=== PATIENT | female | born 1960 | race Caucasian/White ===

== ENCOUNTER 2022-08-16 12:58 | Outpatient (CLI) | payer BC, SELFPAY ==
[2022-08-16 17:07] LABS: Chloride* 96 mmol/L (96-114); Potassium* 4.6 mmol/L (3.6-5.1); Sodium* 130 mmol/L (135-149)
[2022-08-16 17:10] LABS: Blood Urea Nitrogen* 22 mg/dL (7-30); Carbon Dioxide* 22 mmol/L (20-32); Creatinine* 1.2 mg/dL (0.5-1.5); Estimated Glomerular Filt Rate 51 ml/min
[2022-08-16 17:11] LABS: Calcium* 10.2 mg/dL (8.4-10.6); Glucose* 123 mg/dL (60-115)
== END 2022-08-16 12:59 | disposition home or self-care (01) ==
PROVIDERS: PCP Family Medicine; Visit Provider Family Medicine
DX: I10 Essential (primary) hypertension (principal)
CPT/HCPCS: 80048

== ENCOUNTER 2023-02-14 08:46 | Outpatient (CLI) | payer BC, SELFPAY | END 2023-02-14 08:47 | disposition home or self-care (01) | LOC: NFLDREF 08:49 | PROVIDERS: PCP Family Medicine; Visit Provider Family Medicine | DX: E11.9 Type 2 diabetes mellitus without complications (principal); R68.89 Other general symptoms and signs; I10 Essential (primary) hypertension | CPT/HCPCS: 80061; 84443 ==

== ENCOUNTER 2023-04-21 10:43 | Outpatient (CLI) | payer MEDICARE, SELFPAY | END 2023-04-21 10:44 | disposition home or self-care (01) | LOC: NFLDREF 04-22 18:20 | PROVIDERS: PCP Family Medicine; Referring Provider Family Medicine; Visit Provider Family Medicine | DX: R31.9 Hematuria, unspecified (principal) | CPT/HCPCS: 81015 ==

== ENCOUNTER 2023-04-29 08:48 | Outpatient (CLI) | payer MEDICARE, SELFPAY ==
--- NOTE | 2023-04-29 09:00 | CRLHL7_ITS ---
For Patients: As a result of the Cures Act, medical imaging exams and procedure reports are released immediately into your electronic medical record. You may view this report before your referring provider. If you have questions, please contact your health care provider. Indication: RECURRENT UTIS Technique: Noncontrast CT abdomen and pelvis Please note that all CT scans at this facility use dose modulation, iterative reconstruction, and/or weight-based dosing when appropriate to reduce radiation dose to as low as reasonably achievable. Comparison: 04/03/2010 Findings: Scarring is present in both lung bases. No pleural effusion. Incidental calcification associated with the dome of the liver is unchanged. The gallbladder is absent. No biliary obstruction. Normal pancreas. The spleen is normal. The adrenal glands are unremarkable. No renal or ureteral stone. No hydronephrosis or hydroureter. No perinephric or periureteral stranding. The bladder is normal without stone or wall thickening. Normal uterus and ovaries. Sigmoid diverticulosis. No diverticulitis. No air within the bladder. Appendix appears normal. No adenopathy in the abdomen or pelvis. Atherosclerotic disease. No fracture. Postop changes of lumbar fusion L4-5. Severe degenerative disc disease L3-4. Impression: No renal, ureteral or bladder stone. No inflammatory changes. No urinary tract obstruction. Sigmoid diverticulosis. No diverticulitis. Please note that all CT scans at this facility use dose modulation, iterative reconstruction, and/or weight-based dosing when appropriate to reduce radiation dose to as low as reasonably achievable. Dictated by Rip Hunter MD @ 04/29/2023 12:36:32 PM (Electronically Signed)
== END 2023-04-29 08:49 | disposition home or self-care (01) ==
LOC: CT 08:49
PROVIDERS: PCP Family Medicine; Visit Provider Family Medicine
DX: N39.0 Urinary tract infection, site not specified (principal); K57.30 Diverticulosis of large intestine without perforation or abscess without bleeding
CPT/HCPCS: 74176

== ENCOUNTER 2023-05-10 02:01 | Emergency (ER) | payer MEDICARE, SELFPAY ==
[2023-05-10 02:06] VITALS: BP 171/84; PULSE 98; RESP 16; TEMP 36.1; O2SAT 98
[2023-05-10 02:16] LABS: Appearance Urine Clear (Clear); Bilirubin Urine Negative (Negative); Blood Urine Negative (Negative); Color Urine Yellow (Yellow); Glucose Urine Negative (Negative); Ketones Urine Negative (Negative); Leukocyte Esterase Urine Negative (Negative); Nitrite Urine Negative (Negative); Protein Urine Negative (Negative); Specific Gravity Urine <= 1.005 (1.000-1.030); Urobilinogen Urine 0.2 (0.2-1.0); pH Urine 5.5 (5.0-8.5)
--- NOTE | 2023-05-10 02:28 | ED.FEMALEGU ---
HPI - Female Genitourinary General Chief complaint: Urogenital Problems, Female Stated complaint: UTI Time Seen by Provider: 05/10/23 02:15 History of Present Illness HPI Narrative: Patient is a 63-year-old woman comes in stating that her chronic dysuria is worse. Patient has chronic UTIs and takes a version of Bactrim Double Strength that she got in [place]. Patient is lower abdominal cramping urinary frequency and dysuria. She states she has felt febrile at home but does not have a fever here. She has had mild nausea with no vomiting. She has had no vaginal discharge. She has not had a recent UA but states that her symptoms change this evening. No other significant symptoms noted. Related Data Home Medications Medication Instructions Recorded Confirmed albuterol sulfate 0.63 mg/3 mL 0.63 mg inhalation Q4-6H PRN 05/27/22 04/21/23 solution for nebulization aspirin 81 mg chewable tablet 81 mg PO QDAY 05/27/22 04/21/23 (Aspirin Childrens) blood sugar diagnostic (Blood 05/27/22 04/21/23 Glucose Test strips) cyanocobalamin (vitamin B-12) 1,000 mcg PO QDAY 05/27/22 04/21/23 1,000 mcg tablet epinephrine 0.3 mg/0.3 mL 0.3 mg IM ONCE 05/27/22 04/21/23 injection, auto-injector metronidazole 0.75 % topical cream 1 applic topical BID PRN 08/16/22 04/21/23 rosuvastatin 10 mg tablet 10 mg PO QDAY 03/07/23 04/21/23 sulfamethoxazole 800 1 tab PO BID 03/17/23 04/21/23 mg-trimethoprim 160 mg tablet Previous Rx's Medication Instructions Recorded albuterol sulfate 90 mcg/actuation 2 puff inhalation Q4-6H PRN 02/14/23 aerosol inhaler shortness of breath or wheezing #8.5 grams beclomethasone dipropionate 80 1 inh inhalation BID #31.8 grams 02/14/23 mcg/actuation HFA breath activated aerosol (Qvar RediHaler) carvedilol 25 mg tablet 25 mg PO BID #180 tabs 02/14/23 hydrochlorothiazide 25 mg tablet 25 mg PO QDAY #90 tabs 02/14/23 lisinopril 20 mg tablet 20 mg PO QDAY #90 tabs 02/14/23 metformin 500 mg tablet,extended 500 mg PO BID #180 tabs 02/14/23 release 24 hr semaglutide 1 mg/dose (4 mg/3 mL) 1 mg (0.75 mL) subcut QWEEK #3 mL 02/14/23 subcutaneous pen injector magnesium oxide 400 mg (241.3 mg 400 mg PO QDAY #90 tabs 03/07/23 magnesium) tablet sulfamethoxazole 800 1 tab PO BID #20 tabs 04/14/23 mg-trimethoprim 160 mg tablet (Bactrim DS) fluconazole 150 mg tablet 150 mg PO Q3D 2 doses #2 tabs 04/22/23 (Diflucan) ondansetron 8 mg disintegrating 8 mg PO Q12H PRN nausea and 04/22/23 tablet vomiting #20 tabs Allergies Allergy/AdvReac Type Severity Reaction Status Date / Time ciprofloxacin Allergy Severe Anaphylaxis Verified 04/21/23 10:41 latex Allergy Severe Difficulty Verified 04/21/23 10:41 Breathing penicillin V Allergy Severe Shortness Verified 04/21/23 10:41 of Breath adhesive Allergy Intermediate Rash Verified 04/21/23 10:41 cefaclor Allergy Intermediate Swelling Verified 04/21/23 10:41 of Lip/Tongue/Throat neomycin Allergy Intermediate rash Verified 04/21/23 10:41 polymyxin B Allergy Intermediate Rash Verified 04/21/23 10:41 zinc oxide Allergy Intermediate Hives Verified 04/21/23 10:41 Aminoglycosides Allergy Mild Verified 04/21/23 10:41 amlodipine Allergy Mild Gastrointestinal Verified 04/21/23 10:41 Upset bacitracin Allergy Mild Unknown Verified 04/21/23 10:41 shellfish derived AdvReac Intermediate Throat Verified 04/21/23 10:41 Itches triamcinolone AdvReac Intermediate Muscle Pain Verified 04/21/23 10:41 budesonide AdvReac Mild Dizziness Verified 04/21/23 10:41 formoterol AdvReac Mild Dizziness Verified 04/21/23 10:41 nitrofurantoin AdvReac Mild sore throat Verified 04/21/23 10:41 Review of Systems Status of ROS: Reports: 10 or more systems reviewed and unremarkable except as noted in History and below [facility] Medical History Hypomagnesemia ?E83.42 - Hypomagnesemia (ICD-10) Gastroesophageal reflux disease ?K21.9 - Gastro-esophageal reflux disease without esophagitis (ICD-10) Left-sided tinnitus ?H93.12 - Tinnitus, left ear (ICD-10) Mild persistent asthma ?J45.30 - Mild persistent asthma, uncomplicated (ICD-10) Retinal hemorrhage ?H35.60 - Retinal hemorrhage, unspecified eye (ICD-10) Spinal stenosis of lumbar region (09/04/10) ?M48.061 - Spinal stenosis, lumbar region without neurogenic claudication (ICD-10) Hypertension ?I10 - Essential (primary) hypertension (ICD-10) Type 2 diabetes mellitus ?E11.9 - Type 2 diabetes mellitus without complications (ICD-10) Surgical History History of section ?Z98.891 - History of uterine scar from previous surgery (ICD-10) History of cholecystectomy ?Z90.49 - Acquired absence of other specified parts of digestive tract (ICD-10) History of dilation and curettage (2011) ?Z98.890 - Other specified postprocedural states (ICD-10) History of laminectomy (2014) ?Z98.890 - Other specified postprocedural states (ICD-10) History of tonsillectomy ?Z90.89 - Acquired absence of other organs (ICD-10) Family History Paternal Grandmother Breast cancer Family/Other Depression Father Diabetes Stroke Sister Coronary artery disease Mother Lung cancer Social History (Updated 08/14/22 @ 13:32 by Marichuy Glover) Narrative: exercises regularly, , 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 EYES: No scleral icterus. LYMPH: No supraclavicular or cervical lymphadenopathy. SKIN: Visible skin seen during exam normal or with benign process only. EXT: No dependent lower extremity pedal edema. HEART: Regular rate and rhythm with no murmurs, rubs, or gallops. LUNGS: Clear to auscultation bilaterally with no crackles or wheezes. ABD: Soft, non tender, non distended. PSYCH: Good eye contact, speech is not pressured. Const: Vital Signs, click to edit/add: Vital Signs - 24 hr 05/10/23 02:06 Temperature 97.0 F L Pulse Rate [Left P ulse Oximeter] 98 Respiratory Rate 16 Blood Pressure [Ri ght Upper Arm] 171/84 H Pulse Oximetry 98 Oxygen Delivery Me thod Room Air Course Course Hospital Course: Patient seen and examined. Normal saline given basic metabolic panel CBC UA pending. Vital Signs Vital signs: Initial Vital Signs Temperature 97.0 F L 05/10/23 02:06 Temperature Source Temporal Artery Scan 05/10/23 02:06 Pulse Rate 98 05/10/23 02:06 Pulse Rhythm Regular 05/10/23 02:06 Respiratory Rate 16 05/10/23 02:06 Blood Pressure 171/84 H 05/10/23 02:06 Blood Pressure Mean 113 H 05/10/23 02:06 Blood Pressure Position Semi-Fowlers 05/10/23 02:06 Pulse Oximetry 98 05/10/23 02:06 Oxygen Delivery Method Room Air 05/10/23 02:06 Vital Signs Temperature 97.0 F L 05/10/23 02:06 Pulse Rate 98 05/10/23 02:06 Respiratory Rate 16 05/10/23 02:06 Blood Pressure 171/84 H 05/10/23 02:06 Pulse Oximetry 98 05/10/23 02:06 Oxygen Delivery Method Room Air 05/10/23 02:06 Temperature 97.0 F L 05/10/23 02:06 Pulse Rate 98 05/10/23 02:06 Respiratory Rate 16 05/10/23 02:06 Blood Pressure 171/84 H 05/10/23 02:06 Pulse Oximetry 98 05/10/23 02:06 Oxygen Delivery Method Room Air 05/10/23 02:06 MDM - Female Genitourinary MDM Narrative Medical decision making narrative: Patient is a 63-year-old woman who has chronic urinary tract infections and is on chronic Bactrim daily. She comes in tonight with dysuria. Her workup is unremarkable with normal white blood cell count and a normal UA. She does have chronic hyponatremia which is similar to previous values. I did give her a L of normal saline with improvement of her symptoms. Her abdominal exam is very soft and I do not believe she requires a CT scan. She had similar symptoms approximately [address] of the abdomen pelvis was done at that time which was reviewed tonight. No acute abnormalities were noted. Patient feels comfortable with discharge will follow-up with her primary physician next week and follow-up with the emergency room if symptoms recur. Differential Diagnosis Differential diagnosis: Likely urinary tract infection, cervicitis, ovarian cyst, ruptured ovarian cyst and cystitis Lab Data Labs: Lab Results 05/10/23 05/10/23 Range/Units 02:05 02:30 WBC 9.62 (4.50-11.00) K/uL RBC 3.14 L (4.00-5.20) m/uL Hgb 10.6 L (12.0-16.0) gm/dL Hct 30.0 L (33.0-51.0) % MCV 96 (80-100) fL MCH 34 (26-34) pg MCHC 35 (32-36) gm/dL RDW Coeff of Celine 11.5 (11.5-15.5) % Plt Count 210 (140-440) K/uL Neut % (Auto) 79.0 H (42.0-72.0) % Lymph % (Auto) 8.9 L (20-44) % [place] % (Auto) 11.3 H (0.0-11.0) % Eos % (Auto) 0.5 (0.0-7.0) % Baso % (Auto) 0.1 (0.0-3.0) % Neut # (Auto) 7.60 H (1.7-7.0) K/uL Lymph # (Auto) 0.90 (0.90-2.90) K/uL [place] # (Auto) 1.10 H (0.00-0.90) K/UL Eos # (Auto) 0.05 (0.00-0.50) K/uL Baso # (Auto) 0.01 (0.00-0.30) K/uL Abs Immat Gran (auto) 0.02 (0.00-0.30) K/uL Imm/Tot Granulo (auto) 0.2 % Sodium 130 L (135-149) mmol/L Potassium 4.2 (3.6-5.1) mmol/L Chloride 100 (96-114) mmol/L Carbon Dioxide 22 (20-32) mmol/L BUN 20 (7-30) mg/dL Creatinine 1.1 (0.5-1.5) mg/dL Estimated GFR 56 ml/min Glucose 164 H (60-115) mg/dL Calcium 9.4 (8.4-10.6) mg/dL Urine Color Yellow (Yellow) Urine Appearance Clear (Clear) Urine pH 5.5 (5.0-8.5) Ur Specific [place] <= 1.005 (1.000-1.030) Urine Protein Negative (Negative) Urine Glucose (UA) Negative (Negative) Urine Ketones Negative (Negative) Urine Blood Negative (Negative) Urine Nitrite Negative (Negative) Urine Bilirubin Negative (Negative) Urine Urobilinogen 0.2 (0.2-1.0) Ur Leukocyte Esterase Negative (Negative) Urine RBC 0-2 (0-2) Urine WBC 0-2 (0-5) Ur Squamous Epith Cells None (None-Few) Urine Bacteria None (None) Discharge Plan Discharge Clinical Impression: Dysuria Patient Disposition: Home, Self-Care Condition: Stable Instructions: Dysuria (ED) Additional Instructions: Continue current medications Follow-up with your doctor this coming week. Plenty of rest Activity Level: No Restrictions Discharge Diet: Regular Prescriptions: No Action metformin 500 mg tablet extended release 24 hr 500 mg PO BID Qty: 180 3RF lisinopril 20 mg tablet 20 mg PO QDAY Qty: 90 1RF hydrochlorothiazide 25 mg tablet 25 mg PO QDAY Qty: 90 1RF carvedilol 25 mg tablet 25 mg PO BID Qty: 180 1RF Rx Instructions: must administer with a meal/food Qvar RediHaler 80 mcg/actuation HFA aerosol breath activated 1 inh inhalation BID Qty: 31.8 3RF albuterol sulfate 90 mcg/actuation HFA aerosol inhaler 2 puff inhalation Q4-6H PRN (Reason: shortness of breath or wheezing) Qty: 8.5 5RF rosuvastatin 10 mg tablet 10 mg PO QDAY magnesium oxide 400 mg (241.3 mg magnesium) tablet 400 mg PO QDAY Qty: 90 3RF sulfamethoxazole-trimethoprim 800-160 mg tablet 1 tab PO BID sulfamethoxazole-trimethoprim [Bactrim DS] 800-160 mg tablet 1 tab PO BID Qty: 20 0RF (DME) Blood Glucose Test Strip See Rx Instructions .Route Rx Instructions: use to check blood glucose 3 times daily albuterol sulfate 0.63 mg/3 mL solution for nebulization 0.63 mg inhalation Q4-6H PRN epinephrine 0.3 mg/0.3 mL auto-injector 0.3 mg IM ONCE Rx Instructions: as a single dose; may repeat once cyanocobalamin (vitamin B-12) 1,000 mcg tablet 1,000 mcg PO QDAY aspirin [Aspirin Childrens] 81 mg tablet,chewable 81 mg PO QDAY metronidazole 0.75 % cream 1 applic topical BID PRN Ozempic 1 mg/dose (4 mg/3 mL) pen injector 1 mg subcut QWEEK Qty: 3 1RF Rx Instructions: for 4 doses fluconazole [Diflucan] 150 mg tablet 150 mg PO Q3D Qty: 2 0RF ondansetron 8 mg tablet,disintegrating 8 mg PO Q12H PRN (Reason: nausea and vomiting) Qty: 20 2RF Follow Up/Referrals: Rip Reynaga MD [Primary Care Provider] - Stand Alone Forms: [employer] Info Instructions
[2023-05-10 02:34] LABS: RBC Urine 0-2 (0-2); WBC Urine 0-2 (0-5)
[2023-05-10] MEDS: 0.9 % SODIUM CHLORIDE 1000 ml 1,000 ML IV (02:46)
[2023-05-10 03:13] LABS: Basophils Absolute Auto 0.01 K/uL (0.00-0.30); Basophils Percent Auto 0.1 % (0.0-3.0); Eosinophils Absolute Auto 0.05 K/uL (0.00-0.50); Eosinophils Percent Auto 0.5 % (0.0-7.0); Hemoglobin* 10.6 gm/dL (12.0-16.0); Immature Granulocytes Abs Auto 0.02 K/uL (0.00-0.30); Immature Granulocytes Pct Auto 0.2 %; Lymphocytes Percent Auto 8.9 % (20-44); Mean Corpuscular HGB Conc 35 gm/dL (32-36); Mean Corpuscular Hemoglobin 34 pg (26-34); Mean Corpuscular Volume 96 fL (80-100); Monocytes Percent Auto 11.3 % (0.0-11.0); Platelet Count* 210 K/uL (140-440); RDW Coefficient of Variation % 11.5 % (11.5-15.5); Red Blood Count 3.14 m/uL (4.00-5.20); White Blood Count* 9.62 K/uL (4.50-11.00)
[2023-05-10 03:15] LABS: Slide Review Reflex No
[2023-05-10 03:23] LABS: Chloride* 100 mmol/L (96-114)
[2023-05-10 03:24] LABS: Potassium* 4.2 mmol/L (3.6-5.1); Sodium* 130 mmol/L (135-149)
[2023-05-10 03:26] LABS: Carbon Dioxide* 22 mmol/L (20-32); Creatinine* 1.1 mg/dL (0.5-1.5); Estimated Glomerular Filt Rate 56 ml/min
[2023-05-10 03:27] LABS: Blood Urea Nitrogen* 20 mg/dL (7-30); Calcium* 9.4 mg/dL (8.4-10.6); Glucose* 164 mg/dL (60-115)
[2023-05-10 03:50] VITALS: BP 156/82; PULSE 88; RESP 18; O2SAT 98
== END 2023-05-10 03:51 | disposition home or self-care (01) ==
PROVIDERS: Emergency Provider Internal Medicine; PCP Family Medicine
DX: R30.0 Dysuria (principal)
CPT/HCPCS: 36415; 80048; 81001; 85025; 87040; 99283; J7030

== ENCOUNTER 2023-08-05 10:44 | Outpatient (CLI) | payer MEDICARE, SELFPAY ==
--- OUTSIDE RECORDS SUMMARY | 2023-08-05 11:36 | XMS_ITS | Continuity of Care Document ---
Author Name Unknown Organization [facility] Address [address] [place] [address] Phone Care Team Providers Care In Store Demonstrator Name Role Phone Fiordaliza Ayala Unavailable Unavailable Allergies, Adverse Reactions, Alerts Substance Reaction Status Criticality nickel Hives Active No Information ZINC Hives Active No Information Penicillins Active No Information latex Active No Information ciprofloxacin Active No Information Medications Medication Instructions Dosage Effective Dates (start - stop) Status Comments LISINOPRIL (unknown strength) Not Available - Active GLIPIZIDE (unknown strength) Not Available - Active RIOMET (unknown strength) Not Available - Active HYDROCHLOROTHIAZIDE (unknown strength) Not Available - Active CLARITIN (unknown strength) Not Available - Active Procedures Procedure Date Office/Outpatient Visit,Est, Mod 2016 X-Ray Exam Lower Spine 2-3 Views 2016 Office/Outpatient Visit,Est, Mod 2015 X-Ray Exam Lower Spine 2-3 Views 2015 Office/Outpatient Visit,Est, Mod 2015 X-Ray Exam Lower Spine 2-3 Views 2015 Office/Outpatient Visit,Est, Mod 2015 X-Ray Exam Lower Spine 2-3 Views 2015 Postop Followup Visit Lumbar Spine Fusion, Posterolateral Bilateral Low Back Disk Surgery/Decompre ss Insert Spine Fixation, Posterior 2014 Bilateral Added Spine Disk Surgery/Decom press Autograft, Spine Surgery, Local 015 Pa Assist Lumbar Spine Fusion, Posterola teral Bilateral Pa Added Spine Disk Surgery/De compress Bilateral Pa Low Back Disk Surgery/Decom press Pa Assist Insert Spine Fixation, Posteri or Office/Outpatient Visit,Est, Mod 2014 Office/Outpatient Visit,New, High X-Ray Exam Lwr Spine, Min 4 Views Office consultation, low [place] Directives Directive Yes / No Effective Date File Name No Information Encounters Encounter Description Practice Location Reason(s) For Visit Diagnoses Date Provider Providers Copied on Encounter Office/Outpa tient Visit,Est, Mod [facility], [address] [facility], [place], [place], [id number], [place] tel:[phone] [facility] Spondylolisth esis, lumbar region 1-201 7 Pelkola Fiordaliza. [facility], [address] [place] [address], [id number] , [place]. tel:[phone] Referring Provider: Galdino Gloria, [facility] [address] [place], [address]. tel:[phone] Office/Outpa tient Visit,Est, Mod [facility], [address] [place] [address], [id number], [place] tel:[phone] [facility] Spondylolisth esis, lumbar regionSpinal stenosis, lumbar region 9-201 6 Pelkola Fiordaliza. [facility], [address] [place] [address] [address], [place], [place], [id number] , [place]. tel:[phone] Referring Provider: Galdino Gloria, [facility] [address] [place], [address]. tel:[phone] Office/Outpa tient Visit,Est, Mod [facility], [address] [place] [address], [id number], [place] tel:[phone] [facility] Arthrodesis statusSpinal stenosis, lumbar regionSpondyl olisthesis, lumbar region Aug-0 4-201 6 Perra Miguel Angel. [facility], [address] [place] [address], [address], [place], [place], [id number] , [place]. tel:[phone] Referring Provider: Galdino Gloria, [facility] [address] [place], [address]. tel:[phone] Office/Outpa tient Visit,Est, Mod [facility], [address], [place], [place], [id number], [place] tel:[phone] [facility] OverweightEss ential (primary) hypertensionS shahzad stenosis, lumbar regionSpondyl olisthesis, lumbar regionArthrod esis status 6 Tiff Michelle. [facility], [address] [place] [address], [address], [place], [place], [id number] , [place]. tel:[phone] Referring Provider: Galdino Gloria, [facility] [address] [place], [address]. tel:[phone] [facility], [address] [place] [address], [id number], [place] tel:[phone] [facility] Spondylolisth esis, lumbar regionSpinal stenosis, lumbar region Oct- 5 Pelkola Fiordaliza. [facility], [address] [place] [address] [address], [place], [place], [id number] , [place]. tel:[phone] Referring Provider: Galdino Gloria, [facility] [address] [place], [address]. tel:[phone] [facility], [address], [place], [place], [id number], [place] tel:[phone] [facility] OverweightSpo ndylolisthesi s, lumbar regionSpondyl olisthesis, lumbar region Sep- 5 Tiff Michelle. [facility], [address] [place] [address], [address], [place], [place], [id number] , [place]. tel:[phone] [facility], [address] [place] [address], [id number], [place] tel:[phone] [facility] No Information 3201 5 Tiff Michelle. [facility], [address], [address], [place], [place], [id number] , [place]. tel:[phone] Referring Provider: Galdino Gloria, [facility] [address] [place], [address]. tel:[phone] Office/Outpa tient Visit,Est, Mod [facility], [address], [place], [place], [id number], [place] tel:[phone] [facility] OverweightEss ential (primary) hypertensionS shahzad stenosis, lumbar regionSpondyl olisthesis, lumbar regionRadicul opathy, lumbar region Nov-0 2-201 5 Tiff Michelle. [facility], [address] [place] [address], [address], [place], [place], [id number] , [place]. tel:[phone] Referring Provider: Galdino Gloria, [facility] [address] [place], [address]. tel:[phone] Office/Outpa tient Visit,New, High [facility], [address], [place], [place], [id number], [place] tel:[phone] [facility] Thoracic spondylosis with myelopathySpi nal stenosis of lumbar region with neurogenic claudicationA cquired spondylolisth esis Sep-2 3-201 5 Pelkola Fiordaliza. [facility], [address] [place] [address] [address], [place], [place], [id number] , [place]. tel:[phone] Referring Provider: Galdino Gloria, [facility] [address] [place], [address]. tel:[phone] Office consultation , low Z [facility], [address] [facility], [place], [address], [place] tel:[phone] [facility] No Information 6 Tiff Michelle. [facility], [address] [place] [address], [address], [place], [place], [id number] , . tel:[phone] Referring Provider: Davin Obando, [facility] [address] [place], [address]. tel:[phone] Family History Family Member Type Diagnosis Age At Onset No Information Payers Payer name Insurance type Covered alliance party [place]yn[place] [id number] [facility] [id number] Social History Type Description Quantity Date Captured Comments Alcohol Use Details Unknown Caffeine Use Details Unknown Tobacco Use Status Smoking Status No Information Sex Female Vital Signs Date / Time: Height Weight BMI Pulse Rate Blood Pressure Temperature Respiratory Rate Body Surface Area Head Circumference Head Circ. Percentile Wt./Josse. Percentile BMI percentile Pulse Ox Inhaled Ox 1:45 PM 65.25 in 93.440 kg (206.00 lbs) 34.0 2 kg/m eter (2) 92 /min 137/77 mm[Hg] Chief Complaint And Reason For Visit No Information Reason For Referral Reason For Referral No Information Plan Of Treatment Date Type Action Status Future Order: Radiology Order AP Lateral Lumbar (APLatLumb), Ordered on: Ordered Future Order: Radiology Order AP /Lat/Flex/Ext Lumb (APLatFlExL), Ordered on: Ordered History Of Present Illness Encounter Date Complaint History Of Prese nt Illness No Information Functional Status Date Functional Assessmen t No Information Instructions Date Instruction Additional Infor mation Weight Management Education Rela jannette to Overweight Weight management: I nstructed to return to General Practitioner timeframe: 1 Month. Related to Overweight Weight Management Education Rela jannette to Overweight Weight management: I nstructed to return to General Practitioner timeframe: 1 Month. Related to Overweight Blood Pressure Management Relate d to Unspecified Essential Hypertension Instructed to return to General Practitioner timeframe: 1 Month. Related to Unspecified Essential Hypertension Weight Management Related to Ove rweight Weight management: R efer to Referral to General Practitioner timeframe: 1 Month. Related to Overweight Exercise education Related to Un specified Essential Hypertension Refer to Referral to General Practitioner timeframe: 1 Month. Related to Unspecified Essential Hypertension Assessments Type Assessment Date assessment Spondylolisthesis, lumbar region Patient Care Teams Name Effective Dates (start - stop) Status Members No Information
== END 2023-08-05 10:45 | disposition home or self-care (01) ==
LOC: FBOREF 11:34
PROVIDERS: PCP Family Medicine; Visit Provider Family Medicine
DX: I10 Essential (primary) hypertension (principal); N39.0 Urinary tract infection, site not specified; E11.9 Type 2 diabetes mellitus without complications
CPT/HCPCS: 80048; 85025

== ENCOUNTER 2023-08-21 15:14 | Outpatient (CLI) | payer MEDICARE, SELFPAY ==
--- OUTSIDE RECORDS SUMMARY | 2023-08-21 15:16 | XMS_ITS | Continuity of Care Document ---
Author Name Unknown Organization [facility] Address [address] [place] [address] Phone Care Team Providers Care Leading Firefighter Name Role Phone Norberto Ayalaca Unavailable Unavailable Allergies, Adverse Reactions, Alerts Substance [...] Office/Outpa tient Visit,Est, Mod [facility], [address] [facility], [place], [place], [id number], [place] tel:[phone] [facility] Spondylolisth esis, lumbar region 1-201 7 Pelkola Fiordaliza. [facility] [place], [address] [place] [address], [id number] , [place]. tel:[phone] Referring Provider: Galdino Gloria, [facility] [address] [place], [address]. tel:[phone] Office/Outpa tient Visit,Est, Mod [facility], [address] [place] [address], [id number], [place] tel:[phone] [facility] Spondylolisth esis, lumbar regionSpinal stenosis, lumbar region 9-201 6 Pelkola Fiordaliza. [facility] [place], [address] [place] [address] [address], [place], [place], [id number] , [place]. tel:[phone] Referring Provider: Galdino Gloria, [facility] [address] [place], [address]. tel:[phone] Office/Outpa tient Visit,Est, Mod [facility], [address] [place] [address], [id number], [place] tel:[phone] [facility] Arthrodesis statusSpinal stenosis, lumbar regionSpondyl olisthesis, lumbar region Aug-0 4-201 6 Perra Miguel Angel. [facility], [address] [place] [address], [address], [place], [place], [id number] , [place]. tel:[phone] Referring Provider: Galdino Gloria, [facility] [address] [place], [address]. tel:[phone] Office/Outpa tient Visit,Est, Mod [facility], [address], [place], [place], [id number], [place] tel:[phone] [facility] OverweightEss ential (primary) hypertensionS shahzad stenosis, lumbar regionSpondyl olisthesis, lumbar regionArthrod esis status 6 Tiff Michelle. [facility] [place], [address] [place] [address], [address], [place], [place], [id number] , [place]. tel:[phone] Referring Provider: Galdino Gloria, [facility] [address] [place], [address]. tel:[phone] [facility], [address] [place] [address], [id number], [place] tel:[phone] [facility] Spondylolisth esis, lumbar regionSpinal stenosis, lumbar region Oct- 5 Pelkola Fiordaliza. [facility] [place], [address] [place] [address] [address], [place], [place], [id number] , [place]. tel:[phone] Referring Provider: Galdino Gloria, [facility] [address] [place], [address]. tel:[phone] [facility], [address], [place], [place], [id number], [place] tel:[phone] [facility] OverweightSpo ndylolisthesi s, lumbar regionSpondyl olisthesis, lumbar region Sep- 5 Tiff Michelle. [facility] [place], [address] [place] [address], [address], [place], [place], [id number] , [place]. tel:[phone] [facility], [address] [place] [address], [id number], [place] tel:[phone] [facility] No Information 3201 5 Tiff Michelle. [facility], [address], [address], [place], [place], [id number] , [place]. tel:[phone] Referring Provider: Galdino Gloria, [facility] [address] [place], [address]. tel:[phone] Office/Outpa tient Visit,Est, Mod [facility], [address], [place], [place], [id number], [place] tel:[phone] [facility] OverweightEss ential (primary) hypertensionS shahzad stenosis, lumbar regionSpondyl olisthesis, lumbar regionRadicul opathy, lumbar region Nov-0 2-201 5 Tiff Michelle. [facility] [place], [address] [place] [address], [address], [place], [place], [id number] , [place]. tel:[phone] Referring Provider: Galdino Gloria, [facility] [address] [place], [address]. tel:[phone] Office/Outpa tient Visit,New, High [facility], [address], [place], [place], [id number], [place] tel:[phone] [facility] Thoracic spondylosis with myelopathySpi nal stenosis of lumbar region with neurogenic claudicationA cquired spondylolisth esis Sep-2 3-201 5 Pelkola Fiordaliza. [facility] [place], [address] [place] [address] [address], [place], [place], [id number] , [place]. tel:[phone] Referring Provider: Galdino Gloria, [facility] [address] [place], [address]. tel:[phone] Office consultation , low Z [facility] [place], [address] [facility], [place], [address], [place] tel:[phone] [facility] No Information 6 Tiff Michelle. [facility] [place], [address] [place] [address], [address], [place], [place], [id number] , . tel:[phone] Referring Provider: Davin Obando, [facility] [address] [place], [address]. tel:[phone] Family History Family Member Type Diagnosis Age At Onset No Information Payers Payer name Insurance type Covered green party ID [place]yn[place] [id number] [facility] [id number] Social History Type Description Quantity Date Captured [...]
--- NOTE | 2023-08-21 15:40 | CRLHL7_ITS ---
For Patients: As a result of the Century Cures Act, medical imaging exams and procedure reports are released immediately into your electronic medical record. You may view this report before your referring provider. If you have questions, please contact your health care provider. BILATERAL SCREENING MAMMOGRAM WITH COMPUTER-AIDED DETECTION AND TOMOSYNTHESIS TECHNIQUE: CC and MLO views were obtained. These mammographic images have been obtained using full-field digital technique. These mammographic images were interpreted with the benefit of computer-aided detection. Breast tomosynthesis was used in this interpretation. COMPARISON FILM: 09/04/21, 06/12/20, 03/19/19. FINDINGS: The breasts are heterogeneously dense, which may obscure small masses. IMPRESSION: There is no radiographic evidence for malignancy. ASSESSMENT: BI-RADS Category 1: Negative RECOMMENDATION: Routine screening mammogram in 1 year. A lay language report of this examination will be provided to the patient. IVONNE COSTA M.D. Diagnostic/Nuclear Medicine Radiologist [email or web address] Transcribed: 1:[address]/Dictated by: Ivonne Costa MD @ 08/22/2023 10:02:00 AM (Electronically Signed)
== END 2023-08-21 15:15 | disposition home or self-care (01) ==
LOC: MAMMO 15:14
PROVIDERS: PCP Family Medicine; Visit Provider Family Medicine
DX: Z12.31 Encounter for screening mammogram for malignant neoplasm of breast (principal); R92.2 Inconclusive mammogram
CPT/HCPCS: 77063; 77067

== ENCOUNTER 2024-02-27 09:57 | Outpatient (CLI) | payer MEDICARE, SELFPAY | END 2024-02-27 09:58 | disposition home or self-care (01) | PROVIDERS: PCP Family Medicine; Visit Provider Family Medicine | DX: E11.9 Type 2 diabetes mellitus without complications (principal); I10 Essential (primary) hypertension; Z79.84 Long term (current) use of oral hypoglycemic drugs | CPT/HCPCS: 80048; 80061; 84460; 87086 ==

== ENCOUNTER 2024-06-09 10:58 | Outpatient (CLI) | payer MEDICARE, SELFPAY ==
--- OUTSIDE RECORDS SUMMARY | 2024-06-09 11:03 | XMS_ITS | Referral Summary ---
Author Organization [facility] Address [address] [place] [address] Care Team Providers Care Cell Attendant Name Role Phone Elsewhere, Pcp Primary Care Provider Unavailabl e Source Comments Patient records contain information from all sites at [facility]. For routine questions regarding patient records, call [phone] during business hours, M-F 8:00 AM - 5:00 PM Central Time. Record requests for emergency care only can be directed to [phone] at any time.[facility] Allergies Active Allergy Reactions Criticality Noted Date Comments Adhesive Rash Medium 09/04/2015 Aminoglycosides Other (see comments),Rash High 03/23/2018 Unknown, mild reaction Amlodipine Anaphylaxis High 01/14/2013 Anesthetics - Amide Type - Select Amino Amides Rash,Other (see comments) High 09/04/2015 Skin redness, topical Anesthetics - Blanca Type- Parabens Rash Medium 09/04/2015 Skin redness Bacitracin Other (see comments) Low 08/16/2022 Bacitracin-Polymyxin B Rash Medium 09/04/2015 Skin redness Banana Rash Medium 02/23/2023 Oral skin sheds/rash Budesonide Other (see comments) Low 09/04/2015 Painful skin Cefaclor Other (see comments) High 08/16/2022 Other reaction(s): Swelling of Lip/Tongue/Throat Ciprofloxacin Anaphylaxis,Hives (Reselect Reaction) High 09/04/2015 Throat swelling Formoterol Other (see comments) Low 09/04/2015 Painful skin Kiwi Rash Medium 02/23/2023 Oral skin sheds/rash Latex Shortness of breath (Reselect Reaction),Rash High 01/14/2013 Neomycin Rash Medium 09/04/2015 Skin redness Nitrofurantoin Other (see comments) Low 08/16/2022 Mild sore throat Penicillin V Other (see comments),Shortness of breath (Reselect Reaction) High 08/16/2022 Penicillins Shortness of breath (Reselect Reaction) High 01/14/2013 Polymyxin B Rash High 02/14/2023 Shellfish Containing Products Anaphylaxis High 09/04/2015 Throat itches Shellfish Derived Anaphylaxis High 08/16/2022 Triamcinolone Rash,Myalgia High 09/04/2015 Skin redness Zinc Oxide Hives (Reselect Reaction) High 03/23/2018 Medications Medication Sig Dispensed Refills Start Date End Date Status albuterol (ACCUNEB) 2.5 mg /3 mL nebulizer solution 3 mL every 4 (four) hours as needed for wheezing or shortness of breath. 1 12/19/2017 Active lisinopril (PRINIVIL,ZESTRIL) 20 mg tablet Take 20 mg by mouth at bedtime. 1 12/25/2017 Active beclomethasone (QVAR) 80 mcg/actuation inhaler Inhale 1 puff 2 (two) times a day. 1 puff twice a day 01/14/2013 Active famotidine (PEPCID) 10 mg tablet Take 10 mg by mouth at bedtime. 01/14/2013 Active Contour Next Test Strips strips USE 1 STRIP TO CHECK GLUCOSE THREE TIMES DAILY 06/14/2021 Active carvediloL (COREG) 25 mg tablet Take 25 mg by mouth 2 (two) times a day. 06/12/20[address] Active [address] tablet Take 81 mg by mouth daily. Active metFORMIN XR (GLUCOPHAGE-XR) 500 mg 24 hr tablet Take 1 tablet (500 mg total) by mouth 2 (two) times a day. Resume Metformin on the evening of 02/26/23 02/24/2023 Active magnesium oxide (MAG-OX) 400 mg (241.3 mg magnesium) tablet Take 400 mg by mouth daily. 03/10/2023 Active albuterol 90 mcg/actuation inhaler Inhale 2 puffs every 4 (four) hours as needed for shortness of breath or wheezing. 02/14/2023 Active semaglutide (OZEMPIC) 1 mg/dose (4 mg/3 mL) injection Inject 1 mg under the skin once a week. 02/14/2023 Active fluticasone propionate (FLONASE) 50 mcg/actuation nasal spray Administer 1 spray into each nostril daily. Active nystatin (MYCOSTATIN) 100,000 unit/gram cream Apply to rash involving abdominal fold twice daily as needed 30 g 2 03/24/2023 Active ondansetron ODT (ZOFRAN-ODT) 4 mg disintegrating tablet Dissolve 1 tablet (4 mg total) in the mouth every 12 (twelve) hours. 10 tablet 03/24/2023 Active rosuvastatin (CRESTOR) 10 mg tablet Take 1 tablet (10 mg total) by mouth at bedtime. 90 tablet 3 03/24/2023 Active sulfamethoxazole-trim ethoprim (BACTRIM DS) 800-160 mg per tablet 04/14/2023 Act jeremy fluconazole (DIFLUCAN) 150 mg tablet as needed. 04/22/2023 Active Active Problems Problem Noted Date Diagnosed Date Dehydration 03/23/2023 Hyperkalemia 03/23/2023 Hyponatremia 03/23/2023 Fatigue 03/22/2023 Failure Renal Acute (Acute Kidney Injury) 2022 Asthma Mild Persistent 02/23/2023 3 Hemorrhage Retinal 02/23/2023 02/23/2023 Tinnitus Left 02/23/2023 02/23/2023 Non-ST Elevation Myocardial Infarction 3 Supraventricular Tachycardia, Unspecified 2022 Pain Chest 02/23/2023 Asthma Moderate Persistent 06/15/201302/23 Diabetes Mellitus Type 2 06/15/2013 023 Gastroesophageal Reflux Disease 06/15/2013 02/23/2023 Hypertension Essential Primary 06/15/2013 0 02/23/2023 Stenosis Spinal 09/04/2010 02/23/2023 Overview (02/23/2023): L4-L5 L3-5 decompression 09/05/2015 Immunizations Name Administration Dates Next Due H1N1 Inj 09/26/2009 HepB Adult 01/04/2002,11/10/2000,08/13/2000 Influenza TIV (IM) 07/22/2013 Influenza Whole 08/17/2009 Influenza, Injectable, Quadrivalent 04/2022,08/22/2021,07/11/2020,2015,08/02/2016,07/22/2013,07/18/2012,1 ,07/20/2009 Influenza, Seasonal, Injectable 07/22/2013,07/18,07/20/2009 PPSV23 08/18/2006 RZV (SHINGRIX) 04/28/2019,02/18/2019 Rabies (Rabavert) 06/13/2010,06/06/2010 Rabies, intramuscular, historical 06/13/2010,02/2010 Td (Adult), adsorbed 04/14/2020 Tdap 09/28/2008 influenza vaccine QV(FLUBLOK ) (18 years or older) (PF) 08/08/2022,08/22/2021,07/11/2020 influenza vaccine quad (FLUZONE/FLUARIX) (6 months and older)(PF) 08/05/2019,07/31/2018,07/31/2017,2014,09/26/2009 Social History Tobacco Use Types Packs/Day Years Used Date Smoking Tobacco: Former Cigarettes 2.5 11.4 0 11/03/1972 - 03/23/1984 Smokeless Tobacco: Never Tobacco Cessation:Counseling Given: Not Answered Alcohol Use Standard Drinks/Week Comments Yes 2 (1 standard drink = 0.6 oz pure alcohol) maybe once a week maybe every other Humiliation, Afraid, Rape, and Kick questionnair e Answer Date Recorded Within the last year, have y ou been afraid of your partner or ex-partner? No 04/22/2023 Within the last year, have y ou been humiliated or emotionally abused in other ways by your partner or ex-partner? No Within the last year, have y ou been kicked, hit, slapped, or otherwise physically hurt by your partner or ex-partner? No 04/22/2023 Within the last year, have y ou been raped or forced to have any kind of sexual activity by your partner or ex-partner? No 04/22/2023 Overall Financial Resource Strain (CARDIA) Answe r Date Recorded How hard is it for you to pa y for the very basics like food, housing, medical care, and heating? Not hard at all 04/22/2023 Exercise Vital Sign Answer Date Recorde d On average, how many days pe r week do you engage in moderate to strenuous exercise (like a brisk walk)? 5 days 04/22/2023 On average, how many minutes do you engage in exercise at this level? 30 min 04/22/2023 Hunger Vital Sign Answer Date Recorded Within the past 12 months, y ou worried that your food would run out before you got the money to buy more. Never true 04/22/20 Within the past 12 months, t he food you bought just didn't last and you didn't have money to get more. Never true 04/22/2023 PRAPARE - Transportation Answer Date Re corded In the past 12 months, has l ack of transportation kept you from medical appointments or from getting medications? No 04/04 In the past 12 months, has l ack of transportation kept you from meetings, work, or from getting things needed for daily living? No 04/22/2023 Nutrition Answer Date Recorded Nutrition: EVOO Fat Source Unknown 04/22 On average, how many serving s of fruits and vegetables do you eat per day (serving size is equal to 1 cup or approximately the size of a tennis ball)? 5 or more 04/22/2023 Dental Answer Date Recorded Dental: Regular Dentist Yes 04/22/20 Employment Answer Date Recorded Employment status Retired 04/22/2023 Housing Stability Answer Date Recorded What is your living situation today? I have a [facility] to live 04/22/2023 Sex and Gender Information Value Date Recorded Sex Assigned at Female 04/22/2023 2:51 PM CDT Gender Identity Female 04/22/2023 2:51 PM CDT Sexual Orientation Straight 04/22/2023 2: 51 PM CDT Last Filed Vital Signs Vital Sign Reading Time Taken Comments Blood Pressure 129/67 04/23/2023 8:22 AM CDT Pulse 66 04/23/2023 8:22 AM CDT Temperature 35.9 ??C (96.6 ??F) 03/24/2023 10:32 AM C DT Respiratory Rate 14 03/24/2023 10:32 AM CDT Oxygen Saturation 100% 03/24/2023 10:32 AM CDT Inhaled Oxygen Concentration - - Weight 75.4 kg (166 lb 3.6 oz) 04/23/2023 8:22 A M CDT Height 167 cm (5' 5.75) 03/22/2023 10:08 PM CDT Body Mass Index 27.03 03/22/2023 10:08 PM CDT Plan of Treatment Upcoming Encounters Date Type Department Care Team (Late st Contact Info) Description 06/22/2024 2:00 PM CDT Office Visit Department of Dermatology in [address] [phone] Mikhail Delgado M.D. [address] [place] [address] Discharge Disposition: Home or Self Care Medical Devices Implanted Type Area [employer] Device Identifier Shelf Expiration Date Model / Serial / Lot Spine Implant Spine Implant Spine Lumbar Procedures Procedure Name Priority Date/Time Associated Diagnosis Comments LIPID PANEL, S Routine 04/23/2023 9:24 AM CDT Non-ST Elevation Myocardial Infarction (HCC) Tachycardia Supraventricular (HCC) Diabetes Mellitus Type 2 (HCC) Hypertension Essential Primary BASIC METABOLIC PANEL, S/P Routine 03/24/2023 6:49 AM CDT HEMOGLOBIN A1C, B Routine 02/24/2023 3:4 0 AM CDT from Last 3 Months or Most Recently Relevant to Health Maintenance Results * (ABNORMAL) Lipid Panel (04/23/2023 9:24 AM CDT) Triglycerides 203(H) mg/dL 04/23/2023 9:46 AM CDT CNCT Comment: ----REFERENCE VALUE---- Normal: <150 mg/dL Borderline High: 150-199 mg/dL High: 200-499 mg/dL Very High: > or =500 mg/dL Cholesterol, Total 154 mg/dL 2022 9:46 AM CDT CNCT Comment: ----REFERENCE VALUE---- Desirable: < 200 mg/dL Borderline High: 200 - 239 mg/dL High: > or = 240 mg/dL Cholesterol, LDL, Calculated 80 mg/dL 04/23/2023 9:46 AM CDT CNFL Comment: ----REFERENCE VALUE---- Desirable: <100 mg/dL Above Desirable: 100-129 mg/dL Borderline High: 130-159 mg/dL High: 160-189 mg/dL Very High: >=190 mg/dL ----ADDITIONAL INFORMATION---- LDL cholesterol calculated using the Roman/NIH equation. Cholesterol, HDL 40(L) >=50 mg/dL 04/23/20 9:46 AM CDT CNFL Cholesterol, Non-HDL, Calculated 114 mg/dL 04/23/2023 9:46 AM CDT CNFL Comment: ----REFERENCE VALUE---- Desirable: <130 mg/dL Above Desirable: 130-159 mg/dL Borderline High: 160-189 mg/dL High: 190-219 mg/dL Very High: > or =220 mg/dL Fasting (8 HR or more) Yes 04/23/2023 9:27 AM CDT CNFL Blood (Blood, Venous) 04/23/2023 9:24 AM CDT 04/23/2023 9:27 AM CDT Bob Alvarado M.D. LAB BLOOD ADD-ON Performing Organization Address [facility]/State/[facility] Co de Phone Number [facility] [address] [place] [address], [facility] [[email or web address]] CNFL [facility] [place] [address] * (ABNORMAL) Basic Metabolic Panel (03/24/2023 6:49 AM CDT) Potassium, P 5.2 3.6 - 5.2 mmol/L 03/24/2023 7:17 AM CDT CNFL Sodium, P 132(L) 135 - 145 mmol/L 03/24/2023 7:17 AM CDT CNFL Chloride, P 105 98 - 107 mmol/L 03/24/2023 7:17 AM CDT CNFL Bicarbonate, P 19(L) 22 - 29 mmol/L 03/24/2023 7:17 AM CDT CNFL Anion Gap, P 8 7 - 15 03/24/2023 7:17 AM CDT CNFL BUN (Blood Urea Nitrogen), P 17 6 - 21 mg/dL 03/24/2023 7:17 AM CDT CNFL Creatinine 1.49(H) 0.59 - 1.04 mg/dL 03/24/2023 7:17 AM CDT CNFL Estimated GFR (eGFR) 39(L) >=60 mL/min/BSA 03/24/2023 7:17 AM CDT CNFL Comment: Estimated GFR calculated using the 2020 CKD_EPI creatinine equation. Calcium, Total, P 9.1 8.8 - 10.2 mg/dL 03/24/2023 7:17 AM CDT CNFL Glucose, P 131 70 - 140 mg/dL 03/24/2023 7:17 AM CDT CNFL Blood (Blood, Venous) 03/24/2023 6:49 AM CDT 03/24/2023 6:55 AM CDT Chanel Kinsey M.D. LAB BLOOD ADD-ON [facility] [address] [place] [address], [facility] [[email or web address]] CNFL [facility] [place] [address] * (ABNORMAL) Hemoglobin A1c (02/24/2023 3:40 AM CDT) Hemoglobin A1c, B 5.9(H) 4.0 - 5.6 % 02/24/2023 4:27 AM CDT DTL Comment: Hemoglobin A1c values of 5.7-6.4 percent indicate an increased risk for developing diabetes mellitus. In diabetic patients, HbA1c goals should be discussed with healthcare provider. Blood (Blood, Venous) 02/24/2023 3:40 AM CDT 02/24/2023 3:58 AM CDT Lori Anderson APRN, C.N.P. LAB BLOOD ADD-ON ED [facility] [address] [place] [address], [place] DTL [facility] [facility] [employer] [facility] [address] [place] [address] from Last 3 Months or Most Recently Relevant to Health Maintenance Advance Directives For more information, please contact: [phone] * Full Code (Latest Code Status on File) Date Activated Date Inactivated Comments 03/22/2023 10:39 PM 03/24/2023 1:12 PM Question Answer Comments Full Code: Not Discussed Due to: Patient not available * Full Code Date Activated Date Inactivated Comments 02/23/2023 8:26 PM 02/24/2023 8:04 PM Question Answer Comments Full Code: Discussed Care Teams Cell Attendant Relationship Specialty Start Date End Date Elsewhere, Pcp PCP - General Internal Medicine 02/23/23
--- OUTSIDE RECORDS SUMMARY | 2024-06-09 11:03 | XMS_ITS | Data Portability ---
Author Organization [facility], [facility] Address [address] [place] [address] Care Team Providers Care Steel Chipper Name Role Phone BERTHA THOMPSON Referring Provider Assessment No assessment recorded. Plan of Treatment Reminders Order Date Submit Date Provider Last Modified By Organization Details Last Modified Time Details Appointments ESTABLISH ED 20 2023 09:20A M BHANU Enriquez Not available Not available Not available Lab urinalysi s, dipstick 2022 023 [facility], [address], [address], [address], 06/18/2023 09:24:09 urinalysi s, microscop ic 2022 023 [facility], [address], [address], [place], [address], 08/20/2023 13:00:25 urinalysi s, dipstick 2022 023 [facility], [address], [address], [place], [address], 08/20/2023 13:00:23 culture, urine 2022 023 [facility], [address], [address], [place], [address], 08/22/2023 09:11:01 Referral None recorded. Procedures None recorded. Surgeries None recorded. Imaging None recorded. Medication Orders Estrace 0.01% (0.1 mg/gram) vaginal cream 2022 023 [id number] [facility], [address] [place], [address], 02/26/2024 10:35:28 Bactrim 400 mg-80 mg tablet 2023 024 [email or web address] [facility], [address] [place], [address], 03/01/2024 10:46:17 Patient TargetsNo targets recorded. Patient Instructions Encounter Date Encounter Id Patient Instructions Last Modified By Organization Details Last Modified Time 06/18/2023 [id number] Recurrent urinar y tract infections (UTIs): -Discussed causes and risk factors for recurrent UTIs and gave handout. -Discussed prophylactic antibiotics to break cycle of infection. She is on a dialy low dose bactrim dose, since May. discussed discontinuing this in follow up. -Discussed use of vaginal estrogen cream (estradiol) in prevention of UTIs. Discussed risks vs. benefits. Apply fingerful amount (0.5 g) vaginally every night x 1 week, then 2-3 x per week thereafter. -Recommend conservative management including timed voiding every 3 hours, adequate hydration with 48-64 ounces of water daily, avoidance of constipation, cranberry tablets, and probiotics. Consider D-Mannose. -Consider anatomic evaluation and cystoscopy if recurrent UTIs remain an issue with conservative management. -CT done in March 2023 which was unremarkable for stone or obstructions. -Follow-up in 3 months, sooner if issues arise. [email or web address] Not available 06/18/2023 10:00:33 08/20/2023 [id number] Recurrent urinar y tract infections (UTIs): -She is symptomatic today for infection. She is okay awaiting urine culture results prior to initiating appropriate antibiotic treatment. Counseled to go to the ED if she develops fever, chills, nausea, vomiting, or other concerning symptoms. -Test and treat as symptomatic for infection, based off urine culture. -Continue use of vaginal estrogen cream (estradiol) in prevention of UTIs. Discussed risks vs. benefits. Apply fingerful amount (0.5 g) vaginally every night x 1 week, then 2-3 x per week thereafter. -Recommend conservative management including timed voiding every 3 hours, adequate hydration with 48-64 ounces of water daily, avoidance of constipation, cranberry tablets, and probiotics. Consider D-Mannose. -Consider anatomic evaluation and cystoscopy if recurrent UTIs remain an issue with conservative management. -CT done in March 2023 which was unremarkable for stone or obstructions. -Follow-up in 6-9 months when back in the spring, sooner if needed. [email or web address] Not available 08/20/2023 13:17:59 03/01/2024 [id number] Recurrent urinar y tract infections (UTIs): -UC results negative from 02/26 with [place]. -Test and treat as symptomatic for infection, based off urine culture. -Discussed low dose prophylaxis to break cycle of infection. Start low dose bactrim x 3 months, then discontinue. -Continue use of vaginal estrogen cream (estradiol) in prevention of UTIs. 2-3 x per week. -Recommend conservative management including timed voiding every 3 hours, adequate hydration with 48-64 ounces of water daily, avoidance of constipation, cranberry tablets, and probiotics. -Consider anatomic evaluation and cystoscopy if recurrent UTIs remain an issue with conservative management. -CT in March 2023 which was unremarkable for stone or obstructions. -Follow-up in 6 months, sooner if symptomatic. [email or web address] Not available 03/01/2024 10:47:10 Reason for Referral None Reported. Results Created Date Observation Date Name Description Value Unit Range Abnormal Flag LastModifiedBy Organization Detail LastModifiedTime 06/18/2006/18/2023 UA WITHO UT MICRO - CS URISC AN blood - uriscan NEGATI VE negati ve Not Available [facility] [address] [facility] [address], [place], [address], 06/18/2023 09:24:09 06/18/2006/18/2023 UA WITHO UT MICRO - CS URISC AN bilirubin - uriscan NEGATI VE mg/dL negati ve Not Available [facility] [address] [facility] [address], [place], [address], 06/18/2023 09:24:09 06/18/20 23 06/18/2023 UA WITHO UT MICRO - CS URISC AN urobilinogen - uriscan NORMAL mg/dL normal Not Available [facility] [address] [facility] [address], [place], [address], 06/18/2023 09:24:09 06/18/20 23 06/18/2023 UA WITHO UT MICRO - CS URISC AN ketones - uriscan NEGATI VE mg/dL negati ve Not Available [facility] [address] [facility] [address], [place], [address], 06/18/2023 09:24:09 06/18/20 23 06/18/2023 UA WITHO UT MICRO - CS URISC AN protein - uriscan NEGATI VE mg/dL negati ve Not Available [facility] [address] [facility] [address], [place], [address], 06/18/2023 09:24:09 06/18/20 23 06/18/2023 UA WITHO UT MICRO - CS URISC AN nitrites - uriscan NEGATI VE negati ve Not Available [facility] [address] [facility] [address], [place], [address], 06/18/2023 09:24:09 06/18/20 23 06/18/2023 UA WITHO UT MICRO - CS URISC AN glucose - uriscan NEGATI VE mg/dL negati ve Not Available [facility] [address] [facility] [address], [place], [address], 06/18/2023 09:24:09 06/18/20 23 06/18/2023 UA WITHO UT MICRO - CS URISC AN pH - uriscan 6.50 5.00-9 .00 Not Available [facility] [address] [facility] [address], [place], [address], 06/18/2023 09:24:09 06/18/20 23 06/18/2023 UA WITHO UT MICRO - CS URISC AN sp. gravity - uriscan 1.02 1.01-1 .03 Not Available [facility] [address] [facility] [address], [place], [address], 06/18/2023 09:24:09 06/18/20 23 06/18/2023 UA WITHO UT MICRO - CS URISC AN leukocytes - uriscan NEGATI VE negati ve Not Available [facility] [address] [place] [address] [address], [place], [address], 06/18/2023 09:24:09 06/18/2006/18/2023 UA WITHO UT MICRO - CS URISC AN color - uriscan YELLOW lt. yellow ;yello w Not Available [facility] [address] [place] [address] [address], [place], [address], 06/18/2023 09:24:09 06/18/20 23 06/18/2023 UA WITHO UT MICRO - CS URISC AN clarity - uriscan CLEAR clear Not Available [facility] [address] [place] [address] [address], [place], [address], 06/18/2023 09:24:09 06/18/20 23 06/18/2023 UA WITHO UT MICRO - CS URISC AN total urine volume (mL) 40 /mL Not Available [facility] [address] [place] [address] [address], [place], [address], 06/18/2023 09:24:09 08/20/20 23 08/20/2023 UA WITHO UT MICRO - CS URISC AN blood - uriscan LARGE negati ve abnormal Not Available [facility] [address] [place] [address] [address], [place], [address], 08/20/2023 13:00:23 08/20/20 23 08/20/2023 UA WITHO UT MICRO - CS URISC AN bilirubin - uriscan NEGATI VE mg/dL negati ve Not Available [facility] [address] [facility] [address], [place], [address], 08/20/2023 13:00:23 08/20/2008/20/2023 UA WITHO UT MICRO - CS URISC AN urobilinogen - uriscan NORMAL mg/dL normal Not Available [facility] [address] [facility] [address], [place], [address], 08/20/2023 13:00:23 08/20/20 23 08/20/2023 UA WITHO UT MICRO - CS URISC AN ketones - uriscan NEGATI VE mg/dL negati ve Not Available [facility] [address] [facility] [address], [place], [address], 08/20/2023 13:00:23 08/20/20 23 08/20/2023 UA WITHO UT MICRO - CS URISC AN protein - uriscan NEGATI VE mg/dL negati ve Not Available [facility] [address] [facility] [address], [place], [address], 08/20/2023 13:00:23 08/20/20 23 08/20/2023 UA WITHO UT MICRO - CS URISC AN nitrites - uriscan NEGATI VE negati ve Not Available [facility] [address] [place] [address] [address], [place], [address], 08/20/2023 13:00:23 08/20/20 23 08/20/2023 UA WITHO UT MICRO - CS URISC AN glucose - uriscan NEGATI VE mg/dL negati ve Not Available [facility] [address] [facility] [address], [place], [address], 08/20/2023 13:00:23 08/20/20 23 08/20/2023 UA WITHO UT MICRO - CS URISC AN pH - uriscan 5.50 5.00-9 .00 Not Available [facility] [address] [facility] [address], [place], [address], 08/20/2023 13:00:23 08/20/20 23 08/20/2023 UA WITHO UT MICRO - CS URISC AN sp. gravity - uriscan <=1.01 1.01-1 .03 Not Available [facility] [address] [place] [address] [address], [place], [address], 08/20/2023 13:00:23 08/20/2008/20/2023 UA WITHO UT MICRO - CS URISC AN leukocytes - uriscan SMALL negati ve abnormal Not Available [facility] [address] [place] [address] [address], [place], [address], 08/20/2023 13:00:23 08/20/2008/20/2023 UA WITHO UT MICRO - CS URISC AN color - uriscan YELLOW lt. yellow ;yello w Not Available [facility] [address] [place] [address] [address], [place], [address], 08/20/2023 13:00:23 08/20/20 23 08/20/2023 UA WITHO UT MICRO - CS URISC AN clarity - uriscan CLEAR clear Not Available [facility] [address] [place] [address] [address], [place], [address], 08/20/2023 13:00:23 08/20/20 23 08/20/2023 UA WITHO UT MICRO - CS URISC AN total urine volume (mL) 40 /mL Not Available [facility] [address] [place] [address] [address], [place], [address], 08/20/2023 13:00:23 08/20/2008/20/2023 UA MICRO SCOPI C U-WBC 2 - 5 [hpf] 0 - 2 abnormal Not Available [facility] [address] [place] [address] [address], [place], [address], 08/20/2023 13:00:25 08/20/20 23 08/20/2023 UA MICRO SCOPI C U-RBC 0 - 2 [hpf] 0 - 2 Not Available [facility] [address] [facility] [address], [place], [address], 08/20/2023 13:00:25 08/20/20 23 08/20/2023 UA MICRO SCOPI C bacteria SMALL [hpf] negati ve abnormal Not Available [facility] [address] [facility] [address], [place], [address], 08/20/2023 13:00:25 08/20/20 23 08/20/2023 UA MICRO SCOPI C squamous epi SMALL /lpf negati ve,sma ll Not Available [facility] [address] [facility] [address], [place], [address], 08/20/2023 13:00:25 08/20/20 23 08/20/2023 URINE CULTU RE final report MICROB IOLOGY RESULT S abnormal Not Available [facility] [address] [facility] [address], [place], [address], 08/22/2023 09:11:01 Result Notes None recorded. Problems Name Status Onset Date Resolution Date Notes Provider Name and Address Organization Details Recorded Time Diabetes mellitus Active 023 Jaleesa garza [facility] 08/20/2023 12:29:05 Gastroesophageal reflux disease Active 023 Jaleesa garza [facility] 08/20/2023 12:29:22 Hypertensive disorder Active 023 Jaleesa garza [facility] 08/20/2023 12:29:39 Aspirin therapy Active 024 Jaleesa garza [facility] 03/01/2024 10:12:44 History of statin therapy Active 024 Jaleesa garza [facility] 03/01/2024 10:13:02 Problem Notes None recorded. Procedures Surgical History Date Name Laterality Status Provider Name and Address Organization Details Recorded Time 03/01/20 24 Past Data Reviewed completed BHANU Enriquez [address] [facility], [place], [address], [employer] 03/01/2024 10:34:17 08/20/20 23 Past Data Reviewed completed BHANU Enriquez [address] [facility],[address], [place], [address], [facility] 08/19/2023 16:47:20 06/18/20 23 Past Data Reviewed completed BHANU Enriquez [address] [facility],[address], [place], [address], [facility] 06/18/2023 09:03:07 06/18/20 23 In and Out Catheterization- female completed BHANU Enriquez [address] [facility],[address], [place], [address], [facility] 06/18/2023 09:18:56 05/03/[address] colonography screening completed Not Available Health Note 06/16/2023 21:13:10 03/03/20 18 Diagnostic colonoscopy completed Not Available Health Note 06/16/2023 21:13:09 delivery completed Not Available Health Note 06/16/2023 21:13:09 Laparoscopic cholecystectomy completed Not Available Health Note 06/16/2023 21:13:10 Imaging Results None recorded. Procedure Notes None recorded. Medical Equipment None Reported. Allergies Allergen ID Allergen Name Allergen Category Reaction Reaction Severity Criticality Documentation Date Start Date Code Code System Note Provider Name and Address Organization Details Recorded Time 974750 latex environme nt,medica tion cough wheezing Not available Not available Not available 06/16/2023 31368 91 RxNorm Not Available Health Note 3 21:13:09 514973 shellfish derived food,medi cation cough wheezing Not available Not available Not available 06/16/2023 Not Available Health Note 3 21:13:09 368634 Ceclor medicatio n cough wheezing Not available Not available Not available 06/16/202387042 5 RxNorm Not Available Health Note 21:13:09 085743 penicilli n G Not available cough nausea wheezing Not available Not available Not available Not available 06/16/2023 7980 RxNorm Not Available Health Note 21:13:09 701810 Cipro medicatio n anaphylax is severe Not available 06/17/202374936 3 RxNorm Ashley Keven, PA [address] [facility],[address], [place], [address], [place] [facility] 3 13:29:10 368612 nitrofura ntoin medicatio n Not available Not available Not available 06/18/2023 7454 RxNorm BHANU Enriquez [address] [facility],[address], [place], [address], [place] [facility] 3 09:21:59 214818 adhesive environme nt,medica tion Not available Not available Not available 06/18/2023 Jaleesa agrza [facility] 3 09:33:34 773157 Medicinal product containin g aminoglyc oside and acting as antibacte rial agent (product) medicatio n Not available Not available Not available 06/18/2023 06922 7008 [facility] 09:36:06 069386 amlodipin e medicatio n Not available Not available Not available 06/18/2023 02405 [facility] 09:36:21 902634 bacitraci n medicatio n Not available Not available Not available 06/18/2023 1291 RxNorm Jaleesa garza [facility] 3 09:36:38 712522 budesonid e medicatio n Not available Not available Not available 06/18/2023 90564 RxNorm Jaleesa garza [facility] 3 09:36:49 642502 cefaclor medicatio n Not available Not available Not available 06/18/2023 2176 RxNorm Jaleesa garza [facility] 3 09:37:07 352768 ciproflox acin medicatio n Not available Not available Not available 06/18/2023 2551 RxNorm BHANU Enriquez [address] [facility],[address], [place], [address], [facility] 4 10:34:33 720327 formotero l Not available Not available Not available Not available 06/18/2023 71323 [facility] 09:37:47 995509 polymyxin B medicatio n Not available Not available Not available 06/18/2023 8536 [facility] 09:39:05 037361 triamcino lone medicatio n Not available Not available Not available 06/18/2023 88240 [facility] 09:39:25 603390 zinc oxide medicatio n Not available Not available Not available 06/18/2023 55041 RxNorm Jaleesa garza, [facility] 3 09:39:39 Medications Name Sig Start Date Stop Date Status Note LastModified by Organization Details LastModified Time carvedilo l 25 mg tablet TAKE 1 TABLET BY MOUTH TWICE DAILY. ADMINIST ER WITH A MEAL/MARIANA D active Not Available Not Available No t Available fluconazo le 150 mg tablet TAKE ONE TABLET BY MOUTH EVERY 3 DAYS FOR 2 DOSES 06/18 completed Not Available Not Available Not Available sulfameth oxazole 400 mg-trimet hoprim 80 mg tablet TAKE 1 TABLET BY MOUTH ONCE DAILY FOR 90 DAYS active Not Available Not Available No t Available lisinopri l 20 mg tablet TAKE 1 TABLET BY MOUTH ONCE DAILY active Not Available Not Available No t Available sulfameth oxazole 800 mg-trimet hoprim 160 mg tablet TAKE 1 TABLET BY MOUTH TWICE DAILY 03/01 completed Not Available Not Available Not Available ondansetr on 8 mg disintegr ating tablet DISSOLVE 1 TABLET IN MOUTH EVERY 12 HOURS NEEDED FOR NAUSEA AND VOMITING active Not Available Not Available No t Available famotidin e 20 mg tablet 20mg 1/day 03/01 completed HN: Patient reports no longer taking Not Available Not Available Not Available magnesium oxide 400 mg (241.3 mg magnesium ) tablet 400mg 1/day active Not Available Not Available No t Available doxycycli ne monohydra te 100 mg capsule 06/18 completed Not Available Not Available Not Available hydrochlo rothiazid e 25 mg tablet TAKE 1 TABLET BY MOUTH ONCE DAILY 08/20 completed HN: Patient reports no longer taking Not Available Not Available Not Available estradiol 0.01% (0.1 mg/gram) vaginal cream APPLY FINGERFU L AMOUNT (0.5 GRAMS) VAGINALL Y EVERY NIGHT FOR 7 DAYS, THEN 2-3 NIGHTS PER WEEK active Not Available Not Available No t Available ondansetr on 4 mg disintegr ating tablet 03/01 completed Not Available Not Available Not Available cefdinir 300 mg capsule TAKE 1 CAPSULE BY MOUTH TWICE DAILY BEFORE BREAKFAS T AND BEFORE SUPPER FOR 5 DAYS 06/18 completed Not Available Not Available Not Available metformin ER 500 mg tablet,ex tended release 24 hr TAKE 1 TABLET BY MOUTH TWICE DAILY active Not Available Not Available No t Available rosuvasta tin 10 mg tablet TAKE 1 TABLET BY MOUTH AT BEDTIME active Not Available Not Available No t Available aspirin 81mg 1/day active Not Available Not Available No t Available Trulicity 0.75 mg/0.5 mL subcutane ous pen injector INJECT 0.75MG (0.5ML) SUBCUTAN EOUSLY ONCE A WEEK 08/20 completed HN: Patient reports no longer taking Not Available Not Available Not Available Ozempic 1mg 1per week 03/01 completed HN: Patient reports no longer taking Not Available Not Available Not Available rosuvasta tin 10 mg sprinkle capsule 10mg 1/day 08/20 completed HN: Patient reports no longer taking Not Available Not Available Not Available aclidiniu m 400 mcg-formo terol 12 mcg/actua tion breath activatd inhaler B 12 1/day active Not Available Not Available No t Available Ozempic 1 mg/dose (4 mg/3 mL) subcutane ous pen injector INJECT 1 MG SUBCUTAN EOUSLY ONCE A WEEK active Not Available Not Available No t Available insulin glargine- yfgn (U-100) 100 unit/mL (3 mL) subcutane ous pen INJECT 30 UNITS SUBCUTAN EOUSLY AT BEDTIME DROP INSULIN BACK BY 5 UNITS EVERY 2 WEEKS LONG SUGARS REMAINED NORMAL 08/20 completed HN: Patient reports no longer taking Not Available Not Available Not Available Vitals Date Recorded Body height Body mass index (BMI) Body weight Provider Name and Address Organization Details Last Updated DateTime 06/18/2023 167.64 cm 26.6 kg/m2 77846.8300 291474 g Not Available Health Note 06/18/2023 08:56:39 Date Recorded Body height Body mass index (BMI) Body weight Provider Name and Address Organization Details Last Updated DateTime 08/20/2023 167.64 cm 26.6 kg/m2 11632.74 g Jaleesa Sun [facility] 08/20/2023 12:25:48 Date Recorded Body height Body mass index (BMI) Body weight Provider Name and Address Organization Details Last Updated DateTime 03/01/2024 167.64 cm 26.6 kg/m2 07458.74 g Jaleesa Sun [facility] 03/01/2024 10:11:33 Social History Question Answer Notes LastModified by Organizat ion Details LastModified Time Tobacco Smoking Status Former Smoker Not Available Health Note 02/26/2024 10:35:26 What Is Your Level Of Alcohol Consumption? Occasional [email or web address] Information not available 02/26/2024 What Is Your Level Of Caffeine Consumption? Moderate [email or web address] Information not available 02/26/2024 How Much Tobacco Do You Chew? None [email or web address] Information not available 02/26/2024 Are You Currently Employed? No [email or web address] Information not available 03/01/2024 Do You Or Have You Ever Used E-cigarettes Or Vape? Never Used Electronic Cigarettes [email or web address] Information not available 02/26/2024 When Did You Quit Smoking? 16+yearssinkasey hagen [email or web address] Information not available 03/01/2024 Number Of Pregnancies 2 [email or web address] Information not available 06/16/2023 Number Of Vaginal Deliveries 0 [email or web address] Information not available 06/16/2023 Number Of Caesarean Sections 2 [email or web address] Information not available 06/16/2023 Could You Be ? No [email or web address] Information not available 06/16/2023 What Was The Date Of Your Most Recent Tobacco Screening? 03/01/2024 [email or web address] Information not available 02/26/2024 Have You Ever Been Counseled For Unhealthy Alcohol Use? No Information not available 03/01/2024 What Is Your Relationship Status? [email or web address] Information not available 06/16/2023 Are You Sexually Active? Yes [email or web address] Information not available 02/26/2024 Do You Or Have You Ever Used Smokeless Tobacco? Never Used Smokeless Tobacco [email or web address] Information not available 02/26/2024 Do You Use Any Illicit Or Recreational Drugs? No [email or web address] Information not available 02/26/2024 How Many Years Have You Smoked Tobacco? 10 [email or web address] Information not available 02/26/2024 Do You Or Have You Ever Used Any Other Forms Of Tobacco Or Nicotine? No [email or web address] Information not available 03/01/2024 How Many Days In The Past Year Have You Consumed 4 Or More Drinks? 0 [email or web address] Information no t available 02/26/2024 Sex: Unknown Functional Status None recorded. Mental Status None recorded. Family History Relationship Description Onset Age of this Age Resolved Age Notes Paternal Grandmother Family history of breast cancer Paternal Grandmother Family history of malignant neoplasm Father Family history of diabetes mellitus Paternal Grandfather Family history of diabetes mellitus Maternal Grandfather Family history of cardiac disorder Mother Family history of malignant neoplasm Medical History Condition Response High Blood Pressure Y Kidney Stones N Depression N Lung Disease N GERD/Acid Reflux Y Sexually Transmitted Infection N Cancer N High Cholesterol N Diabetes Y Bleeding Disorder N Heart Disease N Gynecological History Statement/Question Response If Post Menopausal, Age at Menopause 58 Hormone Therapy N Sexually Active? N Obstetrics History GPAL:G 0 P 0 0 0 0 Immunizations Vaccine Type Date Status Provider Name and Address Organization Details Recorded Time SARS-COV-2 (COVID-19) vaccine, UNSPECIFIED 04/03/2020 completed Not Available Health Note 02/26/2024 10:35:28 zoster live 11/03/2021 completed Not Available Health Note 0 02/26/2024 10:35:28 pneumococcal, unspecified formulation 09/03/2023 completed Not Available Health Note 02/26/2024 10:35:28 influenza, unspecified formulation 08/03/[address] [facility] 03/01/2024 10:11:41 SARS-COV-2 (COVID-19) vaccine, UNSPECIFIED 05/03/2020 completed HAM [facility] 08/20/2023 12:25:53 pneumococcal, unspecified formulation 11/03/2021 completed Jaleesa Dino garza [facility] 08/20/2023 12:25:53 influenza, unspecified formulation 08/03/2022 completed Jaleesa Dino kalya [facility] 03/01/2024 10:11:41 Past Encounters Encounter ID Performer Location Encounter Start Date Encounter Closed Date Diagnosis/Indication Diagnosis SNOMED-CT Code [id number] BHANU Enriquez [address] [address] 06/18/2023 08:53:24 06/18/2023 11:09:09 Recurrent urinary tract infection [id number] Atrophic vaginitis 70125 000 Urinary tr act infectious disease [id number] BHANU Enriquez [address] [address] 08/20/2023 12:20:44 08/20/2023 13:31:35 Recurrent urinary tract infection [id number] Atrophic vaginitis 53140 000 Urinary tr act infectious disease [id number] BHANU Enriquez [address] [address] 03/01/2024 10:09:01 03/01/2024 10:48:18 Recurrent urinary tract infection [id number] Atrophic vaginitis 25461 000 Urinary tr act infectious disease [id number] Health Concerns Section Related Observation LastModified by Organization Detai ls LastModified Time None Recorded Concern Status LastModified by Organization Details LastModified Time None Recorded Advance Directives Directive None Recorded Payers Encounter Date Sequence Insurance Name Policy Number Policy Knott Covered Member ID Knott Member ID Guarantor Name 06/18/2023 1 [place] [id number] Ly Boucher [id number] Ly Boucher 08/20/2023 1 [place] [id number] Ly Boucher [id number] Ly Boucher 03/01/2024 1 [place] [id number] Ly Boucher [id number] Ly Boucher Notes Date Note Type Note Provider Name and Address Organization Details Recorded Time 06/18/2023 text/html HPI Notes: : Patient referred for evaluation of recurrent urinary tract infections (rUTIs). PMH: HTN, type2 DM (controlled) Patient had bacteremia and UTI, discharged on 03/24/23 with bactrim. Denies symptoms of an infection today, she is on bactrim - 1 tablet once daily (400mg-80mg) - since May. Reports 6 UTIs in the past few months. 1 culture proven UTIs in the past year, E.coli. Improves with antibiotics. Typical symptoms with UTI: Fever, shakes, Vomiting. No urinary symptoms. Denies history of sepsis pyelonephritis in April. Denies history of kidney stones, or gross hematuria. Patient is not sexually active. 2 children, deliveries. Denies symptomatic prolapse. Previous abdominal surgeries include: cholecystectomy, x2, ablation/D&C. Recent imaging of the urinary system: CT in April which she reports was unremarkable. Denies bowel issues (FI, IBD, IBS, etc.), regular BMs. Former smoker. Patient has tried: yogurt. fluid intake: coffee in the morning, sugar free powerade, plain water about 20 oz all through the day. She wakes up 2-3 times a night. She voids 8 times a day. She uses 0 pads per day. snowbirds to [place], she leaves sep 03 through February 2024 (DA-6):6, (IIQ-7):0 BHANU Enriquez [address] [place] [address],[address], [place], [address], [facility] 06/18/2023 10:00:38 08/20/2023 text/html HPI Notes: 08/20: Patient presents to follow up for urinary tract infections (UTIs). Reports that dues to her traveling recently, she has been taking a daily abx everyday until July Has been off of them for 3-4 weeks. Reports she will get them from [place]. Using vaginal estrogen cream, every night right now. No pain with intercourse. Taking cranberry tablets and probiotics. Reports UTI symptoms today. Symptoms of dysuria. Symptoms started today. Constipation daily, increased fiber and prunes daily. She wakes up 2 times a night. She voids 7 times a day. She uses 0 pads per day. (DA-6):2,(IIQ-7):0 06/18/23: Patient referred for evaluation of recurrent urinary tract infections (rUTIs). PMH: HTN, type2 DM (controlled) Patient had bacteremia and UTI, discharged on 03/24/23 with bactrim. Denies symptoms of an infection today, she is on bactrim - 1 tablet once daily (400mg-80mg) - since May. Reports 6 UTIs in the past few months. 1 culture proven UTIs in the past year, E.coli. Improves with antibiotics. Typical symptoms with UTI: Fever, shakes, Vomiting. No urinary symptoms. Denies history of sepsis pyelonephritis in April. Denies history of kidney stones, or gross hematuria. Patient is not sexually active. 2 children, deliveries. Denies symptomatic prolapse. Previous abdominal surgeries include: cholecystectomy, x2, ablation/D&C. Recent imaging of the urinary system: CT in April which she reports was unremarkable. Denies bowel issues (FI, IBD, IBS, etc.), regular BMs. Former smoker. Patient has tried: yogurt. fluid intake: coffee in the morning, sugar free powerade, plain water about 20 oz all through the day. She wakes up 2-3 times a night. She voids 8 times a day. She uses 0 pads per day. snowbirds to [place], she leaves sep 03 through February 2024 (DA-6):6, (IIQ-7):0 BHANU Enriquez [address] [place] [address],[address], [address], [facility] 08/20/2023 13:22:58 03/01/2024 text/html HPI Notes: : Patient presents to follow up for urinary tract infections (UTIs) Snowbirds to [place] (leaves in Sep) in the winter and primary care with [facility]. UA done friday. Her UC was negative - had mixed growth. Reports [place] Reports all were E. coli, sensitive to Bactrim. She is using vaginal estrogen cream. Cranberry tablets and drinking Cranberry juice taking probiotics. She wakes up 3 times a night. She voids 10 times a day. She uses 0 pads per day. (DA-6):5, (IIQ-7):1 08/20/23: Patient presents to follow up for urinary tract infections (UTIs). Reports that dues to her traveling recently, she has been taking a daily abx everyday until July Has been off of them for 3-4 weeks. Reports she will get them from [place]. Using vaginal estrogen cream, every night right now. No pain with intercourse. Taking cranberry tablets and probiotics. Reports UTI symptoms today. Symptoms of dysuria. Symptoms started today. Constipation daily, increased fiber and prunes daily. She wakes up 2 times a night. She voids 7 times a day. She uses 0 pads per day. (DA-6):2,(IIQ-7):0 06/18/23: Patient referred for evaluation of recurrent urinary tract infections (rUTIs). PMH: HTN, type2 DM (controlled) Patient had bacteremia and UTI, discharged on 03/24/23 with bactrim. Denies symptoms of an infection today, she is on bactrim - 1 tablet once daily (400mg-80mg) - since May. Reports 6 UTIs in the past few months. 1 culture proven UTIs in the past year, E.coli. Improves with antibiotics. Typical symptoms with UTI: Fever, shakes, Vomiting. No urinary symptoms. Denies history of sepsis pyelonephritis in April. Denies history of kidney stones, or gross hematuria. Patient is not sexually active. 2 children, deliveries. Denies symptomatic prolapse. Previous abdominal surgeries include: cholecystectomy, x2, ablation/D&C. Recent imaging of the urinary system: CT in April which she reports was unremarkable. Denies bowel issues (FI, IBD, IBS, etc.), regular BMs. Former smoker. Patient has tried: yogurt. fluid intake: coffee in the morning, sugar free powerade, plain water about 20 oz all through the day. She wakes up 2-3 times a night. She voids 8 times a day. She uses 0 pads per day. snowbirds to [place], she leaves sep 03 through February 2024 (DA-6):6, (IIQ-7):0 BHANU Enriquez [address] [place] [address],[place] [address], [place], [address], [facility] 03/01/2024 10:47:16 OBGyn Episode No OBEpisode recorded.
--- OUTSIDE RECORDS SUMMARY | 2024-06-09 11:03 | XMS_ITS | Continuity of Care Document ---
Author Organization [facility] Address [address] [place] [address] Phone Care Team Providers Care Steak Tenderizer Machine Name Role Phone Norberto Ayalaca Unavailable Unavailable [...] Office/Outpa tient Visit,Est, Mod [facility], [address], [place], [place], [id number], [place] tel:[phone] [facility] [place] Spondylolisth esis, lumbar region 7 Pelkola Fiordaliza. [facility], [address] [place] [address], [id number] , [place]. tel:[phone] Referring Provider: Galdino Gloria, [facility] [address] [place], [address]. tel:[phone] Office/Outpa tient Visit,Est, Mod [facility], [address] [place] [address], [id number], [place] tel:[phone] [facility] [place] Spondylolisth esis, lumbar regionSpinal stenosis, lumbar region 6 Pelkola Fiordaliza. [facility], [address] [place] [address] [address], [place], [place], [id number] , [place]. tel:[phone] Referring Provider: Galdino Gloria, [facility] [address] [place], [address]. tel:[phone] Office/Outpa tient Visit,Est, Mod [facility], [address] [place] [address], [id number], [place] tel:[phone] [facility] [place] Arthrodesis statusSpinal stenosis, lumbar regionSpondyl olisthesis, lumbar region 6 Tiff Michelle. [facility], [address] [place] [address], [address], [place], [place], [id number] , [place]. tel:[phone] Referring Provider: Galdino Gloria, [facility] [address] [place], [address]. tel:[phone] Office/Outpa tient Visit,Est, Mod [facility], [address], [place], [place], [id number], [place] tel:[phone] [facility] [place] OverweightEss ential (primary) hypertensionS shahzad stenosis, lumbar regionSpondyl olisthesis, lumbar regionArthrod esis status Tiff Michelle. [facility], [address] [place] [address], [address], [place], [place], [id number] , [place]. tel:[phone] Referring Provider: Galdino Gloria, [facility] [address] [place], [address]. tel:[phone] [facility], [address], [place], [id number], [place] tel:[phone] [facility] [place] Spondylolisth esis, lumbar regionSpinal stenosis, lumbar region Pelkola Fiordaliza. [facility], [address] [place] [address] [address], [place], [place], [id number] , [place]. tel:[phone] Referring Provider: Galdino Gloria, [facility] [address] [place], [address]. tel:[phone] [facility], [address], [place], [place], [id number], [place] tel:[phone] [facility] [place] OverweightSpo ndylolisthesi s, lumbar regionSpondyl olisthesis, lumbar region Tiff Michelle. [facility], [address] [place] [address], [address], [place], [place], [id number] , [place]. tel:[phone] [facility], [address] [place] [address], [id number], [place] tel:[phone] [facility] No Information 3201 5 Tiff Michelle. [facility], [address], [address], [place], [place], [id number] , [place]. tel:[phone] Referring Provider: Galdino Gloria, [facility] [address] [place], [address]. tel:[phone] Office/Outpa tient Visit,Est, Mod [facility], [address], [place], [place], [id number], [place] tel:[phone] [facility] [place] OverweightEss ential (primary) hypertensionS shahzad stenosis, lumbar regionSpondyl olisthesis, lumbar regionRadicul opathy, lumbar region Nov-0 2-201 5 Tiff Michelle. [facility], [address] [place] [address], [address], [place], [place], [id number] , [place]. tel:[phone] Referring Provider: Galdino Gloria, [facility] [address] [place], [address]. tel:[phone] Office/Outpa tient Visit,New, High [facility], [address], [place], [place], [id number], [place] tel:[phone] [facility] [place] Thoracic spondylosis with myelopathySpi nal stenosis of lumbar region with neurogenic claudicationA cquired spondylolisth esis Sep-2 3-201 5 Pelkola Fiordaliza. [facility], [address] [place] [address] [address], [place], [place], [id number] , [place]. tel:[phone] Referring Provider: Galdino Gloria, [facility] [address] [place], [address]. tel:[phone] Office consultation , low Z [facility], [address], [place], [address], [place] tel:[phone] [facility] [place] No Information 6 Tiff Michelle. [facility], [address] [place] [address], [address], [place], [place], [id number] , . tel:[phone] Referring Provider: Davin Obando, [facility] [address] [place], [address]. tel:[phone] Family History Family Member Type Diagnosis Age At Onset No Information Payers Payer name Insurance type Covered democrat ID Donnie reynaga(s) BCBS [id number] [facility] [id number] Social History Type Description Quantity Date Captured [...] No Information Instructions Date Instruction Additional Infor vanessaion Weight Management Education Rela jannette to Overweight [...]
--- OUTSIDE RECORDS SUMMARY | 2024-06-09 11:03 | XMS_ITS | Clinical Summary ---
Author Organization [employer] [facility] Address [place], [place] [address] Care Team Providers Care Lead Generator Name Role Phone Rip Reynaga MD Primary Care Provider + Allergies Active Allergy Reactions Criticality Noted Date Comments Adhesive Rash Medium 09/04/2015 Aminoglycosides Other - Describe In Comment Field 03/23/2018 Unknown, mild reaction Anesthetics - Amide Type - Select Amino Amides Rash 09/04/2015 Skin redness, topical Skin redness, topical Anesthetics - Blanca Type- Parabens Rash 09/04/2015 Skin redness Budesonide Dizziness 09/04/2015 Other reaction(s): Other (see comments) Painful skin Ciprofloxacin Hives,Edema,Anaphyla xis High 09/04/2015 Throat swelling Throat swelling Formoterol Dizziness 09/04/2015 Other reaction(s): Other (see comments) Painful skin Latex Shortness Of Breath,Rash,Dyspnea High 01/14/2013 Lidocaine Rash 09/04/2015 Skin redness Neomycin Rash 09/04/2015 Skin redness Skin redness Amlodipine Anaphylaxis High 01/14/2013 Penicillins Shortness Of Breath,Dyspnea High 01/14/2013 Bacitracin-Polymyxin B Rash 09/04/2015 Skin redness Skin redness Shellfish Containing Products Other - Describe In Comment Field,Anaphylaxis High 09/04/2015 Throat itches Throat itches Triamcinolone Rash 09/04/2015 Skin redness Zinc Oxide Hives 03/23/2018 Medications Medication Sig Dispensed Refills Start Date End Date Status glipiZIDE (GLUCOTROL) 5 mg tablet Take 1 tablet by mouth once daily before a meal. 0 01/14/2013 Active lisinopril (PRINIVIL; ZESTRIL) 40 mg tablet Take 1 tablet by mouth once daily. 0 01/14/2013 Active aspirin 81 mg tablet Take 1 tablet by mouth once daily with a meal. 0 01/14/2013 Active loratadine-pseudoep hedrine, 10-240 mg, 24 hr (CLARITIN-D 24 HOUR) 10-240 mg per tablet Take 1 tablet by mouth once daily. 0 01/14/2013 Active beclomethasone, 80 mcg each actuation, (QVAR) 80 mcg/actuation inhaler Inhale 1 Puff by mouth 2 times daily. 0 01/14/2013 Active famotidine (PEPCID) 40 mg tablet Take 1 tablet by mouth at bedtime. 0 01/14/2013 Active medication order composer Calcium and vit D3 gummie 1 daily 0 01/14/2013 Active medication order composer Glucosamine Chondroitin 1 daily 0 01/14/2013 Active INHALANT IMMUNOTHERAPYIndica tions:Allergic rhinitis, unspecified allergic rhinitis type Allergy shots for mite,mold,cat,dog, pollens-T, EISCATIEDT ALLERGY & ASTHMA 0 02/24/2015 Active metFORMIN (GLUCOPHAGE) 1,000 mg tabletIndications:T ype 2 diabetes mellitus without complication (HC) Take 1 tablet by mouth 2 times daily with meals. 09/08/2015 Hold for now until seen by primary care doctor in 1 week 0 09/08/2015 Active hydrochlorothiazide 12.5 mg capsuleIndications: Hypertension Take 1 capsule by mouth once daily. 09/08/2015 hold until seen by primary care doctor in 1 week 1 09/08/2015 Active oxyCODONE (ROXICODONE) 5 mg immediate release tabletIndications:S shahzad stenosis of lumbar region Take 1-2 tablets by mouth every 4 hours if needed for Pain (For moderate pain). 120 tablet 09/08/2015 Active diazepam (VALIUM) 2 mg tabletIndications:S shahzad stenosis of lumbar region Take 1 tablet by mouth every 4 hours if needed for muscle spasm. 40 tablet 09/08/2015 Active sennosides-docusate , 8.6-50 mg, (SENOKOT S) 8.6-50 mg tabletIndications:S shahzad stenosis of lumbar region,Constipation due to pain medication Take 1-4 tablets by mouth 2 times daily. 100 tablet 09/08/2015 Active WalkerIndications:S shahzad stenosis of lumbar region 2 Wheeled Walker for home use. 1 Device 0 09/08/2015 Active gabapentin (NEURONTIN) 100 mg capsuleIndications: Spinal stenosis of lumbar region Take 1 capsule by mouth 2 times daily. 60 capsule 1 09/08/2015 Active albuterol (PROVENTIL) 0.083 % neb solution 12/19/2017 Active aspirin-calcium carbonate 81 mg-300 mg calcium(777 mg) tab Take 81 mg by mouth. 01/14/2013 Active insulin glargine (LANTUS SOLOSTAR U-100 INSULIN) 100 unit/mL (3 mL) pen Inject 15 Units subcutaneous. 01/29/2018 Active beclomethasone, 80 mcg each actuation, (QVAR) 80 mcg/actuation inhaler Inhale 1 Puff by mouth. 01/14/2013 Active famotidine (PEPCID) 40 mg tablet Take 40 mg by mouth. 01/14/2013 Active glipiZIDE extended-release (GLUCOTROL XL) 5 mg Extended-Release tablet 03/02/2018 Active hydroCHLOROthiazide (HCTZ) 25 mg tablet 01/16/2018 Activ e lisinopril (PRINIVIL; ZESTRIL) 20 mg tablet 12/25/2017 Active loratadine-pseudoep hedrine, 10-240 mg, 24 hr (CLARITIN-D 24 HOUR) 10-240 mg per tablet Take 1 tablet by mouth. 01/14/2013 Active metFORMIN (GLUCOPHAGE) 1,000 mg tablet 2 (two) times a day with meals. 03/02/2018 Active nitrofurantoin macrocrystals/monoh ydrate (MACROBID) 100 mg capsule Take 100 mg by mouth 2 times daily. 0 06/17/2018 Active Active Problems Problem Noted Date Diagnosed Date Environmental allergies 06/15/2013 Overview: Latex, animals, plants Hypertension 06/15/2013 Type 2 diabetes mellitus 06/15/2013 Asthma, moderate persistent 06/15/2013 Gastric reflux 06/15/2013 Spinal stenosis 06/15/2013 Overview: L4-L5 L3-5 decompression 09/05/2015 Immunizations Name Administration Dates Next Due Influenza, IIV3 (Age >=3 years) 07/22/2013 Influenza, IIV4 07/19/2015 Family History Medical History Relation Name Comments Diabetes Father Stroke Father Heart Disease Maternal Grandmother Cancer Mother lung- age 33, s moker Diabetes Paternal Aunt Diabetes Paternal Grandfather Cancer-breast Paternal Grandmother Diabetes Paternal Uncle Relation Name Status Comments Father Maternal Grandmother Mother Paternal Aunt Paternal Grandfather Paternal Grandmother Paternal Uncle Social History Tobacco Use Types Packs/Day Years Used Date Smoking Tobacco: Never Smokeless Tobacco: Never Alcohol Use Standard Drinks/Week Comments No 0 (1 standard drink = 0.6 oz pur e alcohol) occ. Sex and Gender Information Value Date Recorded Sex Assigned at Not on file Gender Identity Not on file Sexual Orientation Not on file Obstetrics History Last Filed Vital Signs Vital Sign Reading Time Taken Comments Blood Pressure 195/97 05/18/2020 2:41 PM CDT Pulse 96 05/18/2020 2:41 PM CDT Temperature 37.2 ??C (98.9 ??F) 06/21/2018 8:07 PM CD T Respiratory Rate 16 05/18/2020 2:41 PM CDT Oxygen Saturation 98% 05/18/2020 2:41 PM CDT Inhaled Oxygen Concentration - - Weight 90.7 kg (200 lb) 05/18/2020 2:41 PM CDT Height 167.6 cm (5' 6) 05/18/2020 2:41 PM CDT Body Mass Index 32.28 05/18/2020 2:41 PM CDT Plan of Treatment Health Maintenance Due Date Last Done Comments Tdap 1969 Depression screening for age 12+ 1970 BMI (ht and wt on same day) for age 18+ 1976 Hepatitis C screening for age 18-79 1976 Lipids for age 45-75 2003 Zoster (shingles) series for age 50+ (1 of 2) 2008 Mammogram for age 45-75 07/04/2013 07/04/20 12 (Completed outside of [facility]) Colonoscopy through age 75 07/04/201807/04 (Completed outside of [facility]) Tetanus booster 09/28/2018 09/28/2008 (Comp leted outside of [facility]) DEXA/DXA scan for age 65+ 2023 Pneumococcal series for age 65+ (1 of 1 - PCV) 2023 COVID-19 vaccine series ( season) 2023 Influenza for age 65+ 07/04/2024 07/19/2015, 013 Medical Devices Implanted Type Area Photoresist Printer Device Identifier Shelf Expiration Date Model / Serial / Lot Dura 1x1in Duragen Plus Non-[place]cl[place]on - [id number] Implanted:Qty: 1 on 09/05/2015 by Miguel Angel Matthew MD at [facility] N/A: Spine Integra [employer] Nathaniel [id number] / / [id number] Screw Lmbr Post 6.5x45mm Tsrh 3dx Og Thin Va - [id number] Implanted:Qty: 4 on 09/05/2015 by Miguel Angel Matthew MD at [facility] N/A: Spine Medtronic Spine/Ortho [id number] / / Herman Lmbr 35x5.5mm Tsrh 3d Cvd Titnm - [id number] Implanted:Qty: 2 on 09/05/2015 by Miguel Angel Matthew MD at [facility] N/A: Spine [employer]onic Spine/Ortho [id number] / / Cnnctr Lmbr Sm 5.5mm Tsrh 3dx Titnm - [id number] Implanted:Qty: 4 on 09/05/2015 by Miguel Angel Matthew MD at [facility] N/A: Spine [employer] Spine/Ortho [id number] / / Advance Directives * Full Code (Latest Code Status on File) Date Activated Date Inactivated Comments 09/05/2015 7:27 PM 09/08/2015 3:20 PM * Full Code Date Activated Date Inactivated Comments 09/05/2015 10:40 AM 09/05/2015 7:27 PM Question Answer Comments Code Status Discussion: Discussed Care Teams Lead Generator Relationship Specialty Start Date End Date Rip Reynaga MD [address] [place] [address] PCP - General Family Practice 05/18/20
--- OUTSIDE RECORDS SUMMARY | 2024-06-09 11:03 | XMS_ITS | Clinical Summary ---
Author Organization [facility] Address [address] [place] [address] Care Team Providers Care Experience Designer Name Role Phone Elsewhere, Pcp Primary Care Provider Unavailabl e Source Comments Patient records contain information from all sites at [facility]. For routine questions regarding patient records, call [phone] during business hours, M-F 8:00 AM - 5:00 PM Central Time. Record requests for emergency care only can be directed to [phone] at any time.[facility] Allergies Active Allergy Reactions Criticality Noted Date [...] 07/22/2013 Influenza Whole 08/17/2009 Influenza, Injectable, Quadrivalent 10/04/2022,08/22/2021,07/11/2020,2015,08/02/2016,07/22/2013,07/18/2012,1 ,07/20/2009 Influenza, Seasonal, Injectable 07/22/2013,07/18,07/20/2009 PPSV23 08/18/2006 RZV (SHINGRIX) 04/28/2019,02/18/2019 Rabies (Rabavert) 06/13/2010,06/06/2010 Rabies, intramuscular, historical 06/13/2010,02/2010 Td (Adult), adsorbed 04/14/2020 Tdap 09/28/2008 influenza vaccine QV(FLUBLOK ) (18 years or older) (PF) 08/08/2022,08/22/2021,07/11/2020 influenza vaccine quad (FLUZONE/FLUARIX) (6 months and older)(PF) 08/05/2019,07/31/2018,07/31/2017,2014,09/26/2009 Family History Medical History Relation Name Comments Basal cell carcinoma Brother Coronary artery disease Father Randall ADD Mother Angela Lung cancer Mother Angela Obesity Mother Angela Breast cancer Paternal Grandmother Marychuy Coronary artery disease Sister May ADD Son Santo Relation Name Status Comments Brother Father Randall Mother Angela Paternal Grandmother Marychuy Sister May Son Santo Social History Tobacco Use Types Packs/Day Years [...] your living situation today? [facility] a [facility] place to live 04/22/2023 Sex and Gender [...] CDT Office Visit Department of Dermatology in [address] [id number] Mikhail Delgado M.D. [address] [place] [phone] Discharge Disposition: Home or Self Care Health Maintenance Due Date Last Done Comments Bone Density Scan (Osteoporo sis Screen) 1958 CT Colonography 1958 Cologuard 1958 Diabetic Office Visit with F oot Exam 1958 Dilated Eye Exam 1958 FIT 1958 Hepatitis C Screening 1960 Mammogram 1958 Urine Albumin 1958 Colonoscopy 09/14/2018 09/14/2008 Colorectal Cancer Screening 09/14/2018 COVID-19 Vaccine (2022- 4 season) 2023 02/16/2021, 01/19/2021 Hemoglobin A1C 08/26/2023 02/24/2023 Depression Screening (Annual PHQ-2) 11/03/2023 Fall Risk Screen (Annual) 11/03/2023 Creatinine Level (Kidney Fun ction Test) 03/24/2024 03/24/2023, 03/23/2023, 03/22/2023, Additional history exists Potassium Level 03/24/2024 03/24/2023, 03/04, 03/22/2023, Additional history exists Sodium Level 03/24/2024 03/24/2023, 03/04, 03/22/2023, Additional history exists Office Visit for Blood Press ure Check / Re-check 04/23/2024 04/23/2023 Influenza Vaccine (#1) 2024 , 08/08/2022, 08/08/2022, Additional history exists Pneumococcal vaccine (65+ ye ars) (3 of 3 - PPSV23 or PCV20) 08/05/2024 08/05/2023, 08/18/2006 Lipid (Cholesterol) Screening 04/23/2028 04/23/2023, 02/24/2023 DTaP,Tdap,and Td Vaccines (3 - Td or Tdap) 04/14/2030 04/14/2020, 09/28/2008 Hepatitis B Vaccines Completed 01/04/2002, 11/10/2000, 08/13/2000 Zoster Vaccines Completed 04/28/2019, 02/18/2019 Medical Devices Implanted Type Area Offset Machine Operator Device Identifier Shelf Expiration Date Model / [...] Triglycerides 203(H) mg/dL 04/23/2023 9:46 AM CDT CN[facility] Comment: ----REFERENCE VALUE---- Normal: <150 mg/dL Borderline High: 150-199 mg/dL High: 200-499 mg/dL Very High: > or =500 mg/dL Cholesterol, Total 154 mg/dL 2022 9:46 AM CDT CNFL Comment: ----REFERENCE VALUE---- Desirable: < 200 mg/dL [...] M.D. LAB BLOOD ADD-ON Performing Organization Address City/State/[facility] Co de Phone Number [facility] [address] [place] [address], [facility] in [address] [address] * (ABNORMAL) Basic Metabolic Panel (03/24/2023 6:49 [...] CDT Chanel Kinsey M.D. LAB BLOOD ADD-ON [facility] [address] [place] [address], [facility] CNFL [facility] in [address] [address] * (ABNORMAL) Hemoglobin A1c (02/24/2023 3:40 AM CDT) Hemoglobin A1c, B 5.9(H) 4.0 - 5.6 % 02/24/2023 4:27 AM CDT DTL Comment: Hemoglobin A1c values of 5.7-6.4 percent indicate an increased risk for developing diabetes mellitus. In diabetic patients, HbA1c goals should be discussed with healthcare provider. Blood (Blood, Venous) 02/24/2023 3:40 AM CDT 02/24/2023 3:58 AM CDT Lori Anderson APRN CSuellenNSuellenPSuellen LAB BLOOD ADD-ON [facility] [address] [place] [address], [place] DTL [facility] [address] [place] [address] from Last 3 Months or Most Recently Relevant to Health Maintenance Advance Directives For more information, please contact: [phone] * Full Code (Latest Code Status on File) Date Activated Date Inactivated Comments 03/22/2023 10:39 PM 03/24/2023 1:12 PM Question Answer Comments Full Code: Not Discussed Due to: Patient not available * Full Code Date Activated Date Inactivated Comments 02/23/2023 8:26 PM 02/24/2023 8:04 PM Question Answer Comments Full Code: Discussed Care Teams Experience Designer Relationship Specialty Start Date End Date Elsewhere, Pcp PCP - General Internal Medicine 02/23/23
--- OUTSIDE RECORDS SUMMARY | 2024-06-09 11:03 | XMS_ITS ---
Author Organization [facility] Address [address] [place] [address] Care Team Providers Care Commodities Broker Name Role Phone Unavailable Unavailable Unavailable Surgery Details Not on file Complications Check Surgery Details section. Procedure Estimated Blood Loss Check Surgery Details section. Procedure Findings Check Surgery Details section. Procedure Specimens Taken Check Surgery Details section.
== END 2024-06-09 10:59 | disposition home or self-care (01) ==
PROVIDERS: PCP Family Medicine; Visit Provider Family Medicine
DX: E11.9 Type 2 diabetes mellitus without complications (principal); I10 Essential (primary) hypertension; N39.0 Urinary tract infection, site not specified
CPT/HCPCS: 80048; 82043; 82570; 87086; 87186

== ENCOUNTER 2024-06-22 17:26 | Outpatient (CLI) | payer MEDICARE, SELFPAY ==
--- OUTSIDE RECORDS SUMMARY | 2024-06-22 17:31 | XMS_ITS | Clinical Summary ---
Author Organization [facility] Address [address] [place] [address] Care Team Providers Care Payroll Auditor Name Role Phone Elsewhere, Pcp Primary Care Provider Unavailabl e Source Comments Patient records contain information from all sites at [facility]. For routine questions regarding patient records, call [phone] during business hours, M-F 8:00 AM - 5:00 PM Central Time. Record requests for emergency care only can be directed to [phone] at any time.[facility] Allergies Active Allergy Reactions Criticality Noted Date [...] 02/23/2023 Overview (02/23/2023): L4-L5 L3-5 decompression 09/05/2015 Encounters Date Type Department Care Team Description 06/22/2024 2:35 PM CDT Ancillary Procedure Department of Dermatology Arrived 06/22/2024 2:00 PM CDT Office Visit Department of Dermatology in [address] [phone] Mikhail Delgado M.D. Keratosis Actinic (Primary Dx); Nevi Multiple; Keratosis Seborrheic Discharge Disposition: Home or Self Care from Last 3 Months Immunizations Name Administration Dates Next Due H1N1 [...] Obesity Mother Angela Breast cancer Paternal Grandmother Perrin Coronary artery disease Sister May ADD Son Santo Relation Name Status Comments Brother Father Randall Mother Angela Paternal Grandmother Perrin Sister May Son Santo Social History Tobacco [...] your living situation today? I have a [facility] place to live 04/22/2023 Sex and [...] 03/22/2023 10:08 PM CDT Plan of Treatment Health Maintenance [...] 04/23/2024 04/23/2023 Influenza Vaccine (#1) 2024 , 08/03/2023, 08/08/2022, Additional history exists Pneumococcal vaccine (65+ ye ars) (3 of 3 - PPSV23 or PCV20) 09/03/2024 09/03/2023, 08/05/2023, 11/03/2021, Additional history exists Lipid (Cholesterol) Screening 04/23/2028 04/23/2023, 02/24/2023 DTaP,Tdap,and Td Vaccines (3 - Td or Tdap) 04/14/2030 04/14/2020, 09/28/2008 Hepatitis B Vaccines Completed 01/04/2002, 11/10/2000, 08/13/2000 Zoster Vaccines Completed 11/03/2021, 04/04, 02/18/2019 Medical Devices Implanted Type Area Quarter Inspector Device Identifier Shelf Expiration Date Model / Serial / Lot Spine Implant Spine Implant Spine Lumbar Procedures Procedure Name Priority Date/Time Associated Diagnosis Comments DERMATOLOGY IMAGE EXAM Routine 06/22/2024 2:34 PM CDT LIPID PANEL, S Routine 04/23/2023 9:24 AM CDT Non-ST Elevation Myocardial Infarction (HCC) Tachycardia Supraventricular (HCC) Diabetes Mellitus Type 2 (HCC) Hypertension Essential Primary BASIC METABOLIC PANEL, S/P Routine 03/24/2023 6:49 AM CDT HEMOGLOBIN A1C, B Routine 02/24/2023 3:4 0 AM CDT from Last 3 Months or Most Recently Relevant to Health Maintenance Results * Breast, right 208 210 204 206 214 212-Dermatology Image Exam (06/22/2024 2:34 PM CDT) 06/22/2024 2:32 PM CDT Narrative IIMS - 06/22/2024 2:34 PM CDT This order has been created and auto-finalized to support the import of images acquired without order. The clinical documentation to support these images can be found on the encounter that produced images. Provider Not In System IMG NON RAD IMAGI NG PROCEDURES [facility] NA * (ABNORMAL) Lipid Panel (04/23/2023 9:24 AM [...] CDT Bob Alvarado M.D. LAB BLOOD ADD-ON [facility] [address] [place] [address], [facility] CNFL [facility] in [address] [address] * (ABNORMAL) Basic Metabolic Panel (03/24/2023 6:49 [...] AM CDT 03/24/2023 6:55 AM CDT Chanel Kinesy M.D. LAB BLOOD ADD-ON [facility] [address] [place] [address], [place] CNFL [facility] in [address] [address] * (ABNORMAL) Hemoglobin A1c (02/24/2023 3:40 AM CDT) Hemoglobin A1c, B 5.9(H) 4.0 - 5.6 % 02/24/2023 4:27 AM CDT DTL Comment: Hemoglobin A1c values of 5.7-6.4 percent indicate an increased risk for developing diabetes mellitus. In diabetic patients, HbA1c goals should be discussed with healthcare provider. Blood (Blood, Venous) 02/24/2023 3:40 AM CDT 02/24/2023 3:58 AM CDT Rodrigo Recinos APRNNSamir. LAB BLOOD ADD-ON [facility] [address] [place] [address], [place] DTL [facility] [address] [place] [address] from Last 3 Months or Most Recently Relevant to Health Maintenance Advance Directives For more information, please contact: [phone] * Full Code (Latest Code Status on File) Date Activated Date Inactivated Comments 03/22/2023 10:39 PM 03/24/2023 1:12 PM Question Answer Comments Full Code: Not Discussed Due to: Patient not available * Full Code Date Activated Date Inactivated Comments 02/23/2023 8:26 PM 02/24/2023 8:04 PM Question Answer Comments Full Code: Discussed Care Teams Payroll Auditor Relationship Specialty Start Date End Date Elsewhere, Pcp PCP - General Internal Medicine 02/23/23
--- OUTSIDE RECORDS SUMMARY | 2024-06-22 17:31 | XMS_ITS | Continuity of Care Document ---
Author Organization [facility] Address [address] [place] [address] Phone Care Team Providers Care Cattle Examiner Name Role Phone Norberto Ayalaca Unavailable Unavailable [...] tient Visit,Est, Mod [facility], [address], [place], [place], [id number], [place] tel:[phone] [facility] [place] Spondylolisth esis, lumbar region 7 Pelkola Fiordaliza. [facility] [place], [address] [place] [address], [id number] , [place]. tel:[phone] Referring Provider: Galdino Gloria, [facility] [address] [place], [address]. tel:[phone] Office/Outpa tient Visit,Est, Mod [facility], [address] [place] [address], [id number], [place] tel:[phone] [facility] [place] Spondylolisth esis, lumbar regionSpinal stenosis, lumbar region 6 Pelkola Fiordaliza. [facility], [address] [place] [address], [place], [place], [id number] , [place]. tel:[phone] Referring Provider: Galdino Gloria, [facility] [address] [place], [address]. tel:[phone] Office/Outpa tient Visit,Est, Mod [facility], [address] [place] [address], [id number], [place] tel:[phone] [facility] [place] Arthrodesis statusSpinal stenosis, lumbar regionSpondyl olisthesis, lumbar region 6 Tiff Michelle. [facility], [address] [place] [address], [address], [place], [place], [id number] , [place]. tel:[phone] Referring Provider: Galdino Gloria, [facility] [address] [place], [address]. tel:[phone] Office/Outpa tient Visit,Est, Mod [facility], [address], [place], [place], [id number], [place] tel:[phone] [facility] [place] OverweightEss ential (primary) hypertensionS shahzad stenosis, lumbar regionSpondyl olisthesis, lumbar regionArthrod esis status Tiff Michelle. [facility], [address] [place] [address], [address], [place], [place], [id number] , [place]. tel:[phone] Referring Provider: Galdino Gloria, [facility] [address] [place], [address]. tel:[phone] [facility], [address], [place], [id number], [place] tel:[phone] [facility] [place] Spondylolisth esis, lumbar regionSpinal stenosis, lumbar region Pelkola Fiordaliza. [facility], [address] [place] [address] [address], [place], [place], [id number] , [place]. tel:[phone] Referring Provider: Galdino Gloria, [facility] [address] [place], [address]. tel:[phone] [facility], [address], [place], [place], [id number], [place] tel:[phone] [facility] [place] OverweightSpo ndylolisthesi s, lumbar regionSpondyl olisthesis, lumbar region Tiff Michelle. [facility], [address] [place] [address], [address], [place], [place], [id number] , [place]. tel:[phone] [facility], [address] [place] [address], [id number], [place] tel:[phone] [facility] No Information 3[address] Tiff Michelle. [facility], [address], [address], [place], [place], [id number] , [place]. tel:[phone] Referring Provider: Galdino Gloria, [facility] [address] [place], [address]. tel:[phone] Office/Outpa tient Visit,Est, Mod [facility], [address], [place], [place], [id number], [place] tel:[phone] [facility] [place] OverweightEss ential (primary) hypertensionS shahzad stenosis, lumbar regionSpondyl olisthesis, lumbar regionRadicul opathy, lumbar region Nov-0 2-201 5 Tiff Michelle. [facility], [address] [place] [address], [address], [place], [place], [id number] , [place]. tel:[phone] Referring Provider: Galdino Gloria, [facility] [address] [place], [address]. tel:[phone] Office/Outpa tient Visit,New, High [facility], [address], [place], [place], [id number], [place] tel:[phone] [facility] Thoracic spondylosis with myelopathySpi nal stenosis of lumbar region with neurogenic claudicationA cquired spondylolisth esis Sep-2 3-201 5 Pelkola Fiordaliza. [facility], [address] [place] [address] [address], [place], [place], [id number] , [place]. tel:[phone] Referring Provider: Galdino Gloria, [facility] [address] [place], [address]. tel:[phone] Office consultation , low Z [facility], [address], [place], [address], [place] tel:[phone] [facility] No Information 6 Tiff Michelle. [facility], [address] [place] [address], [address], [place], [place], [id number] , . tel:[phone] Referring Provider: Davin Obando, [facility] [address] [place], [address]. tel:[phone] Family History Family Member Type Diagnosis Age At Onset No Information Payers Payer name Insurance type Covered alliance party ID Donnie reynaga(s) BCBS [id number] [facility] [id number] Social History Type Description Quantity Date Captured [...]
--- OUTSIDE RECORDS SUMMARY | 2024-06-22 17:32 | XMS_ITS | Referral Summary ---
Author Organization [facility] Address [address] [place] [address] Care Team Providers Care Relief Salesperson Name Role Phone Elsewhere, Pcp Primary Care Provider Unavailabl e Source Comments Patient records contain information from all sites at [facility]. For routine questions regarding patient records, call [phone] during business hours, M-F 8:00 AM - 5:00 PM Central Time. Record requests for emergency care only can be directed to [phone] at any time.[facility] Encounters Date Type Department Care Team Description 06/22/2024 2:35 PM CDT Ancillary Procedure Department of Dermatology Arrived 06/22/2024 2:00 PM CDT Office Visit Department of Dermatology in [address] [phone] Mikhail Delgado M.D. Keratosis Actinic (Primary Dx); Nevi Multiple; Keratosis Seborrheic Discharge Disposition: Home or Self Care from Last 3 Months Allergies Active Allergy Reactions Criticality Noted Date [...] your living situation today? I have a [facility] place to live 04/22/2023 Sex and [...] 03/22/2023 10:08 PM CDT Plan of Treatment Not on file Medical Devices Implanted Type Area Bookstore Manager Device Identifier Shelf Expiration Date Model [...] System IMG NON RAD IMAGI NG PROCEDURES [facility] NA * (ABNORMAL) Lipid Panel (04/23/2023 9:24 [...] CDT Bob Alvarado M.D. LAB BLOOD ADD-ON [facility] [address] [place] [address], [facility] CNFL [facility] in [address] [address] * (ABNORMAL) Basic Metabolic Panel (03/24/2023 6:49 [...] CDT Chanel Kinsey M.D. LAB BLOOD ADD-ON [facility] [address] [place] [address], [facility] CNFL [facility] in [address] [address] * (ABNORMAL) Hemoglobin A1c (02/24/2023 3:40 AM [...] Lori Anderson APRN, C.N.P. LAB BLOOD ADD-ON [facility] [address] [place] [address], [place] [facility] [address] [place] [address] from Last 3 Months or Most Recently Relevant to Health Maintenance Advance Directives For more information, please contact: [phone] * Full Code (Latest Code Status on File) Date Activated Date Inactivated Comments 03/22/2023 10:39 PM 03/24/2023 1:12 PM Question Answer Comments Full Code: Not Discussed Due to: Patient not available * Full Code Date Activated Date Inactivated Comments 02/23/2023 8:26 PM 02/24/2023 8:04 PM Question Answer Comments Full Code: Discussed Care Teams Relief Salesperson Relationship Specialty Start Date End Date Elsewhere, Pcp PCP - General Internal Medicine 02/23/23
--- OUTSIDE RECORDS SUMMARY | 2024-06-22 17:32 | XMS_ITS | Clinical Summary ---
Author Organization [facility] Address [place], [place] [address] Care Team Providers Care Fruit And Vegetable Factory Worker Name Role Phone Rip Reynaga MD Primary [...] 45-75 07/04/2013 07/04/20 12 (Completed outside of [facility]) Colonoscopy through age 75 07/04/201807/04 (Completed outside of [facility]) Tetanus booster 09/28/2018 09/28/2008 (Comp leted outside of [facility]) DEXA/DXA scan for age 65+ 2023 Pneumococcal series for age 65+ (1 of 1 - PCV) 2023 COVID-19 vaccine series ( season) 2023 Influenza for age 65+ 07/04/2024 07/19/2015, 013 Medical Devices Implanted Type Area Integrity Assessor Device Identifier Shelf Expiration Date Model / Serial / Lot Dura 1x1in Duragen Plus Non-Mcclendon - [id number] Implanted:Qty: 1 on 09/05/2015 by Miguel Angel Matthew MD at [facility] N/A: Spine Integra [employer]rin[employer] Nathaniel [id number]# / / [id number] Screw Lmbr Post 6.5x45mm Tsrh 3dx Og Thin Va - [id number] Implanted:Qty: 4 on 09/05/2015 by Miguel Angel Matthew MD at [facility] N/A: Spine Medtronic Spine/Ortho [id number] / / Herman Lmbr 35x5.5mm Tsrh 3d Cvd Titnm - [id number] Implanted:Qty: 2 on 09/05/2015 by Miguel Angel Matthew MD at [facility] N/A: Spine Medtronic Spine/Ortho [id number] / / Cnnctr Lmbr Sm 5.5mm Tsrh 3dx Titnm - [id number] Implanted:Qty: 4 on 09/05/2015 by Miguel Angel Matthew MD at [facility] N/A: Spine Medtronic Spine/Ortho [id number] / / Advance Directives * Full Code (Latest Code Status on File) Date Activated Date Inactivated Comments 09/05/2015 7:27 PM 09/08/2015 3:20 PM * Full Code Date Activated Date Inactivated Comments 09/05/2015 10:40 AM 09/05/2015 7:27 PM Question Answer Comments Code Status Discussion: Discussed Care Teams Fruit And Vegetable Factory Worker Relationship Specialty Start Date End Date Rip Reynaga MD [address] [facility] [place] [address] PCP - General Family Practice 05/18/20
--- OUTSIDE RECORDS SUMMARY | 2024-06-22 17:32 | XMS_ITS ---
Author Organization [facility] Address [address] [place] [address] Care Team Providers Care Spaghetti Press Helper Name Role Phone Unavailable Unavailable Unavailable Surgery Details Not on file Complications Check Surgery Details section. Procedure Estimated Blood Loss Check Surgery Details section. Procedure Findings Check Surgery Details section. Procedure Specimens Taken Check Surgery Details section.
--- OUTSIDE RECORDS SUMMARY | 2024-06-22 17:32 | XMS_ITS | Encounter Summary ---
Author Organization [facility] Address [address] [place] [id number] Care Team Providers Care Autobody Technician Name Role Phone Elsewhere, Pcp Primary Care Provider Unavailabl e Reason for Visit * Reason Comments Skin Check * Appointment Request (Routine) - Closed Specialty Diagnoses / Procedures Referred By Cindy t Referred To Contact Dermatology Referral ID Status Reason Start Date Expiration Date Visits Re quested Visits Authorized [id number] Closed 01/02/2024 01/01/2025 1 1 Encounter Details Date Type Department Care Team (Late st Contact Info) Description 06/22/2024 2:00 PM CDT Office Visit Department of Dermatology in [address] [phone] Mikhail Delgado M.D. [address] [place] [id number] Keratosis Actinic (Primary Dx); Nevi Multiple; Keratosis Seborrheic Discharge Disposition: Home or Self Care Social History Tobacco Use Types Packs/Day Years Used Date Smoking Tobacco: Former Cigarettes 2.5 11.4 0 11/03/1972 - 03/23/1984 Smokeless Tobacco: Never Alcohol Use Standard Drinks/Week Comments Yes 2 [...] your living situation today? I have a [facility] place to live 04/22/2023 Sex and Gender Information Value Date Recorded Sex Assigned at Female 04/22/2023 2:51 PM CDT Gender Identity Female 04/22/2023 2:51 PM CDT Sexual Orientation Straight 04/22/2023 2: 51 PM CDT documented as of this encounter Progress Notes * Mikhail Delgado M.D. - 06/22/2024 2:00 PM CDT SUBJECTIVE CHIEF COMPLAINT / REASON FOR VISIT Full skin cancer screening HISTORY OF PRESENT ILLNESS Ly Boucher is a pleasant 64 y.o. female who presents for a full skin cancer screening. The patient was last seen by me in Dermatology clinic on 05/27/24. She denies a personal history of skin cancer or family history for melanoma. She has had nevi removed in the past which reportedly came back as moderately atypical. She uses sunscreen. She would particularly like us to evaluate a lesion invol ving the left proctor as well as a lesion involving the nose today. She states the lesion involving the nose has been rough and used to cover it with make-up but feels she can not cover it as well now. MEDICAL HISTORY Negative for skin cancer Diabetes mellitus, does not require insulin FAMILY HISTORY Negative for melanoma OBJECTIVE PHYSICAL EXAMINATION General: Awake, alert, in no acute distress, and with appropriate affect. Eyes: No scleral injection or icterus. No eyelid abnormalities. Lymph: No lower extremity edema. Skin: I have examined the scalp, face, neck, chest, abdomen, back, bilateral upper extremities, andbilateral lower extremities. My scribe (Dejah) served as a contract administration coordinator for the entirety of the exam. Examination of the face, trunk and extremities reveals multiple benign-appearing nevi, lentigines and seborrheic keratoses. Examination of the nose reveals actinic keratosis x 4. Examination of the left mid proctor reveals a light-brown slightly scaly macule compatible with a seborrheic keratosis. Examination of the right upper breast reveals a 2.5 x 2.5 mm brown nevus with minimal asymmetry. ASSESSMENT / PLAN #1 Nose: Actinic keratosis x 4 Given the precancerous nature of this lesion(s), treatment is medically indicated. After discussionof the risks, benefits and alternatives to treatment with cryotherapy, informed consent was obtained. We treated a total of four lesion(s) with two 5-10-second freeze-thaw cycles of liquid nitrogen cr yotherapy. The patient tolerated the procedure well. Aftercare instructions were provided in written and verbal form to the patient. Should any of these lesions recur, the patient should return for biopsy or further evaluation. Follow up in 1-2 months for recheck if these areas do not complete resolve. #2 Face, trunk and extremities: Multiple nevi and lentigines The ABCDE criteria for melanoma was reviewed with the patient. None of the patient's nevi reach theclinical threshold for biopsy. I recommend continued sun protection, self-skin examinations, and observation. Should any of the patient's nevi change in size, color, texture, or shape or develop symptoms such as itching or bleeding, I recommend an immediate return visit for reassessment. Particularly, we will continue to clinically monitor the lesion(s) involving the right upper breast. Photographs taken today by Dayana MOSER with verbal patient consent. Follow up in 6 months for a recheck of the stated lesion(s). #3 Face, trunk and extremities: Seborrheic keratosis The benign nature of the skin lesion(s) was discussed with the patient. No treatment is required. Irecommend continued observation. Should this lesion change in size, color, texture, or shape or develop symptoms such as itching or bleeding, I recommend an immediate return visit for reassessment. PATIENT EDUCATION: Ready to learn. No apparent learning barriers were identified. Learning preferences include listening. Explained diagnosis and treatment plan; patient/guardian of patient expressed understanding of the content. By signing my name below, IDejah, attest that this documentation has been prepared underthe direction and in the presence of Mikhail Delgado M.D. Electronically Signed: branden White. 06/22/2024. 2:20 PM CDT. Mikhail Son M.D., personally performed the services described in this documentation. All medical record entries made by the scribe were at my direction and in my presence. I have reviewed the chart and discharge instructions (if applicable) and agree that the record reflects my personal performance and is accurate and complete. Mikhail Delgado M.D. Scribed for Mikhail Delgado M.D. by Dejah Pearce, on 06/22/2024, 2:30 PM CDT. documented in this encounter Plan of Treatment Not on file documented as of this encounter Visit Diagnoses Diagnosis Keratosis Actinic- Primary Nevi Multiple Keratosis Seborrheic documented in this encounter Care Teams Autobody Technician Relationship Specialty Start Date End Date Elsewhere, Pcp PCP - General Internal Medicine 02/23/23 documented as of this encounter
--- OUTSIDE RECORDS SUMMARY | 2024-06-22 17:32 | XMS_ITS | Encounter Summary ---
Author Organization [facility] Address [address] [place] [address] Care Team Providers Care Printed Circuit Board Assembler Name Role Phone Elsewhere, Pcp Primary Care Provider Unavailabl e Encounter Details Date Type Department Care Team (Late st Contact Info) Description 06/22/2024 2:35 PM CDT Ancillary Procedure Department of Dermatology Arrived Social History Tobacco Use Types Packs/Day Years [...] your living situation today? I have a [facility] place to live 04/22/2023 Sex and Gender Information Value Date Recorded Sex Assigned at Female 04/22/2023 2:51 PM CDT Gender Identity Female 04/22/2023 2:51 PM CDT Sexual Orientation Straight 04/22/2023 2: 51 PM CDT documented as of this encounter Plan of Treatment Not on file documented as of this encounter Procedures Procedure Name Priority Date/Time Associated Diagnosis Comments DERMATOLOGY IMAGE EXAM Routine 06/22/2024 2:34 PM CDT documented in this encounter Results * Breast, right 208 210 204 [...] NON RAD IMAGI NG PROCEDURES IIMS NA documented in this encounter Visit Diagnoses Not on filedocumented in this encounter Care Teams Printed Circuit Board Assembler Relationship Specialty Start Date End Date Elsewhere, Pcp PCP - General Internal Medicine 02/23/23 documented as of this encounter
== END 2024-06-22 17:27 | disposition home or self-care (01) ==
LOC: NFLDUCREF 17:29
PROVIDERS: PCP Family Medicine; Visit Provider Nurse Practitioner Family
DX: R82.71 Bacteriuria (principal); R11.2 Nausea with vomiting, unspecified
CPT/HCPCS: 87086; 87186

== ENCOUNTER 2024-06-22 18:20 | Inpatient (IN) | payer MEDICARE, SELFPAY ==
[2024-06-22] VITALS (11 sets, daily range): BP systolic 118–161; BP diastolic 61–93; PULSE 60–101; RESP 16–18; TEMP 36.1–37; O2SAT 96–100; BMI 3813.4; BMI 28.9
[2024-06-22] MEDS: 0.9 % SODIUM CHLORIDE 1000 ml 1,000 ML 125 ML IV (19:00)
--- NOTE | 2024-06-22 19:02 | ED_ITS ---
HPI - General Adult General Date Seen: 06/22/24 Chief complaint: Nausea/Vomiting Stated complaint: Blood panels off, low sodium, poss UTI-ref UC Time Seen by Provider: 06/22/24 18:23 Source: patient Mode of arrival: ambulatory Limitations: no limitations History of Present Illness HPI narrative: Patient is a 64-year-old female presenting to the emergency department after being sent by Urgent Care for hyponatremia and an LEVY. Few days ago she tested positive for a UTI. She is not having symptoms at that time but that is typical for her to not have symptoms initially. This was just a regular checkup. She was started on Bactrim due to her many allergies. She continued to feel worse and they noted that her urine culture was resistant to Bactrim. She has not been started on a new antibiotic yet. She was having worsening nausea and vomiting so she went to the urgent care to be evaluated. At that time they found she had acute kidney injury and hyponatremia. She was then sent to the emergency department. She states to me she is feeling for fatigued and is nauseated. Denies chest pain, shortness of breath, abdominal pain, fevers, chills. She does feel dizzy at this time. Related Data Home Medications ?Medication ?Instructions ?Recorded ?Confirmed albuterol sulfate 0.63 mg/3 mL 0.63 mg inhalation Q4-6H PRN 05/27/22 06/22/24 solution for nebulization aspirin 81 mg chewable tablet 81 mg PO QDAY 05/27/22 06/22/24 (Aspirin Childrens) blood sugar diagnostic (Blood 05/27/22 06/22/24 Glucose Test strips) cyanocobalamin (vitamin B-12) 1,000 mcg PO QDAY 05/27/22 06/22/24 1,000 mcg tablet epinephrine 0.3 mg/0.3 mL 0.3 mg IM ONCE 05/27/22 06/22/24 injection, auto-injector metronidazole 0.75 % topical cream 1 applic topical BID PRN 08/16/22 06/22/24 rosuvastatin 10 mg tablet 10 mg PO QDAY 03/07/23 06/22/24 cranberry PO 08/05/23 06/22/24 estradiol 0.01% (0.1 mg/gram) vaginal .QOD 06/09/24 06/22/24 vaginal cream Previous Rx's ?Medication ?Instructions ?Recorded albuterol sulfate 90 mcg/actuation 2 puff inhalation Q4-6H PRN 02/14/23 aerosol inhaler shortness of breath or wheezing #8.5 grams beclomethasone dipropionate 80 1 inh inhalation BID #31.8 grams 02/14/23 mcg/actuation HFA breath activated aerosol (Qvar RediHaler) magnesium oxide 400 mg (241.3 mg 400 mg PO QDAY #90 tabs 03/07/23 magnesium) tablet ondansetron 8 mg disintegrating 8 mg PO Q12H PRN nausea and 11/28/23 tablet vomiting #30 tabs carvedilol 25 mg tablet 25 mg PO BID #180 tabs 03/22/24 lisinopril 20 1 tab PO QDAY #90 tabs 06/09/24 mg-hydrochlorothiazide 25 mg tablet semaglutide 2 mg/dose (8 mg/3 mL) 2 mg (0.75 mL) subcut QWEEK #3 mL 06/09/24 subcutaneous pen injector metformin 500 mg tablet,extended 500 mg PO BID #180 tabs 06/17/24 release 24 hr ciprofloxacin HCl 500 mg tablet 500 mg PO BID #14 tabs 06/21/24 (Cipro) Allergies Allergy/AdvReac Type Severity Reaction Status Date / Time ciprofloxacin Allergy Severe Anaphylaxis Verified 06/22/24 17:01 latex Allergy Severe Difficulty Verified 06/22/24 17:01 Breathing penicillin V Allergy Severe Shortness Verified 06/22/24 17:01 of Breath adhesive Allergy Intermediate Rash Verified 06/22/24 17:01 cefaclor Allergy Intermediate Swelling Verified 06/22/24 17:01 of Lip/Tongue/Throat neomycin Allergy Intermediate rash Verified 06/22/24 17:01 polymyxin B Allergy Intermediate Rash Verified 06/22/24 17:01 zinc oxide Allergy Intermediate Hives Verified 06/22/24 17:01 Aminoglycosides Allergy Mild Verified 06/22/24 17:01 amlodipine Allergy Mild Gastrointestinal Verified 06/22/24 17:01 Upset bacitracin Allergy Mild Unknown Verified 06/22/24 17:01 shellfish derived AdvReac Intermediate Throat Verified 06/22/24 17:01 Itches triamcinolone AdvReac Intermediate Muscle Pain Verified 06/22/24 17:01 budesonide AdvReac Mild Dizziness Verified 06/22/24 17:01 formoterol AdvReac Mild Dizziness Verified 06/22/24 17:01 nitrofurantoin AdvReac Mild sore throat Verified 06/22/24 17:01 Review of Systems Status of ROS: Reports: 10 or more systems reviewed and unremarkable except as noted in History and below [facility] Medical History Type 2 diabetes mellitus, without long-term current use of insulin ?E11.9 - Type 2 diabetes mellitus without complications (ICD-10) Primary hypertension ?I10 - Essential (primary) hypertension (ICD-10) Hypomagnesemia ?E83.42 - Hypomagnesemia (ICD-10) Gastroesophageal reflux disease ?K21.9 - Gastro-esophageal reflux disease without esophagitis (ICD-10) Left-sided tinnitus ?H93.12 - Tinnitus, left ear (ICD-10) Mild persistent asthma ?J45.30 - Mild persistent asthma, uncomplicated (ICD-10) Retinal hemorrhage ?H35.60 - Retinal hemorrhage, unspecified eye (ICD-10) Spinal stenosis of lumbar region (09/04/10) ?M48.061 - Spinal stenosis, lumbar region without neurogenic claudication (ICD-10) Surgical History History of section ?Z98.891 - History of uterine scar from previous surgery (ICD-10) History of cholecystectomy ?Z90.49 - Acquired absence of other specified parts of digestive tract (ICD- 10) History of dilation and curettage (2011) ?Z98.890 - Other specified postprocedural states (ICD-10) History of laminectomy (2014) ?Z98.890 - Other specified postprocedural states (ICD-10) History of tonsillectomy ?Z90.89 - Acquired absence of other organs (ICD-10) Family History Paternal Grandmother Breast cancer Family/Other Depression Father Diabetes Stroke Sister Coronary artery disease Mother Lung cancer Social History Narrative: exercises regularly, , 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[facility], nonsmoker quit in 's, social drinker 3/week What is your current living situation?: I presently have a place to live Problems where you live: no known problems In the past 12 months, utilities in danger of being shut off: no In past 12 months, lack of transportation kept you from medical appts, meetings, work, or getting things needed for daily living: no In the past 12 mos, have been you worried that your food would run out before you had money to buy more?: never true In the past 12 mos, the food you bought just didn't last and you didn't have money to buy more?: never true Smoking Status: Former smoker Non-prescribed substance use: denies use How often does anyone, including family, friends and others, physically hurt you : never How often does anyone, including family, friends and others, insult or talk down to you: never How often does anyone, including family, friends and others, threaten you with harm: never How often does anyone, including family, friends and others, scream or curse at you: never Little interest or pleasure in doing things: not at all Feeling down, depressed, or hopeless: not at all Exam Narrative: Exam Narrative: Const: Well-nourished, Well-developed, in mild distress Eyes: PERRL, no conjunctival injection, and symmetrical lids HENT: Atraumatic external nose and ears. Moist mucous membranes. Neck: Symmetric, trachea midline, No thyromegaly. CVS: RRR, No murmurs or gallops. Peripheral pulses 2+ and equal in all extremities RESP: Unlabored respiratory effort. Clear to auscultation bilaterally. GI: Nontender/Nondistended, No rebound or guarding. MSK:Extremities w/o deformity, Normal Active ROM Skin: Warm, Dry. No rashes or lesions. Neuro: Normal Muscle tone, No focal neurological deficits. Psych: Awake, Alert, & Oriented x3. Appropriate mood and affect. Const: Vital Signs, click to edit/add: Vital Signs - 24 hr 06/22/24 18:28 06/22/24 19:11 06/22/24 19:15 Temperature 96.9 F L Pulse Rate 61 62 Pulse Rate [Pulse Oximeter] 101 H Respiratory Rate 18 Blood Pressure [Ri ght Upper Arm] 118/73 Pulse Oximetry 98 100 100 Oxygen Delivery Me thod Room Air Course Vital Signs Vital signs: Initial Vital Signs Temperature 96.9 F L 06/22/24 18:28 Temperature Source Temporal Artery Scan 06/22/24 18:28 Pulse Rate 101 H 06/22/24 18:28 Respiratory Rate 18 06/22/24 18:28 Blood Pressure 118/73 06/22/24 18:28 Blood Pressure Mean 88 06/22/24 18:28 Pulse Oximetry 98 06/22/24 18:28 Oxygen Delivery Method Room Air 06/22/24 18:28 Vital Signs Temperature 96.9 F L 06/22/24 18:28 Pulse Rate 101 H 06/22/24 18:28 Respiratory Rate 18 06/22/24 18:28 Blood Pressure 118/73 06/22/24 18:28 Pulse Oximetry 98 06/22/24 18:28 Oxygen Delivery Method Room Air 06/22/24 18:28 Temperature 96.9 F L 06/22/24 18:28 Pulse Rate 62 06/22/24 19:15 Respiratory Rate 18 06/22/24 18:28 Blood Pressure 118/73 06/22/24 18:28 Pulse Oximetry 100 06/22/24 19:15 Oxygen Delivery Method Room Air 06/22/24 18:28 Medications Administered Medications: Discontinued Medications Generic Name Dose Route Start Last Admin Trade Name Freq PRN Reason Stop Dose Admin Ceftriaxone Sodium 1 gm/ 100 mls @ 200 mls/hr 06/22/24 18:55 06/22/24 19:07 Sodium Chloride IVPB 06/22/24 18:56 200 mls/hr ONCE ONE Administration Medical Decision Making [facility] Narrative Medical decision making narrative: Patient is 64-year-old female presenting to the emergency department for abnormal lab values seen in urgent care. She is having some nausea and vomiting but no abdominal pain. Do not believe a CT scan of the abdomen is indicated at this time. She does typically have sodium at about 130. Urinalysis at urgent care show she still has a UTI in she has quite a few allergies. I went through previous chart notes in [facility] and is able to see she was on cefdinir and Rocephin last year so I believe these are safe to give. Rocephin ordered. Will also start her on maintenance fluids to slowly bring her sodium levels up. Reglan given for nausea. CBC, BMP, magnesium, EKG ordered. Repeat sodium was 117 a repeat creatinine is 2.5. Is consistent with her outside labs. CBC shows no concerning findings. Magnesium within normal limits. Will bolus her 1 L of normal saline. Rocephin has been given. She is likely dehydrated as she has been vomiting and has not had much of an appetite. She is agreeable for admission. Lab Data Labs: Lab Results 06/22/24 06/22/24 Range/Units 19:08 19:08 WBC 7.14 (4.50-11.00) K/uL RBC 3.43 L (4.00-5.20) m/uL Hgb 12.1 (12.0-16.0) gm/dL Hct 33.0 (33.0-51.0) % MCV 96 (80-100) fL MCH 35 H (26-34) pg MCHC 37 H (32-36) gm/dL RDW Coeff of Celine 11.3 L (11.5-15.5) % Plt Count 189 (140-440) K/uL Neut % (Auto) 68.2 (42.0-72.0) % Lymph % (Auto) 17.8 L (20-44) % Sunflower % (Auto) 13.0 H (0.0-11.0) % Eos % (Auto) 0.7 (0.0-7.0) % Baso % (Auto) 0.3 (0.0-3.0) % Neut # (Auto) 4.87 (1.7-7.0) K/uL Lymph # (Auto) 1.30 (0.90-2.90) K/uL Sunflower # (Auto) 0.90 (0.00-0.90) K/UL Eos # (Auto) 0.05 (0.00-0.50) K/uL Baso # (Auto) 0.02 (0.00-0.30) K/uL Abs Immat Gran (auto) 0.00 (0.00-0.30) K/uL Imm/Tot Granulo (auto) 0.0 % Sodium 117 L* (135-149) mmol/L Potassium 4.2 (3.6-5.1) mmol/L Chloride 84 L (96-114) mmol/L Carbon Dioxide 21 (20-32) mmol/L Anion Gap 12 (7-15) mEq/L BUN 25 (7-30) mg/dL Creatinine 2.5 H (0.5-1.5) mg/dL Estimated Creat Clear 26.95 Estimated GFR 21 ml/min Glucose 124 H (60-115) mg/dL Calcium 10.2 (8.4-10.6) mg/dL Magnesium 2.2 Cancelled (1.5-2.6) mg/dL ECG Data Attestation: I personally reviewed and interpreted this ECG as follows: Prior ECG tracings: not available for review Interpretation: Normal sinus rhythm with a rate of 60 beats per minute, normal intervals, normal axis, no ST or T-wave abnormalities Discharge Plan Discharge Clinical Impression: Acute hyponatremia, LEVY (acute kidney injury), Acute UTI Patient Disposition: Admitted As Observation Condition: Stable Prescriptions: No Action Qvar RediHaler 80 mcg/actuation HFA aerosol breath activated 1 inh inhalation BID Qty: 31.8 3RF albuterol sulfate 90 mcg/actuation HFA aerosol inhaler 2 puff inhalation Q4-6H PRN (Reason: shortness of breath or wheezing) Qty: 8.5 5RF rosuvastatin 10 mg tablet 10 mg PO QDAY magnesium oxide 400 mg (241.3 mg magnesium) tablet 400 mg PO QDAY Qty: 90 3RF cranberry PO estradiol 0.01 % (0.1 mg/gram) cream vaginal .QOD lisinopril-hydrochlorothiazide 20-25 mg tablet 1 tab PO QDAY Qty: 90 0RF semaglutide 2 mg/dose (8 mg/3 mL) pen injector 2 mg subcut QWEEK Qty: 3 2RF ciprofloxacin HCl [Cipro] 500 mg tablet 500 mg PO BID Qty: 14 0RF (DME) Blood Glucose Test Strip See Rx Instructions .Route Rx Instructions: use to check blood glucose 3 times daily albuterol sulfate 0.63 mg/3 mL solution for nebulization 0.63 mg inhalation Q4-6H PRN epinephrine 0.3 mg/0.3 mL auto-injector 0.3 mg IM ONCE Rx Instructions: as a single dose; may repeat once cyanocobalamin (vitamin B-12) 1,000 mcg tablet 1,000 mcg PO QDAY aspirin [Aspirin Childrens] 81 mg tablet,chewable 81 mg PO QDAY metronidazole 0.75 % cream 1 applic topical BID PRN ondansetron 8 mg tablet,disintegrating 8 mg PO Q12H PRN (Reason: nausea and vomiting) Qty: 30 2RF carvedilol 25 mg tablet 25 mg PO BID Qty: 180 3RF Rx Instructions: must administer with a meal/food metformin 500 mg tablet extended release 24 hr 500 mg PO BID Qty: 180 1RF Follow Up/Referrals: Rip Reynaga MD [Primary Care Provider] -
[2024-06-22] MEDS: cefTRIAXone 1 GM in 0.9 % SODIUM CHLORIDE Mini-bag 100 ML IVPB (19:07)
[2024-06-22 19:13] LABS: Basophils Absolute Auto 0.02 K/uL (0.00-0.30); Basophils Percent Auto 0.3 % (0.0-3.0); Eosinophils Absolute Auto 0.05 K/uL (0.00-0.50); Eosinophils Percent Auto 0.7 % (0.0-7.0); Hemoglobin* 12.1 gm/dL (12.0-16.0); Lymphocytes Percent Auto 17.8 % (20-44); Mean Corpuscular HGB Conc 37 gm/dL (32-36); Mean Corpuscular Hemoglobin 35 pg (26-34); Mean Corpuscular Volume 96 fL (80-100); Neutrophils Absolute Auto 4.87 K/uL (1.7-7.0); Neutrophils Percent Auto 68.2 % (42.0-72.0); Platelet Count* 189 K/uL (140-440); RDW Coefficient of Variation % 11.3 % (11.5-15.5); Red Blood Count 3.43 m/uL (4.00-5.20); White Blood Count* 7.14 K/uL (4.50-11.00)
[2024-06-22 19:26] LABS: Slide Review Reflex No
[2024-06-22 19:34] LABS: Chloride* 84 mmol/L (96-114); Potassium* 4.2 mmol/L (3.6-5.1)
[2024-06-22 19:37] LABS: Anion Gap 12 mEq/L (7-15); Blood Urea Nitrogen* 25 mg/dL (7-30); Carbon Dioxide* 21 mmol/L (20-32); Creatinine* 2.5 mg/dL (0.5-1.5); Est. Creatinine Clearance* 26.95; Estimated Glomerular Filt Rate 21 ml/min; Glucose* 124 mg/dL (60-115)
[2024-06-22 19:38] LABS: Calcium* 10.2 mg/dL (8.4-10.6); Magnesium* 2.2 mg/dL (1.5-2.6)
[2024-06-22 19:40] LABS: Sodium* 117 mmol/L (135-149)
--- OUTSIDE RECORDS SUMMARY | 2024-06-22 19:53 | XMS_ITS | Clinical Summary ---
Author Organization [facility] Address [place], [place] [address] Care Team Providers Care Upset Operator Name Role Phone Rip Reynaga MD Primary [...] [phone] 07/04/2013 07/04/20 12 (Completed outside of [facility]) Colonoscopy through age 75 07/04/201807/04 (Completed outside of [facility]) Tetanus booster 09/28/2018 09/28/2008 (Comp leted outside of [facility]) DEXA/DXA scan for age 65+ 2023 Pneumococcal series for age 65+ (1 of 1 - PCV) 2023 COVID-19 vaccine series ( season) 2023 Influenza for age 65+ 07/04/2024 07/19/2015, 013 Medical Devices Implanted Type Area Stem Maker Device Identifier Shelf Expiration Date Model / Serial / Lot Dura 1x1in Duragen Plus Non-Mcclendon - [id number] Implanted:Qty: 1 on 09/05/2015 by Miguel Angel Matthew MD at [facility] N/A: Spine Integra [employer] Nathaniel [id number] / / [id number] Screw Lmbr Post 6.5x45mm Tsrh 3dx Og Thin Va - [id number] Implanted:Qty: 4 on 09/05/2015 by Miguel Angel Matthew MD at [facility] N/A: Spine Medtronic Spine/Ortho [id number] / / Herman Lmbr 35x5.5mm Tsrh 3d Cvd Titnm - [id number] Implanted:Qty: 2 on 09/05/2015 by Miguel Angel Matthew MD at [facility] N/A: Spine Medtronic Spine/Ortho [id number] / / Cnnctr Lmbr Sm 5.5mm Tsrh 3dx Titnm - [id number] Implanted:Qty: 4 on 09/05/2015 by Miguel Angel Matthew MD at [facility] N/A: Spine Medtronic Spine/Ortho [id number] / / Advance Directives * Full Code (Latest Code Status on File) Date Activated Date Inactivated Comments 09/05/2015 7:27 PM 09/08/2015 3:20 PM * Full Code Date Activated Date Inactivated Comments 09/05/2015 10:40 AM 09/05/2015 7:27 PM Question Answer Comments Code Status Discussion: Discussed Care Teams Upset Operator Relationship Specialty Start Date End Date Rip Reynaga MD [address] [facility] [address] PCP - General Family Practice 05/18/20
--- OUTSIDE RECORDS SUMMARY | 2024-06-22 19:53 | XMS_ITS | Encounter Summary ---
Author Organization [facility] Address [address] [place] [address] Care Team Providers Care Groover And Striper Operator Name Role Phone Elsewhere, Pcp Primary Care Provider Unavailabl e Reason for Visit * Reason Comments Skin Check * Appointment Request (Routine) - Closed Specialty Diagnoses / Procedures Referred By Cindy t Referred To Contact Dermatology Referral ID Status Reason Start Date Expiration Date Visits Re quested Visits Authorized [id number] Closed 01/02/2024 01/01/2025 1 1 Encounter Details Date Type Department Care Team (Late st Contact Info) Description 06/22/2024 2:00 PM CDT Office Visit Department of Dermatology in [address] [phone] Mikhail Delgaod M.D. [address] [place] [id number] Keratosis Actinic (Primary Dx); Nevi Multiple; Keratosis [...] your living situation today? [facility] [employer] [facility] 04/22/2023 Sex and Gender [...] cancer screening HISTORY OF PRESENT ILLNESS Ly Bocuher is a pleasant 64 y.o. female who [...] extremities. My scribe (Dejah) served as a radio division officer for the entirety of the exam. Examination [...] performance and is accurate and complete. Mikhail Delagdo M.D. Scribed for Mihkail Delgado M.D. by Dejah Pearce, on 06/22/2024, 2:30 PM CDT. documented in this encounter Plan of Treatment Not on file documented as of this encounter Visit Diagnoses Diagnosis Keratosis Actinic- Primary Nevi Multiple Keratosis Seborrheic documented in this encounter Care Teams Groover And Striper Operator Relationship Specialty Start Date End Date Elsewhere, Pcp PCP - General Internal Medicine 02/23/23 documented as of this encounter
--- OUTSIDE RECORDS SUMMARY | 2024-06-22 19:53 | XMS_ITS | Encounter Summary ---
Author Organization [facility] Address [address] [place] [address] Care Team Providers Care Automobile Mechanic Helper Name Role Phone Elsewhere, Pcp Primary Care [...] on filedocumented in this encounter Care Teams Automobile Mechanic Helper Relationship Specialty Start Date End Date Elsewhere, Pcp PCP - General Internal Medicine 02/23/23 documented as of this encounter
--- OUTSIDE RECORDS SUMMARY | 2024-06-22 19:53 | XMS_ITS ---
Author Organization [facility] Address [address] [place] [address] Care Team Providers Care House Cleaner Supervisor Name Role Phone Unavailable Unavailable Unavailable Surgery Details Not on file Complications Check Surgery Details section. Procedure Estimated Blood Loss Check Surgery Details section. Procedure Findings Check Surgery Details section. Procedure Specimens Taken Check Surgery Details section.
--- OUTSIDE RECORDS SUMMARY | 2024-06-22 19:53 | XMS_ITS | Continuity of Care Document ---
Author Organization [facility] Address [address] [place] [address] Phone Care Team Providers Care Hearing Screen Coordinator Name Role Phone Norberto Ayalaca Unavailable Unavailable [...] tient Visit,Est, Mod [facility], [address], [place], [place], [id number], [place] tel:[phone] [facility] [place] Spondylolisth esis, lumbar region 7 Pelkola Fiordaliza. [facility], [address] [place] [address], [id number] , [place]. tel:[phone] Referring Provider: Galdino Gloria, [facility] [address] [place], [address]. tel:[phone] Office/Outpa tient Visit,Est, Mod [facility], [address] [place] [address], [id number], [place] tel:[phone] [facility] [place] Spondylolisth esis, lumbar regionSpinal stenosis, lumbar region 6 Pelkola Fiordaliza. [facility], [address] [place] [address] [address], [place], [place], [id number] , [place]. tel:[phone] Referring Provider: Galdino Gloria, [facility] [address] [place], [address]. tel:[phone] Office/Outpa tient Visit,Est, Mod [facility], [address] [place] [address], [id number], [place] tel:[phone] [facility] [place] Arthrodesis statusSpinal stenosis, lumbar regionSpondyl olisthesis, lumbar region 6 Tiff Michelle. [facility], [address] [place] [address], [address], [place], [place], [id number] , [place]. tel:[phone] Referring Provider: Galdino Gloria, [facility] [address] [place], [address]. tel:[phone] Office/Outpa tient Visit,Est, Mod [facility], [address], [place], [place], [id number], [place] tel:[phone] [facility] [place] OverweightEss ential (primary) hypertensionS shahzad stenosis, lumbar regionSpondyl olisthesis, lumbar regionArthrod esis status Tiff Michelle. [facility], [address] [place] [address], [address], [place], [place], [id number] , [place]. tel:[phone] Referring Provider: Galdino Gloria, [facility] [address] [place], [address]. tel:[phone] [facility], [address], [place], [id number], [place] tel:[phone] [facility] [place] Spondylolisth esis, lumbar regionSpinal stenosis, lumbar region Pelkola Fiordaliza. [facility], [address] [place] [address] [address], [place], [place], [id number] , [place]. tel:[phone] Referring Provider: Galdino Gloria, [facility] [address] [place], [address]. tel:[phone] [facility], [address], [place], [place], [id number], [place] tel:[phone] [facility] [place] OverweightSpo ndylolisthesi s, lumbar regionSpondyl olisthesis, lumbar region Tiff Michelle. [facility], [address] [place] [address], [address], [place], [place], [id number] , [place]. tel:[phone] [facility], [address] [place] [address], [id number], [place] tel:[phone] [facility] No Information 3201 5 Tiff Michelle. [facility], [address], [address], [place], [place], [id number] , [place]. tel:[phone] Referring Provider: Galdino Gloria, [facility] [address] [place], [address]. tel:[phone] Office/Outpa tient Visit,Est, Mod [facility], [address], [place], [place], [id number], [place] tel:[phone] [facility] [place] OverweightEss ential (primary) hypertensionS shahzad stenosis, lumbar regionSpondyl olisthesis, lumbar regionRadicul opathy, lumbar region Nov-0 2-201 5 Tiff Michelle. [facility], [address] [place] [address], [address], [place], [place], [id number] , [place]. tel:[phone] Referring Provider: Galdino Gloria, [facility] [address] [place], [address]. tel:[phone] Office/Outpa tient Visit,New, High [facility], [address], [place], [place], [id number], [place] tel:[phone] [facility] [place] Thoracic spondylosis with myelopathySpi nal stenosis of lumbar region with neurogenic claudicationA cquired spondylolisth esis Sep-2 3-201 5 Pelkola Fiordaliza. [facility], [address] [place] [address] [address], [place], [place], [id number] , [place]. tel:[phone] Referring Provider: Galdino Gloria, [facility] [address] [place], [address]. tel:[phone] Office consultation , low Z [facility], [address], [place], [address], [place] tel:[phone] [facility] [place] No Information 6 Tiff Michelle. [facility], [address] [place] [address], [address], [place], [place], [id number] , . tel:[phone] Referring Provider: Davin Obando, [facility] [address] [place], [address]. tel:[phone] Family History Family Member Type Diagnosis Age At Onset No Information Payers Payer name Insurance type Covered green party ID Donnie reynaga(s) [employer] [id number] [facility] [id number] Social History Type Description Quantity Date Captured [...]
--- OUTSIDE RECORDS SUMMARY | 2024-06-22 19:53 | XMS_ITS | Referral Summary ---
Author Organization [facility] Address [address] [place] [address] Care Team Providers Care Advertising Representative Name Role Phone Elsewhere, Pcp Primary Care Provider Unavailabl e Source Comments Patient records contain information from all sites at [facility]. For routine questions regarding patient records, call [phone] during business hours, M-F 8:00 AM - 5:00 PM Central Time. Record requests for emergency care only can be directed to [phone] at any time.[facility] Encounters Date Type Department Care Team Description 06/22/2024 2:35 PM CDT Ancillary Procedure Department of Dermatology Arrived 06/22/2024 2:00 PM CDT Office Visit Department of Dermatology in [address] [address] Mikhail Delgado M.D. Keratosis Actinic (Primary Dx); [...] your living situation today? I have a [facility] place to live 04/22/2023 Sex and [...] on file Medical Devices Implanted Type Area Bathhouse Keeper Device Identifier Shelf Expiration Date Model / [...] CDT Bob Alvarado M.D. LAB BLOOD ADD-ON [facility] [address] [place] [address], [facility] CN[facility] in [address] [address] * (ABNORMAL) Basic Metabolic Panel (03/24/2023 6:49 [...] CDT Chanel Kinsey M.D. LAB BLOOD ADD-ON [facility] [address] [place] [address], [facility] in [address] [address] * (ABNORMAL) Hemoglobin A1c (02/24/2023 3:40 AM [...] Lori Anderson APRN, C.N.P. LAB BLOOD ADD-ON [facility] [address] [place] [address], [place] [facility] [address] [place] [address] from Last 3 Months or Most Recently Relevant to Health Maintenance Advance Directives For more information, please contact: [phone] * Full Code (Latest Code Status on File) Date Activated Date Inactivated Comments 03/22/2023 10:39 PM 03/24/2023 1:12 PM Question Answer Comments Full Code: Not Discussed Due to: Patient not available * Full Code Date Activated Date Inactivated Comments 02/23/2023 8:26 PM 02/24/2023 8:04 PM Question Answer Comments Full Code: Discussed Care Teams Advertising Representative Relationship Specialty Start Date End Date Elsewhere, Pcp PCP - General Internal Medicine 02/23/23
--- OUTSIDE RECORDS SUMMARY | 2024-06-22 19:53 | XMS_ITS | Clinical Summary ---
Author Organization [facility] Address [address] [place] [address] Care Team Providers Care Pick Up Man Name Role Phone Elsewhere, Pcp Primary Care Provider Unavailabl e Source Comments Patient records contain information from all sites at [facility]. For routine questions regarding patient records, call [phone] during business hours, M-F 8:00 AM - 5:00 PM Central Time. Record requests for emergency care only can be directed to [phone] at any time.[facility] Allergies Active Allergy Reactions Criticality Noted [...] CDT Office Visit Department of Dermatology in [address] [phone] Mikhail Delgado M.D. Keratosis Actinic (Primary Dx); [...] your living situation today? I have a [facility] place to live 04/22/2023 Sex and Gender [...] 04/04, 02/18/2019 Medical Devices Implanted Type Area Commutator Assembler Device Identifier Shelf Expiration Date Model / [...] System IMG NON RAD IMAGI NG PROCEDURES [facility] NA * (ABNORMAL) Lipid Panel [...] CDT Bob Alvarado M.D. LAB BLOOD ADD-ON [facility] [address] [place] [address], [facility] CN[facility] in [address] [address] * (ABNORMAL) Basic Metabolic Panel (03/24/2023 6:49 [...] CDT Chanel Kinsey M.D. LAB BLOOD ADD-ON [facility] [address] [place] [address], [place] [facility] in [address] [address] * (ABNORMAL) Hemoglobin A1c (02/24/2023 3:40 AM [...] CDT Rodrigo Recinos APRNNSamir. LAB BLOOD ADD-ON [facility] [address] [place] [address], [place] DTL [facility] [address] [place] [address] from Last 3 Months or Most Recently Relevant to Health Maintenance Advance Directives For more information, please contact: [phone] * Full Code (Latest Code Status on File) Date Activated Date Inactivated Comments 03/22/2023 10:39 PM 03/24/2023 1:12 PM Question Answer Comments Full Code: Not Discussed Due to: Patient not available * Full Code Date Activated Date Inactivated Comments 02/23/2023 8:26 PM 02/24/2023 8:04 PM Question Answer Comments Full Code: Discussed Care Teams Pick Up Man Relationship Specialty Start Date End Date Elsewhere, Pcp PCP - General Internal Medicine 02/23/23
[2024-06-22] MEDS: 0.9 % SODIUM CHLORIDE 1000 ml 1,000 ML IV (20:00)
[2024-06-22] MEDS: METOCLOPRAMIDE HCL 5 MG/ML INJ 10 MG IVP (20:05)
--- NOTE | 2024-06-22 21:36 | PM.IMHP1 ---
Hospitalist- H&P: HPI History of Present Illness Time Seen by Provider: 21:37 Date Seen: 06/22/24 Chief complaint: Blood panels off, low sodium, poss UTI-ref UC Narrative: Ly Boucher is a 64 year old female with a history of type 2 diabetes mellitus, hypertension, asthma, and recurrent UTI who was seen in urgent care today for not feeling well and was found to have a sodium of 117. She was sent to the emergency department. She tells me that she recently saw Dr. Reynaga for a well visit and was feeling okay at the time with no urinary symptoms. She says a urine culture was done because she has a history of recurrent urinary tract infections. She saw Urology last year and had been on Bactrim for 90 days, but continued to get urinary tract infections after that. The urine culture done at her recent well visit was abnormal and she was started on Bactrim. The culture recently came back as E coli that was resistant to Bactrim. She has multiple medication allergies including several different antibiotics. She says the clinic called yesterday and switched her to ciprofloxacin, but she could not take it because she has a history of anaphylaxis with that. Today she felt nauseated and fatigued so she went urgent care. Also of note is that she asks for water several times during my interview saying that she was really thirsty. She continued to ask for water despite me telling her that we need to have her on a fluid restriction for hyponatremia. She has been told me that she normally drinks a lot of water and was drinking even more water recently because of the urinary tract infection. She has a history of hyponatremia that is chronically around 130. She has never been hospitalized for this. She denies confusion although she seemed to have trouble giving history and would often mix things up or answering similar questions differently. Review of Systems Status of ROS: Reports: 10 or more systems reviewed and unremarkable except as noted in History and below Narrative: She reports chronic bilateral lower extremity numbness due to diabetes mellitus type 2. [facility] Medical History (Updated 06/23/24 @ 00:07 by Radha Maravilla MD) Supraventricular tachycardia, unspecified (02/23/23) ?I47.10 - Supraventricular tachycardia, unspecified (ICD-10) Type 2 diabetes mellitus, without long-term current use of insulin ?E11.9 - Type 2 diabetes mellitus without complications (ICD-10) Primary hypertension ?I10 - Essential (primary) hypertension (ICD-10) Hypomagnesemia ?E83.42 - Hypomagnesemia (ICD-10) Gastroesophageal reflux disease ?K21.9 - Gastro-esophageal reflux disease without esophagitis (ICD-10) Left-sided tinnitus ?H93.12 - Tinnitus, left ear (ICD-10) Mild persistent asthma ?J45.30 - Mild persistent asthma, uncomplicated (ICD-10) Retinal hemorrhage ?H35.60 - Retinal hemorrhage, unspecified eye (ICD-10) Spinal stenosis of lumbar region (09/04/10) ?M48.061 - Spinal stenosis, lumbar region without neurogenic claudication (ICD-10) Surgical History (Updated 06/22/24 @ 21:39 by Radha Maravilla MD) History of mandibular surgery ?Z98.890 - Other specified postprocedural states (ICD-10) History of section ?Z98.891 - History of uterine scar from previous surgery (ICD-10) History of cholecystectomy ?Z90.49 - Acquired absence of other specified parts of digestive tract (ICD-10) History of dilation and curettage (2011) ?Z98.890 - Other specified postprocedural states (ICD-10) History of laminectomy (2014) ?Z98.890 - Other specified postprocedural states (ICD-10) History of tonsillectomy ?Z90.89 - Acquired absence of other organs (ICD-10) Family History Paternal Grandmother Breast cancer Family/Other Depression Father Diabetes Stroke Sister Coronary artery disease Mother Lung cancer Social History (Updated 06/22/24 @ 21:40 by Radha Maravilla MD) Narrative: exercises regularly, , 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[facility], nonsmoker quit in 20's, social drinker 1-3/week What is your current living situation?: I presently have a place to live Problems where you live: no known problems Problems where you live details: none In the past 12 months, utilities in danger of being shut off: no In past 12 months, lack of transportation kept you from medical appts, meetings, work, or getting things needed for daily living: no In the past 12 mos, have been you worried that your food would run out before you had money to buy more?: never true In the past 12 mos, the food you bought just didn't last and you didn't have money to buy more?: never true Smoking Status: Former smoker Do you use any of these nicotine containing products: None How often do you have a drink containing alcohol: 2-3 times a week Alcohol type: hard liquor Alcohol type details: vodka How many standard drinks containing alcohol do you have on a typical day: 3 or 4 How often do you have six or more drinks on one occasion: Never AUDIT-C Alcohol total score: 4 Non-prescribed substance use: denies use Caffeine: Yes (tea) How often does anyone, including family, friends and others, physically hurt you: never How often does anyone, including family, friends and others, insult or talk down to you: never How often does anyone, including family, friends and others, threaten you with harm: never How often does anyone, including family, friends and others, scream or curse at you: never Little interest or pleasure in doing things: not at all Feeling down, depressed, or hopeless: not at all service: No Meds Home Medications and Allergies Home Medications ?Medication ?Instructions ?Recorded ?Confirmed ?Type albuterol sulfate 0.63 mg/3 mL 0.63 mg inhalation Q4-6H PRN 05/27/22 06/22/24 History solution for nebulization aspirin 81 mg chewable tablet 81 mg PO QDAY 05/27/22 06/22/24 History (Aspirin Childrens) blood sugar diagnostic (Blood 05/27/22 06/22/24 History Glucose Test strips) cyanocobalamin (vitamin B-12) 1,000 mcg PO QDAY 05/27/22 06/22/24 History 1,000 mcg tablet epinephrine 0.3 mg/0.3 mL 0.3 mg IM ONCE 05/27/22 06/22/24 History injection, auto-injector metronidazole 0.75 % topical cream 1 applic topical BID PRN 08/16/22 06/22/24 History rosuvastatin 10 mg tablet 10 mg PO QDAY 03/07/23 06/22/24 History cranberry PO 08/05/23 06/22/24 History estradiol 0.01% (0.1 mg/gram) 1 appful vaginal .QOD 06/09/24 06/22/24 History vaginal cream semaglutide 2 mg/dose (8 mg/3 mL) 1.5 mg subcut QWEEK 06/22/24 06/22/24 History subcutaneous pen injector Allergies Allergy/AdvReac Type Severity Reaction Status Date / Time banana Allergy Severe Swelling Verified 06/22/24 22:36 of Lip/Tongue/Throat ciprofloxacin Allergy Severe Anaphylaxis Verified 06/22/24 17:01 kiwi Allergy Severe Swelling Verified 06/22/24 22:36 of Lip/Tongue/Throat latex Allergy Severe Difficulty Verified 06/22/24 17:01 Breathing penicillin V Allergy Severe Shortness Verified 06/22/24 17:01 of Breath adhesive Allergy Intermediate Rash Verified 06/22/24 17:01 cefaclor Allergy Intermediate Swelling Verified 06/22/24 17:01 of Lip/Tongue/Throat neomycin Allergy Intermediate rash Verified 06/22/24 17:01 polymyxin B Allergy Intermediate Rash Verified 06/22/24 17:01 zinc oxide Allergy Intermediate Hives Verified 06/22/24 17:01 Aminoglycosides Allergy Mild Verified 06/22/24 17:01 amlodipine Allergy Mild Gastrointestinal Verified 06/22/24 17:01 Upset bacitracin Allergy Mild Unknown Verified 06/22/24 17:01 shellfish derived AdvReac Intermediate Throat Verified 06/22/24 17:01 Itches triamcinolone AdvReac Intermediate Muscle Pain Verified 06/22/24 17:01 budesonide AdvReac Mild Dizziness Verified 06/22/24 17:01 formoterol AdvReac Mild Dizziness Verified 06/22/24 17:01 nitrofurantoin AdvReac Mild sore throat Verified 06/22/24 17:01 Exam Narrative: Exam Narrative: General: No acute distress. Awake alert oriented x3. Obese. Slightly confused while giving history. HEENT: Normocephalic atraumatic, pupils equally round and reactive to light and accommodation. Oropharynx clear. Mucous membranes are dry. No cervical lymphadenopathy, thyromegaly or carotid bruits. No JVD. Cardiovascular: Regular rate and rhythm. No murmurs, gallops, or rubs. Chest: No increased work of breathing. Clear to auscultation bilaterally. No crackles or wheezes. Abdomen: Bowel sounds present. Soft, nondistended, nontender. No hepatosplenomegaly or masses. Extremities: No edema, no cyanosis or clubbing. Skin: No jaundice, no pallor, no rashes. Neuro: Other than chronic bilateral lower extremity numbness, there are no focal deficits. Cranial nerves 2-12 are intact. No facial asymmetry. Tongue is midline. Peripheral vision and vision are grossly intact. Strength is 5/5 in all 4 extremities. DTRs intact and symmetric. Light touch sensation is intact in face body and extremities. Coordination is intact in upper and lower extremities. Const: Vital Signs, click to edit/add: Vital Signs - 24 hr 06/22/24 18:28 06/22/24 19:11 06/22/24 19:15 Temperature 96.9 F L Pulse Rate 61 62 Pulse Rate [Pulse Oximeter] 101 H Respiratory Rate 18 Blood Pressure Blood Pressure [Ri ght Upper Arm] 118/73 Pulse Oximetry 98 100 [facility] 06/22/24 19:30 06/22/24 19:45 06/22/24 19:56 Temperature Pulse Rate 61 61 62 Pulse Rate [Pulse Oximeter] Respiratory Rate Blood Pressure 154/61 H Blood Pressure [Ri ght Upper Arm] Pulse Oximetry 100 100 100 Oxygen Delivery Me thod 06/22/24 20:00 Temperature Pulse Rate 60 Pulse Rate [Pulse Oximeter] Respiratory Rate Blood Pressure Blood Pressure [Ri ght Upper Arm] Pulse Oximetry 96 [facility] - H&P: Result Labs Labs: Short CBC 06/22/24 Range/Units 19:08 WBC 7.14 (4.50-11.00) K/uL Hgb 12.1 (12.0-16.0) gm/dL Hct 33.0 (33.0-51.0) % Plt Count 189 (140-440) K/uL BMP 06/22/24 19:08 Sodium 117 L* Potassium 4.2 Chloride 84 L Carbon Dioxide 21 BUN 25 Creatinine 2.5 H Glucose 124 H Calcium 10.2 06/22/2024 EKG: Normal sinus rhythm, 60 beats per minute, low voltage QRS. Assessment and Plan Assessment and plan (1) LEVY (acute kidney injury): Problem comment: - BUN is not markedly elevated, but she does appear hypovolemic on clinical exam. Will start with hydration, she got a L of normal saline in the emergency department and I will continue normal saline overnight for maintenance fluids. Due to hyponatremia she will be on a free water restriction. Will recheck renal function in the morning. If it is not improving, consider renal ultrasound Status: Acute (2) Acute hyponatremia: Problem comment: - sodium was 117 in urgent care and ER today. Sodium is now 118 after normal saline. Goal is a total increase of sodium of 4-6 millimoles per L over 24 hours. This being the case, it will likely take at least 3 days to get her back to a sodium near baseline. Since she is already increasing with hydration, I will add a fluid restriction, which I think will bring her sodium up quite a bit since she usually drinks a lot of free water. Recheck sodium in the morning. Status: Acute (3) Bacteriuria: Problem comment: - unclear if this is urinary tract infection. I think she is symptomatic from hyponatremia rather than a UTI, but her urinalysis is quite abnormal and she does have a recent history of Bactrim resistant E coli on urine culture and recurrent urinary tract infection. For the time being I will continue with ceftriaxone that was started in the emergency department. I think she would benefit from returning to see a urologist to make recommendations about whether not she should have urinalysis and urine culture when she is asymptomatic as an outpatient. Status: Acute (4) Recurrent UTI: Status: Chronic (5) Type 2 diabetes mellitus, without long-term current use of insulin: Problem comment: Due to LEVY I will hold metformin. Will use an insulin sliding scale in the meantime. Status: Chronic (6) Primary hypertension: Problem comment: Due to LEVY I am holding lisinopril and hydrochlorothiazide. Status: Chronic (7) Mild persistent asthma: Problem comment: Not symptomatic, continue QVAR and use albuterol as needed Status: Chronic Plan Patient has a recent history of retinal hemorrhage so I will not give any pharmacologic prophylaxis for VTE. Will start SCDs and Jude's hose.
[2024-06-22 22:07] LABS: Sodium* 118 mmol/L (135-149)
[2024-06-23] VITALS (7 sets, daily range): BP systolic 100–149; BP diastolic 64–78; PULSE 64–74; RESP 16–18; TEMP 36.3–36.9; O2SAT 98–100; BMI 27.4
--- NOTE | 2024-06-23 04:27 | PC.NURSE ---
Pt rested well this night. No N/V. Reporting zero pain. Up IND in room. Voiding. Following fluid restrictions. Pleasant and cooperative.
[2024-06-23] MEDS: 0.9 % SODIUM CHLORIDE 1000 ml 1,000 ML 125 ML IV (04:47)
[2024-06-23] MEDS: OMEPRAZOLE 20 MG CAPSULE DR 40 MG PO (06:03)
[2024-06-23 06:47] LABS: Chloride* 94 mmol/L (96-114); Potassium* 3.9 mmol/L (3.6-5.1)
[2024-06-23 06:49] LABS: Creatinine* 2.1 mg/dL (0.5-1.5); Est. Creatinine Clearance* 24.67; Estimated Glomerular Filt Rate 26 ml/min
[2024-06-23 06:50] LABS: Anion Gap 10 mEq/L (7-15); Blood Urea Nitrogen* 21 mg/dL (7-30); Calcium* 9.3 mg/dL (8.4-10.6); Carbon Dioxide* 18 mmol/L (20-32); Glucose* 113 mg/dL (60-115)
[2024-06-23 06:58] LABS: Sodium* 122 mmol/L (135-149)
[2024-06-23] MEDS: carvediloL 25 MG TABLET PO ×2 (08:48→20:31)
[2024-06-23] MEDS: MAGNESIUM OXIDE 400 MG TABLET PO (08:48)
[2024-06-23] MEDS: ASPIRIN 81 MG TAB.CHEW PO (08:48)
[2024-06-23] MEDS: CYANOCOBALAMIN (VITAMIN B-12) 500 MCG TABLET 1000 MCG PO (08:49)
--- NOTE | 2024-06-23 08:53 | P.IMPN_ITS ---
Progress Note: A&P Assessment and plan (1) LEVY (acute kidney injury): Problem details: - LEVY likely 2/2 UTI, improving SCr 2.5 -> 2.1 - S/P a L of normal saline in the emergency department - S/P normal saline overnight for maintenance fluids, rate 125 cc/hr. - Due to hyponatremia she will be on a free water restriction, 1.5 L/24hrs. - Cont holding metformin, lisinopril and hydrochlorothiazide. - Will recheck renal function in the morning. If it is not improving, consider renal ultrasound Status: Acute (2) Acute hyponatremia: Problem details: - Hyponatremia, DDx primary polydipsia v/s SIADH. - Na+ was 117 in urgent care and ER today. Improved after normal saline. - Goal is a total increase of sodium of 4-6 millimoles/ L over 24 hours. This being the case, it will likely take at least 3 days to get her back to a sodium near baseline. - On fluid restriction, 1.5 L/24hrs. Per Hx, she usually drinks a lot of free water. - Frequent sodium checks. Status: Acute (3) Bacteriuria: Problem details: - Bacteriuria versus UTI. Unclear if this is urinary tract infection. - Urinalysis is quite abnormal and she does have a recent history of Bactrim resistant E coli on urine culture and recurrent urinary tract infection. - Continue ceftriaxone - She would benefit from F/up with a urologist for recurrent UTIs. Status: Acute (4) Recurrent UTI: Problem details: - She would benefit from F/up with a urologist for recurrent UTIs. Status: Chronic (5) Type 2 diabetes mellitus, without long-term current use of insulin: Problem details: - Due to LEVY Continue hold on metformin. - Cont insulin sliding scale. Status: Chronic (6) Primary hypertension: Problem details: Due to LEVY, cont holding lisinopril and hydrochlorothiazide. Status: Chronic (7) Mild persistent asthma: Problem details: Not symptomatic, continue QVAR and use albuterol as needed Status: Chronic Plan As above Time Spent With Patient Total time spent: Today I spent 50 minutes seeing the patient, reviewing Expanse and EPIC notes/diagnostics, discussing the care plan with our care time that includes, pharmacy, nursing and documenting my impressions and plan in the medical record. Subjective Date Seen: 06/23/24 Interval history: Patient was seen and examined at bedside today. No acute events overnight. Patient states that she feels much better today, less fatigue no dizziness or lightheadedness as she used to feel before. She denies any burning sensation on urination or any other urinary symptoms, no increased frequency and a good amount of urine overnight. She also mentioned that she was able to eat this morning without nausea or vomiting. Exam Narrative: Exam Narrative: Physical exam GENERAL: Comfortable, no acute distress. HEAD AND NECK: Atraumatic, normocephalic CARDIOVASCULAR: RRR. Normal S1, S2. No murmurs. RESPIRATORY: Clear to auscultation B/L. Good air entry B/L. No wheezes or rhonchi. GASTROINTESTINAL: Not distended, not tender to palpation. NEUROLOGY: Alert, awake, oriented X 3. Normal speech. No focal weakness. PSYCH: Normal mood, normal affect. Const: Vital Signs, click to edit/add: Vital Signs - 24 hr 06/22/24 18:28 06/22/24 19:11 06/22/24 19:15 Temperature 96.9 F L Pulse Rate 61 62 Pulse Rate [Pulse Oximeter] 101 H Respiratory Rate 18 Blood Pressure Blood Pressure [Le ft Arm] Blood Pressure [Ri ght Upper Arm] 118/73 Pulse Oximetry 98 100 100 Oxygen Delivery Me thod Room Air 06/22/24 19:30 06/22/24 19:45 06/22/24 19:56 Temperature Pulse Rate 61 61 62 Pulse Rate [Pulse Oximeter] Respiratory Rate Blood Pressure 154/61 H Blood Pressure [Le ft Arm] Blood Pressure [Ri ght Upper Arm] Pulse Oximetry 100 100 100 Oxygen Delivery Me thod 06/22/24 20:00 06/22/24 21:49 06/22/24 21:49 Temperature 97.7 F Pulse Rate 60 Pulse Rate [Pulse Oximeter] 66 Respiratory Rate 18 18 Blood Pressure Blood Pressure [Le ft Arm] 161/75 H Blood Pressure [Ri ght Upper Arm] Pulse Oximetry 96 100 [facility] 06/22/24 23:27 06/22/24 23:29 06/22/24 23:30 Temperature 98.6 F Pulse Rate Pulse Rate [Pulse Oximeter] 77 77 Respiratory Rate 16 16 16 Blood Pressure Blood Pressure [Le ft Arm] 138/93 H Blood Pressure [Ri ght Upper Arm] Pulse Oximetry 99 99 Oxygen Delivery Me thod Room Air 06/23/24 02:17 06/23/24 07:00 Temperature 98.2 F 97.4 F L Pulse Rate Pulse Rate [Pulse Oximeter] 64 74 Respiratory Rate 16 16 Blood Pressure Blood Pressure [Le ft Arm] 148/73 H 140/74 H Blood Pressure [Ri ght Upper Arm] Pulse Oximetry 100 98 Oxygen Delivery Me thod Room Air Room Air Labs Labs: Laboratory Results - last 24 hr 06/22/24 06/22/24 06/22/24 19:08 19:08 21:33 WBC 7.14 RBC 3.43 L Hgb 12.1 Hct 33.0 MCV 96 MCH 35 H MCHC 37 H RDW Coeff of Celine 11.3 L Plt Count 189 Neut % (Auto) 68.2 Lymph % (Auto) 17.8 L [place] % (Auto) 13.0 H Eos % (Auto) 0.7 Baso % (Auto) 0.3 Neut # (Auto) 4.87 Lymph # (Auto) 1.30 [place] # (Auto) 0.90 Eos # (Auto) 0.05 Baso # (Auto) 0.02 Abs Immat Gran (auto) 0.00 Imm/Tot Granulo (auto) 0.0 Sodium 117 L* 118 L* Potassium 4.2 Chloride 84 L Carbon Dioxide 21 Anion Gap 12 BUN 25 Creatinine 2.5 H Estimated Creat Clear 26.95 Estimated GFR 21 Glucose 124 H Calcium 10.2 Magnesium 2.2 Cancelled 06/23/24 06:22 WBC RBC Hgb Hct MCV MCH MCHC RDW Coeff of Celine Plt Count Neut % (Auto) Lymph % (Auto) [place] % (Auto) Eos % (Auto) Baso % (Auto) Neut # (Auto) Lymph # (Auto) [place] # (Auto) Eos # (Auto) Baso # (Auto) Abs Immat Gran (auto) Imm/Tot Granulo (auto) Sodium 122 L* Potassium 3.9 Chloride 94 L Carbon Dioxide 18 L Anion Gap 10 BUN 21 Creatinine 2.1 H Estimated Creat Clear 24.67 Estimated GFR 26 Glucose 113 Calcium 9.3 Magnesium Objective Data Details: Run Date: 06/23/24 [facility] Page: 1 Run Date: [address] [place], [place] [id number] Clinical Laboratory Report Name: Ly Boucher Acct: [id number] Loc: [facility] Age/Sex: 64/F : 1960 Status: DEP AMB Reg Dr: Rip Reynaga M.D. Specimen: [id number] COMP Collected: 06/09/24-1004 Received: 06/09/24 -4 Source: Urine CC Sp Descrip: Janki Dr: Rip Reynaga M.D. Dr: Procedure Result Site Urine Culture* Final ML Organism 1 Escherichia coli Ur Pierron Count >100,000 CFU/ml E coli FANNY RX --------- --- Ampicillin >=32 R Ampicillin/Sulbactam >=32 R Cefazolin <=4 S Cefepime <=1 S Cefoxitin <=4 S Ceftazidime <=1 S Ceftriaxone <=1 S Ciprofloxacin <=0.25 S Ertapenem <=0.5 S Gentamicin <=1 S Imipenem <=0.25 S Levofloxacin <=0.12 S Nitrofurantoin <=16 S Tobramycin <=1 S Trimethoprim/Sulfamethoxazole >=320 R Piperacillin/Tazobactam <=4 S
[2024-06-23] MEDS: INSULIN ASPART 100 UNIT/ML SUBCUT ×3 (11:41→20:34)
[2024-06-23 12:38] LABS: Sodium* 126 mmol/L (135-149)
[2024-06-23 16:38] LABS: Sodium* 123 mmol/L (135-149)
[2024-06-23] MEDS: cefTRIAXone 1 GM in 0.9 % SODIUM CHLORIDE Mini-bag 100 ML IVPB (19:28)
[2024-06-23] MEDS: SODIUM CHLORIDE 0.9 % (FLUSH) 10 ML SYRINGE 5 ML IVF (20:16)
[2024-06-24 03:00] VITALS: BP 145/70; PULSE 78; RESP 16; TEMP 36.7; O2SAT 98
[2024-06-24] MEDS: OMEPRAZOLE 20 MG CAPSULE DR 40 MG PO (05:58)
[2024-06-24 06:16] LABS: Basophils Absolute Auto 0.01 K/uL (0.00-0.30); Basophils Percent Auto 0.2 % (0.0-3.0); Eosinophils Absolute Auto 0.05 K/uL (0.00-0.50); Eosinophils Percent Auto 0.9 % (0.0-7.0); Hematocrit 28.7 % (33.0-51.0); Hemoglobin* 10.2 gm/dL (12.0-16.0); Immature Granulocytes Abs Auto 0.03 K/uL (0.00-0.30); Immature Granulocytes Pct Auto 0.5 %; Lymphocytes Absolute Auto 1.21 K/uL (0.90-2.90); Lymphocytes Percent Auto 20.6 % (20-44); Mean Corpuscular HGB Conc 36 gm/dL (32-36); Mean Corpuscular Hemoglobin 35 pg (26-34); Mean Corpuscular Volume 99 fL (80-100); Monocytes Percent Auto 13.4 % (0.0-11.0); Neutrophils Absolute Auto 3.79 K/uL (1.7-7.0); Neutrophils Percent Auto 64.4 % (42.0-72.0); Platelet Count* 161 K/uL (140-440); RDW Coefficient of Variation % 11.5 % (11.5-15.5); Red Blood Count 2.91 m/uL (4.00-5.20); White Blood Count* 5.88 K/uL (4.50-11.00)
[2024-06-24 06:23] LABS: Slide Review Reflex No
--- NOTE | 2024-06-24 06:28 | PC.NURSE ---
End of shift note : Pt alert & oriented x 4 and able to make needs known. IV to R AC patent and SL. Pt independent with transferring/ambulation. VSS and pt has been afebrile. Pt continent of bladder. She has been denying pain when asked throughout the shift. Blood glucose of 153 at HS. Pt remains on IV ABX. Call light within reach. Pt remains compliant with 1500 mL FR.
[2024-06-24 06:29] LABS: Albumin* 4.5 g/dL (3.3-5.0)
[2024-06-24 06:30] LABS: Chloride* 97 mmol/L (96-114); Potassium* 4.7 mmol/L (3.6-5.1); Sodium* 126 mmol/L (135-149)
[2024-06-24 06:32] LABS: Bilirubin Total* 0.5 mg/dL (0.1-1.5); Creatinine* 1.8 mg/dL (0.5-1.5); Est. Creatinine Clearance* 28.78; Estimated Glomerular Filt Rate 31 ml/min
[2024-06-24 06:33] LABS: Alanine Aminotransferase* 21 U/L (4-35); Alkaline Phosphatase* 66 U/L (40-150); Anion Gap 9 mEq/L (7-15); Aspartate Amino Transferase* 31 U/L (12-35); Blood Urea Nitrogen* 21 mg/dL (7-30); Calcium* 9.4 mg/dL (8.4-10.6); Carbon Dioxide* 20 mmol/L (20-32); Glucose* 131 mg/dL (60-115); Total Protein* 6.8 g/dL (6.0-8.3)
[2024-06-24 07:00] VITALS: BP 134/78; PULSE 68; RESP 16; TEMP 36.7; O2SAT 98; O2SAT 99
[2024-06-24] MEDS: ASPIRIN 81 MG TAB.CHEW PO (10:55)
[2024-06-24] MEDS: cephALEXin 500 MG CAPSULE 1000 MG PO ×2 (10:55→20:55)
[2024-06-24] MEDS: MAGNESIUM OXIDE 400 MG TABLET PO (10:55)
[2024-06-24] MEDS: CYANOCOBALAMIN (VITAMIN B-12) 500 MCG TABLET 1000 MCG PO (10:55)
[2024-06-24] MEDS: carvediloL 25 MG TABLET PO ×2 (10:56→20:55)
[2024-06-24 11:00] VITALS: BP 140/83; PULSE 69; RESP 16; TEMP 36.3; O2SAT 100
[2024-06-24] MEDS: SODIUM CHLORIDE 0.9 % (FLUSH) 10 ML SYRINGE 5 ML IVF ×2 (11:01→20:55)
--- NOTE | 2024-06-24 11:06 | PM.IMPN1 ---
Progress Note: A&P Assessment and plan (1) Acute hyponatremia: Problem details: - Hyponatremia, DDx primary polydipsia v/s SIADH. - overcorrected 06/23 - requiring D5W, rate of correction improved -126 this morning; 130 baseline (why low? HCTZ, polydipsia?) -continue water restriction, off IV fluids, encourage protein supplementation -recheck with discharge goal 130 Status: Acute (2) LEVY (acute kidney injury): Problem details: - LEVY likely 2/2 UTI, improving SCr 2.5 -> 2.1 --> 1.8 - Cont holding metformin, lisinopril and hydrochlorothiazide. Status: Acute (3) Acute UTI: Problem details: -acute on chronic; urology referral at discharge -changing ceftiaxone to oral keflex. first doses in the admitted setting due to concerning allergy list Status: Acute (4) Recurrent UTI: Problem details: - as above in #3 Status: Chronic (5) Type 2 diabetes mellitus, without long-term current use of insulin: Problem details: - Due to LEVY Continue hold on metformin. - Cont insulin sliding scale. Status: Chronic (6) Primary hypertension: Problem details: Due to LEVY, cont holding lisinopril and hydrochlorothiazide. Status: Chronic (7) Mild persistent asthma: Problem details: Not symptomatic, continue QVAR and use albuterol as needed Status: Chronic Subjective Date Seen: 06/24/24 Interval history: Daily Progress Note - Hospital Medicine Day #: 3 CC: nausea/fatigue --> severe hyponatremia, LEVY, UTI 24 HOUR UPDATE: feeling much improved. more energy. eating and drinking better. up and walking the halls. Notable Labs, Micro, Rads, Interventions: Afebrile Hemoglobin has drifted down to 10.2, no obvious bleeding Sodium is up to 126, she continues on a 1500 mL fluid restriction Other electrolytes are normal Renal function is improving. Elevated creatinine that started at 2.5 is down to 1.8. His baseline is 1.2 Liver function is normal The 06/22 urine culture is reviewed Objective: looks well, interviewed while in her bedside chair, next to her. Vitals: see above Lungs: Clear. Cardiac: S1S2. Disposition/Potential discharge - Home within 24 hours Today I spent 50minutes seeing the patient, reviewing Expanse and EPIC notes/diagnostics, discussing the care plan with our care time that includes social work, PT/OT, pharmacy, RT, penitentiary and documenting my impressions and plan in the medical record. Exam Const: Vital Signs, click to edit/add: Vital Signs - 24 hr 06/23/24 15:00 06/23/24 15:00 06/23/24 15:00 Temperature 97.4 F L Pulse Rate [Pulse Oximeter] 70 71 Respiratory Rate 16 16 16 Blood Pressure [Le ft Arm] 113/64 Pulse Oximetry 100 100 Oxygen Delivery Me thod Room Air Room Air 06/23/24 17:00 06/23/24 20:10 06/23/24 23:00 Temperature 97.8 F 98.2 F 98.4 F Pulse Rate [Pulse Oximeter] 71 69 72 Respiratory Rate 18 18 16 Blood Pressure [Le ft Arm] 121/75 128/64 149/78 H Pulse Oximetry 98 99 98 Oxygen Delivery Me thod Room Air Room Air Room Air 06/23/24 23:00 06/23/24 23:00 06/24/24 03:00 Temperature 98.1 F Pulse Rate [Pulse Oximeter] 72 78 Respiratory Rate 16 16 16 Blood Pressure [Le ft Arm] 145/70 H Pulse Oximetry 98 98 Oxygen Delivery Me thod Room Air Room Air 06/24/24 07:00 06/24/24 07:00 06/24/24 07:00 Temperature 98.1 F Pulse Rate [Pulse Oximeter] 68 68 Respiratory Rate 16 16 16 Blood Pressure [Le ft Arm] 134/78 Pulse Oximetry 99 98 Oxygen Delivery Me thod Room Air Room Air Labs Labs: Laboratory Results - last 24 hr 06/23/24 06/23/24 06/24/24 12:16 16:08 05:45 WBC 5.88 RBC 2.91 L Hgb 10.2 L Hct 28.7 L MCV 99 MCH 35 H MCHC 36 RDW Coeff of Celine 11.5 Plt Count 161 Neut % (Auto) 64.4 Lymph % (Auto) 20.6 [place] % (Auto) 13.4 H Eos % (Auto) 0.9 Baso % (Auto) 0.2 Neut # (Auto) 3.79 Lymph # (Auto) 1.21 [place] # (Auto) 0.80 Eos # (Auto) 0.05 Baso # (Auto) 0.01 Abs Immat Gran (auto) 0.03 Imm/Tot Granulo (auto) 0.5 Sodium 126 L 123 L* 126 L Potassium 4.7 Chloride 97 Carbon Dioxide 20 Anion Gap 9 BUN 21 Creatinine 1.8 H Estimated Creat Clear 28.78 Estimated GFR 31 Glucose 131 H Calcium 9.4 Total Bilirubin 0.5 AST 31 ALT 21 Alkaline Phosphatase 66 Total Protein 6.8 Albumin 4.5
[2024-06-24 12:02] LABS: Iron* 83 ug/dL (37-170)
[2024-06-24 12:11] LABS: Percent Iron Saturation 23 % (20-50); Total Iron Binding Capacity 369 ug/dL (265-497)
[2024-06-24 12:55] LABS: Vitamin B12* > 1000 pg/mL (243-894)
[2024-06-24 12:56] LABS: Appearance Urine Clear (Clear); Bilirubin Urine Negative (Negative); Blood Urine Trace-intact (Negative); Color Urine Yellow (Yellow); Glucose Urine Trace (Negative); Ketones Urine Negative (Negative); Leukocyte Esterase Urine Negative (Negative); Nitrite Urine Negative (Negative); Protein Urine Negative (Negative); Specific Gravity Urine 1.015 (1.000-1.030); Urobilinogen Urine 0.2 (0.2-1.0)
[2024-06-24 13:09] LABS: Bacteria Urine Few; RBC Urine 0-2 (0-2); Squamous Epithelial Cell Urine Few (None-Few); WBC Urine 0-2 (0-5)
[2024-06-24 15:57] VITALS: BP 145/74; PULSE 67; RESP 16; TEMP 36.4; O2SAT 97
[2024-06-24] MEDS: INSULIN ASPART 100 UNIT/ML SUBCUT ×2 (17:39→20:55)
[2024-06-24 19:00] VITALS: BP 186/77; PULSE 75; RESP 16; TEMP 36.7; O2SAT 100
[2024-06-24 19:25] LABS: Albumin* 4.6 g/dL (3.3-5.0); Chloride* 99 mmol/L (96-114); Potassium* 4.9 mmol/L (3.6-5.1); Sodium* 128 mmol/L (135-149)
[2024-06-24 19:27] LABS: Creatinine* 1.7 mg/dL (0.5-1.5); Est. Creatinine Clearance* 30.47; Estimated Glomerular Filt Rate 33 ml/min
[2024-06-24 19:28] LABS: Anion Gap 9 mEq/L (7-15); Blood Urea Nitrogen* 25 mg/dL (7-30); Calcium* 9.5 mg/dL (8.4-10.6); Carbon Dioxide* 20 mmol/L (20-32); Glucose* 201 mg/dL (60-115); Phosphorus* 3.1 mg/dL (2.5-4.5)
[2024-06-24 22:49] VITALS: BP 170/72; PULSE 66; RESP 16; TEMP 36.6; O2SAT 98
[2024-06-25 02:18] VITALS: BP 172/73; PULSE 69; RESP 16; TEMP 36.7; O2SAT 99
--- NOTE | 2024-06-25 05:10 | PC.NURSE ---
Shift note: Pt is doing well. Ambulated independently in room. Pleasant, alert and oriented. 1500 fluid restriction maintained. Pt had adequate sleep. Due treatment given.
[2024-06-25] MEDS: OMEPRAZOLE 20 MG CAPSULE DR 40 MG PO (06:40)
[2024-06-25 06:57] LABS: Basophils Absolute Auto 0.01 K/uL (0.00-0.30); Basophils Percent Auto 0.2 % (0.0-3.0); Eosinophils Absolute Auto 0.09 K/uL (0.00-0.50); Eosinophils Percent Auto 1.6 % (0.0-7.0); Hematocrit 29.2 % (33.0-51.0); Hemoglobin* 10.5 gm/dL (12.0-16.0); Immature Granulocytes Abs Auto 0.01 K/uL (0.00-0.30); Immature Granulocytes Pct Auto 0.2 %; Lymphocytes Absolute Auto 1.21 K/uL (0.90-2.90); Lymphocytes Percent Auto 21.2 % (20-44); Mean Corpuscular HGB Conc 36 gm/dL (32-36); Mean Corpuscular Hemoglobin 36 pg (26-34); Mean Corpuscular Volume 99 fL (80-100); Monocytes Percent Auto 12.8 % (0.0-11.0); Neutrophils Absolute Auto 3.66 K/uL (1.7-7.0); Platelet Count* 162 K/uL (140-440); RDW Coefficient of Variation % 11.4 % (11.5-15.5); Red Blood Count 2.94 m/uL (4.00-5.20); White Blood Count* 5.71 K/uL (4.50-11.00)
[2024-06-25 07:00] VITALS: BP 143/83; PULSE 59; RESP 16; TEMP 36.8; O2SAT 98
[2024-06-25 07:20] LABS: Albumin* 4.5 g/dL (3.3-5.0)
[2024-06-25 07:23] LABS: Alkaline Phosphatase* 63 U/L (40-150); Aspartate Amino Transferase* 85 U/L (12-35); Bilirubin Direct* 0.2 mg/dL (0.0-0.5); Bilirubin Total* 0.5 mg/dL (0.1-1.5); Total Protein* 6.9 g/dL (6.0-8.3)
[2024-06-25 07:24] LABS: Alanine Aminotransferase* 20 U/L (4-35); Slide Review Reflex No
[2024-06-25] MEDS: ASPIRIN 81 MG TAB.CHEW PO (08:44)
[2024-06-25] MEDS: CYANOCOBALAMIN (VITAMIN B-12) 500 MCG TABLET 1000 MCG PO (08:44)
[2024-06-25] MEDS: carvediloL 25 MG TABLET PO (08:44)
[2024-06-25] MEDS: MAGNESIUM OXIDE 400 MG TABLET PO (08:44)
[2024-06-25] MEDS: SODIUM CHLORIDE 0.9 % (FLUSH) 10 ML SYRINGE 5 ML IVF ×2 (08:45→11:17)
[2024-06-25] MEDS: cephALEXin 500 MG CAPSULE 1000 MG PO (08:56)
[2024-06-25 09:40] LABS: Chloride* 99 mmol/L (96-114); Potassium* 4.7 mmol/L (3.6-5.1); Sodium* 126 mmol/L (135-149)
[2024-06-25 09:43] LABS: Anion Gap 9 mEq/L (7-15); Blood Urea Nitrogen* 23 mg/dL (7-30); Carbon Dioxide* 18 mmol/L (20-32); Creatinine* 1.4 mg/dL (0.5-1.5); Estimated Glomerular Filt Rate 41 ml/min; Glucose* 132 mg/dL (60-115)
[2024-06-25 09:44] LABS: Calcium* 9.6 mg/dL (8.4-10.6)
[2024-06-25 11:00] VITALS: BP 144/81; PULSE 66; RESP 18; TEMP 36.4; O2SAT 100
[2024-06-25] MEDS: FUROSEMIDE 10 MG/ML inj 20 MG IVP (11:16)
[2024-06-25] MEDS: INSULIN ASPART 100 UNIT/ML SUBCUT (12:40)
--- NOTE | 2024-06-25 14:23 | PM.DS1 ---
DS: Providers Provider Date Seen: 06/25/24 Date of admission: 06/22/24 22:07 Primary care physician: Rip Reynaga MD Admitting Clinician: Radha Maravilla MD Attending Physician on discharge: Ron Jones MD Date of Discharge: 06/25/24 DS: Diagnosis Discharge Diagnosis (1) Acute hyponatremia: Status: Acute Problem details: Patient admitted with a sodium 117. Na 130 at discharge. Suspected to be due to combination of hydrochlorothiazide treatment for hypertension which started recently and possible excess free water intake. Initially sodium corrected quickly and needed to be slowed. Now stabilized. Remain off hydrochlorothiazide. Replace with torsemide (2) LEVY (acute kidney injury): Status: Acute Problem details: Acute kidney injury on admission with a creatinine of 2.5 compared to baseline of 1.3. Creatinine 1.4 on the day of discharge. (3) Acute UTI: Status: Acute Problem details: Patient has UTI on admission. She reports no specific urinary symptoms, dysuria, frequency, urgency, flank pain, fever. She reports chronic recurrent urinary infections which are often asymptomatic. Microscopic urinalysis showed 50-100 white cells per high-power field. Urine culture grew E coli greater than 100,000 colonies. Resistant to ampicillin. Sensitive to cefazolin and quinolones. Treated with ceftriaxone and then cephalexin on discharge (4) Recurrent UTI: Status: Chronic Problem details: - as above in #3 (5) Type 2 diabetes mellitus, without long-term current use of insulin: Status: Chronic Problem details: Blood sugars under fair control. Metformin held during hospital stay and resumed at discharge (6) Primary hypertension: Status: Chronic Problem details: Lisinopril and hydrochlorothiazide held during the hospital stay. Lisinopril plus torsemide at discharge. (7) Mild persistent asthma: Status: Chronic Problem details: Not symptomatic, continue QVAR and use albuterol as needed DS: Summary Hospital Course Hospital Course: Ly Boucher is a 64 year old female with a history of type 2 diabetes mellitus, hypertension, asthma, and recurrent UTI who was seen in urgent care today for not feeling well and was found to have a sodium of 117. She was sent to the emergency department. She tells me that she recently saw Dr. Reynaga for a well visit and was feeling okay at the time with no urinary symptoms. She says a urine culture was done because she has a history of recurrent urinary tract infections. She saw Urology last year and had been on Bactrim for 90 days, but continued to get urinary tract infections after that. The urine culture done at her recent well visit was abnormal and she was started on Bactrim. The culture recently came back as E coli that was resistant to Bactrim. She has multiple medication allergies including several different antibiotics. She says the clinic called yesterday and switched her to ciprofloxacin, but she could not take it because she has a history of anaphylaxis with that. Today she felt nauseated and fatigued so she went urgent care. Also of note is that she asks for water several times during my interview saying that she was really thirsty. She continued to ask for water despite me telling her that we need to have her on a fluid restriction for hyponatremia. She has been told me that she normally drinks a lot of water and was drinking even more water recently because of the urinary tract infection. She has a history of hyponatremia that is chronically around 130. She has never been hospitalized for this. She denies confusion although she seemed to have trouble giving history and would often mix things up or answering similar questions differently. Patient was treated for UTI with ceftriaxone. Culture grew E coli sensitive to cephalosporins and quinolones. She had no symptoms of urinary tract infection during her hospital stay. She was given normal saline for her hyponatremia. Sodium initially corrected too quickly and so she received D5W to slow the correction. She otherwise reports feeling no symptoms of illness. Time Spent with Patient Time attestation: Total time spent providing and/or coordinating discharge services: 45 minutes Exam Narrative: Exam Narrative: She is alert and appears in no distress. Speech is normal. Respirations are unlabored. Const: Vital Signs, click to edit/add: Vital Signs - 24 hr 06/24/24 15:57 06/24/24 15:57 06/24/24 19:00 Temperature 97.6 F 98.1 F Pulse Rate [Pulse Oximeter] 67 75 Respiratory Rate 16 16 16 Blood Pressure [Le ft Arm] 145/74 H 186/77 H Pulse Oximetry 97 97 100 Oxygen Delivery Me thod Room Air Room Air Room Air 06/24/24 22:49 06/24/24 22:49 06/24/24 22:49 Temperature 97.9 F Pulse Rate [Pulse Oximeter] 66 66 Respiratory Rate 16 16 16 Blood Pressure [Le ft Arm] 170/72 H Pulse Oximetry 98 98 Oxygen Delivery Me thod Room Air Room Air 06/25/24 02:18 06/25/24 07:00 06/25/24 07:00 Temperature 98.1 F 98.3 F Pulse Rate [Pulse Oximeter] 69 59 L Respiratory Rate 16 16 16 Blood Pressure [Le ft Arm] 172/73 H 143/83 H Pulse Oximetry 99 98 98 Oxygen Delivery Me thod Room Air Room Air Room Air 06/25/24 11:00 Temperature 97.5 F L Pulse Rate [Pulse Oximeter] 66 Respiratory Rate 18 Blood Pressure [Le ft Arm] 144/81 H Pulse Oximetry 100 Oxygen Delivery Me thod Room Air Documenting provider has reviewed patient's vital signs: yes DS: Data Data Completed and Pending Labs on day of discharge: Labs from last 24 hours 06/25/24 06/25/24 06/24/24 09:33 06:22 19:05 WBC 5.71 RBC 2.94 L Hgb 10.5 L Hct 29.2 L MCV 99 MCH 36 H MCHC 36 RDW Coeff of Celine 11.4 L Plt Count 162 Neut % (Auto) 64.0 Lymph % (Auto) 21.2 [place] % (Auto) 12.8 H Eos % (Auto) 1.6 Baso % (Auto) 0.2 Neut # (Auto) 3.66 Lymph # (Auto) 1.21 [place] # (Auto) 0.70 Eos # (Auto) 0.09 Baso # (Auto) 0.01 Abs Immat Gran (auto) 0.01 Imm/Tot Granulo (auto) 0.2 Sodium 126 L 128 L Potassium 4.7 4.9 Chloride 99 99 Carbon Dioxide 18 L 20 Anion Gap 9 9 BUN 23 25 Creatinine 1.4 1.7 H Estimated Creat Clear 37.00 30.47 Estimated GFR 41 33 Glucose 132 H 201 H Calcium 9.6 9.5 Phosphorus 3.1 Total Bilirubin 0.5 Direct Bilirubin 0.2 AST 85 H ALT 20 Alkaline Phosphatase 63 Total Protein 6.9 Albumin 4.5 4.6 Lab Acknowledgement Test Added Preliminary micro results at discharge 06/24/24 11:25 Urine Culture - Preliminary Urine,Clean Catch No growth. Discharge Plan Discharge Disposition: Home, Self-Care Date of Admission: 06/22/24 22:07 Attending Provider on Discharge: Serjio Jones Primary Care Provider: Rip Reynaga Condition: Stable Anticipated Discharge Date/Time: 06/25/24 16:00 Discharge Medications: New cephalexin 500 mg Capsule 1,000 mg PO BID Qty: 20 0RF lisinopril 20 mg tablet 20 mg PO DAILY Qty: 30 0RF torsemide 10 mg tablet 10 mg PO DAILY Qty: 30 0RF Continued Qvar RediHaler 80 mcg/actuation HFA aerosol breath activated 1 inh inhalation BID Qty: 31.8 3RF albuterol sulfate 90 mcg/actuation HFA aerosol inhaler 2 puff inhalation Q4-6H PRN (Reason: shortness of breath or wheezing) Qty: 8.5 5RF rosuvastatin 10 mg tablet 10 mg PO QDAY magnesium oxide 400 mg (241.3 mg magnesium) tablet 400 mg PO QDAY Qty: 90 3RF estradiol 0.01 % (0.1 mg/gram) cream 1 appful vaginal .QOD semaglutide 2 mg/dose (8 mg/3 mL) pen injector 1.5 mg subcut QWEEK cranberry 500 mg capsule 500 mg PO DAILY Rx Instructions: administer with a meal albuterol sulfate 2.5 mg /3 mL (0.083 %) solution for nebulization 2.5 mg inhalation Q4H PRN epinephrine 0.3 mg/0.3 mL auto-injector 0.3 mg IM ONCE Rx Instructions: as a single dose; may repeat once cyanocobalamin (vitamin B-12) 1,000 mcg tablet 1,000 mcg PO QDAY aspirin [Aspirin Childrens] 81 mg tablet,chewable 81 mg PO QDAY metronidazole 0.75 % cream 1 applic topical BID PRN ondansetron 8 mg tablet,disintegrating 8 mg PO Q12H PRN (Reason: nausea and vomiting) Qty: 30 2RF carvedilol 25 mg tablet 25 mg PO BID Qty: 180 3RF Rx Instructions: must administer with a meal/food metformin 500 mg tablet extended release 24 hr 500 mg PO BID Qty: 180 1RF Discontinued lisinopril-hydrochlorothiazide 20-25 mg tablet 1 tab PO QDAY Qty: 90 0RF Patient Comments: Has been taking lisinopril for a long time, just started HCTZ 06/22/24 ciprofloxacin HCl [Cipro] 500 mg tablet 500 mg PO BID Qty: 14 0RF Discharge Orders: Discharge Order (Routine); Ordered 06/25/24 Ordered By: Serjio Jones Activity Level: No Restrictions Discharge Diet: Diabetic Follow Up Appointments: Rip Reynaga MD [Primary Care Provider] - (Follow-up next week for recheck of symptoms, blood pressure and blood test, basic metabolic panel) Forms: [employer] Info Instructions
--- NOTE | 2024-06-25 15:19 | PC.NURSE ---
Shift 8062-6000: pt is pleasant, alert, oriented and vitally stable. She is on a 1500 fluid restriction. Sodium level is 126 at 0600, retake at 1500 to see if levels rise. Pt is IND for ambulation. She is diabetic, blood glucose was 139 this am and 231 before lunch, see mar for interventions. ?
[2024-06-25 15:21] VITALS: BP 130/71; PULSE 66; RESP 18; TEMP 36.8; O2SAT 100
[2024-06-25 15:37] LABS: Potassium* 4.6 mmol/L (3.6-5.1); Sodium* 130 mmol/L (135-149)
--- NOTE | 2024-06-25 16:43 | PC.NURSE ---
Discharge: Patient pleasant and cooperative. Patient vitally stable, lungs clear, BS WNL, IV removed, catheter intact. Patient independent in room and denies pain. Patient tolerating regular diet and urinating well. Patient signed belongings sheet and discharge paper work. Patient had no further questions regarding discharge. Patient had no further questions regarding discharge. Patient left the floor independent by foot to home at 1640.
== END 2024-06-25 16:40 | disposition home or self-care (01) | DRG 641 ==
LOC: ED 19:52 → MEDSURG 21:05
PROVIDERS: Family Medicine; Student in an Organized Health Care Education/Training Program; Admitting Provider Family Medicine; Emergency Provider Student in an Organized Health Care Education/Training Program; PCP Family Medicine; Visit Provider Family Medicine
DX: E87.1 Hypo-osmolality and hyponatremia (principal); N17.9 Acute kidney failure, unspecified; N39.0 Urinary tract infection, site not specified; B96.20 Unspecified Escherichia coli [E. coli] as the cause of diseases classified elsewhere; I10 Essential (primary) hypertension; J45.30 Mild persistent asthma, uncomplicated; E11.9 Type 2 diabetes mellitus without complications; Z79.84 Long term (current) use of oral hypoglycemic drugs
CPT/HCPCS: 36415; 80048; 80053; 80069; 80076; 81001; 82607; 82962; 83540; 83550; 83735; 84132; 84295; 85025; 87086; 93005; 99283; 99285; A9270; J0696; J1940; J2765; J7030; J7070

== ENCOUNTER 2024-07-01 14:51 | Outpatient (CLI) | payer MEDICARE, SELFPAY | END 2024-07-01 14:52 | disposition home or self-care (01) | LOC: NFLDREF 14:51 | PROVIDERS: PCP Family Medicine; Visit Provider Family Medicine | DX: I10 Essential (primary) hypertension (principal); E87.1 Hypo-osmolality and hyponatremia; N17.9 Acute kidney failure, unspecified | CPT/HCPCS: 80048 ==

== ENCOUNTER 2024-07-12 09:50 | Outpatient (CLI) | payer MEDICARE, SELFPAY ==
--- OUTSIDE RECORDS SUMMARY | 2024-07-16 15:32 | XMS_ITS | Encounter Summary ---
Author Organization [facility] Address [address] [place] [address] Care Team Providers Care Solid Waste Collector Name Role Phone Elsewhere, Pcp Primary Care Provider Unavailabl e Reason for Visit * Reason Comments Skin Check * Appointment Request (Routine) - Closed Specialty Diagnoses / Procedures Referred By Cindy t Referred To Contact Dermatology Referral ID Status Reason Start Date Expiration Date Visits Re quested Visits Authorized [id number] Closed 01/02/2024 01/01/2025 1 1 Encounter Details Date Type Department Care Team (Late st Contact Info) Description 06/22/2024 2:00 PM CDT Office Visit Department of Dermatology in [address] [phone] Mikhail Delgado M.D. [address] [place] [phone] Keratosis Actinic (Primary Dx); Nevi Multiple; Keratosis [...] living? No 04/22/2023 Nutrition Answer Date Recorded On average, how many serving s of [...] your living situation today? I have a [facility] place to live 04/22/2023 Sex [...] extremities. My scribe (Dejah) served as a interactive media specialist for the entirety of the exam. Examination [...] the content. By signing my name below, I, Dejah Pearce, attest that this documentation has been prepared underthe direction and in the presence of Mikhail Delgado M.D. Electronically Signed: branden White. 06/22/2024. 2:20 PM CDT. I, Mikhail Delgado M.D., personally performed the services described in [...] Seborrheic documented in this encounter Care Teams Solid Waste Collector Relationship Specialty Start Date End Date Elsewhere, Pcp PCP - General Internal Medicine 02/23/23 documented as of this encounter
--- OUTSIDE RECORDS SUMMARY | 2024-07-16 15:32 | XMS_ITS | Referral Summary ---
Author Organization [facility] Address [address] [place] [address] Care Team Providers Care Oracle Hyperion Consultant Name Role Phone Elsewhere, Pcp Primary Care Provider Unavailabl e Source Comments Patient records contain information from all sites at [facility]. For routine questions regarding patient records, call [phone] during business hours, M-F 8:00 AM - 5:00 PM Central Time. Record requests for emergency care only can be directed to [phone] at any time.[facility] Encounters Date Type Department Care Team Description 06/22/2024 2:35 PM CDT Ancillary Procedure Department of Dermatology 06/22/2024 2:00 PM CDT Office Visit Department of Dermatology in [address] [phone] Mikhail Delgado M.D. Keratosis Actinic (Primary Dx); [...] your living situation today? I have a [facility] place to live 04/22/2023 Sex and [...] on file Medical Devices Implanted Type Area Orthopedic Nurse Device Identifier Shelf Expiration Date Model / [...] CDT Bob Alvarado M.D. LAB BLOOD ADD-ON [facility] [address] [place] [id number], [facility] in [address] [address] * (ABNORMAL) Basic Metabolic Panel (03/24/2023 6:49 [...] CDT Chanel Kinsey M.D. LAB BLOOD ADD-ON [facility] [address] [place] [id number], [facility] in [address] [address] * (ABNORMAL) Hemoglobin A1c (02/24/2023 3:40 AM [...] Lori Anderson APRN, C.N.P. LAB BLOOD ADD-ON [facility] [address] [place] [address], [place] [facility] [address] [place] [address] from Last 3 Months or Most Recently Relevant to Health Maintenance Advance Directives For more information, please contact: [phone] * Full Code (Latest Code Status on File) Date Activated Date Inactivated Comments 03/22/2023 10:39 PM 03/24/2023 1:12 PM Question Answer Comments Full Code: Not Discussed Due to: Patient not available * Full Code Date Activated Date Inactivated Comments 02/23/2023 8:26 PM 02/24/2023 8:04 PM Question Answer Comments Full Code: Discussed Care Teams Oracle Hyperion Consultant Relationship Specialty Start Date End Date Elsewhere, Pcp PCP - General Internal Medicine 02/23/23
--- OUTSIDE RECORDS SUMMARY | 2024-07-16 15:32 | XMS_ITS | Encounter Summary ---
Author Organization [facility] Address [address] [place] [address] Care Team Providers Care Solar System Installer Name Role Phone Elsewhere, Pcp Primary Care Provider Unavailabl e Encounter Details Date Type Department Care Team (Late st Contact Info) Description 06/22/2024 2:35 PM CDT Ancillary Procedure Department of Dermatology Social History Tobacco Use Types Packs/Day Years [...] your living situation today? I have a [facility] place to live 04/22/2023 Sex and Gender [...] on filedocumented in this encounter Care Teams Solar System Installer Relationship Specialty Start Date End Date Elsewhere, Pcp PCP - General Internal Medicine 02/23/23 documented as of this encounter
--- OUTSIDE RECORDS SUMMARY | 2024-07-16 15:32 | XMS_ITS | Continuity of Care Document ---
Author Organization [facility] Address [address] [place] [address] Phone Care Team Providers Care Dynamic Etching Processor Name Role Phone ChauNorberto Ruggieroca Unavailable Unavailable Allergies, Adverse Reactions, Alerts Substance Reaction Status Criticality nickel Hives Active No Information ZINC Hives Active No Information Penicillins Active No Information latex Active No Information ciprofloxacin Active No Information Medications Medication Instructions Dosage Effective Dates (start - stop) Status Comments CLARITIN (unknown strength) Not Available - Active HYDROCHLOROTHIAZIDE (unknown strength) Not Available - Active RIOMET (unknown strength) Not Available - Active GLIPIZIDE (unknown strength) Not Available - Active LISINOPRIL (unknown strength) Not Available - Active Procedures [...] tient Visit,Est, Mod [facility], [address], [place], [place], [id number], [place] tel:[phone] [facility] [place] Spondylolisth esis, lumbar region 7 Pelkola Fiordaliza. [facility], [address] [place] [address], [id number] , [place]. tel:[phone] Referring Provider: Galdino Gloria, [facility] [address] [place], [address]. tel:[phone] Office/Outpa tient Visit,Est, Mod [facility], [address] [place] [address], [id number], [place] tel:[phone] [facility] [place] Spondylolisth esis, lumbar regionSpinal stenosis, lumbar region 6 Pelkola Fiordaliza. [facility], [address] [place] [address], [place], [place], [id number] , [place]. tel:[phone] Referring Provider: Galdino Gloria, [facility] [address] [place], [address]. tel:[phone] Office/Outpa tient Visit,Est, Mod [facility], [address] [place] [address], [id number], [place] tel:[phone] [facility] [place] Arthrodesis statusSpinal stenosis, lumbar regionSpondyl olisthesis, lumbar region 6 Tiff Michelle. [facility], [address] [place] [address], [address], [place], [place], [id number] , [place]. tel:[phone] Referring Provider: Galdino Gloria, [facility] [address] [place], [address]. tel:[phone] Office/Outpa tient Visit,Est, Mod [facility], [address], [place], [place], [id number], [place] tel:[phone] [facility] [place] OverweightEss ential (primary) hypertensionS shahzad stenosis, lumbar regionSpondyl olisthesis, lumbar regionArthrod esis status Tiff Michelle. [facility], [address] [place] [address], [address], [place], [place], [id number] , [place]. tel:[phone] Referring Provider: Galdino Gloria, [facility] [address] [place], [address]. tel:[phone] [facility], [address], [place], [id number], [place] tel:[phone] [facility] [place] Spondylolisth esis, lumbar regionSpinal stenosis, lumbar region Pelkola Fiordaliza. [facility], [address] [place] [address] [address], [place], [place], [id number] , [place]. tel:[phone] Referring Provider: Galdino Gloria, [facility] [address] [place], [address]. tel:[phone] [facility], [address], [place], [place], [id number], [place] tel:[phone] [facility] [place] OverweightSpo ndylolisthesi s, lumbar regionSpondyl olisthesis, lumbar region Tiff Michelle. [facility], [address] [place] [address], [address], [place], [place], [id number] , [place]. tel:[phone] [facility], [address] [place] [address], [id number], [place] tel:[phone] [facility] No Information 3201 5 Tiff Michelle. [facility], [address], [address], [place], [place], [id number] , [place]. tel:[phone] Referring Provider: Galdino Gloria, [facility] [address] [place], [address]. tel:[phone] Office/Outpa tient Visit,Est, Mod [facility], [address], [place], [place], [id number], [place] tel:[phone] [facility] [place] OverweightEss ential (primary) hypertensionS shahzad stenosis, lumbar regionSpondyl olisthesis, lumbar regionRadicul opathy, lumbar region Nov-0 2-201 5 Tiff Michelle. [facility], [address] [place] [address], [address], [place], [place], [id number] , [place]. tel:[phone] Referring Provider: Galdino Gloria, [facility] [address] [place], [address]. tel:[phone] Office/Outpa tient Visit,New, High [facility], [address], [place], [place], [id number], [place] tel:[phone] [facility] Thoracic spondylosis with myelopathySpi nal stenosis of lumbar region with neurogenic claudicationA cquired spondylolisth esis Sep-2 3-201 5 Pelkola Fiordaliza. [facility], [address] [place] [address] [address], [place], [place], [id number] , [place]. tel:[phone] Referring Provider: Galdino Gloria, [facility] [address] [place], [address]. tel:[phone] Office consultation , low Z [facility], [address], [place], [address], [place] tel:[phone] [facility] [place] No Information 6 Tiff Michelle. [facility], [address] [place] [address], [address], [place], [place], [id number] , . tel:[phone] Referring Provider: Davin Obando, [facility] [address] [facility], [place], [address]. tel:[phone] Family History Family Member Type Diagnosis Age At Onset No Information Payers Payer name Insurance type Covered republican ID Donnie reynaga(s) BCBS [id number] [facility] [id number] Social History Type Description Quantity Date Captured [...] No Information Instructions Date Instruction Additional Infor april Weight management: I nstructed to return to General Practitioner timeframe: 1 Month. Related to Overweight Weight Management Education Rela jannette to Overweight Instructed to return to General Practitioner timeframe: 1 Month. Related to Unspecified Essential Hypertension Blood Pressure Management Relate d to Unspecified Essential Hypertension Weight management: I nstructed to return to General Practitioner timeframe: 1 Month. Related to Overweight Weight Management Education Rela jannette to Overweight Refer to Referral to General Practitioner timeframe: 1 Month. Related to Unspecified Essential Hypertension Exercise education Related to Un specified Essential Hypertension Weight management: R efer to Referral to General Practitioner timeframe: 1 Month. Related to Overweight Weight Management Related to Ove rweiaydet Assessments Type Assessment Date assessment Spondylolisthesis, lumbar region Patient Care Teams Name Effective Dates (start - stop) Status Members No Information
--- OUTSIDE RECORDS SUMMARY | 2024-07-16 15:32 | XMS_ITS | Data Portability ---
Author Organization [facility], [facility] isabel Address [address] [place] [address] Care Team Providers Care Nurse First Assist Name Role Phone BERTHA THOMPSON Referring Provider Assessment No assessment recorded. Plan of Treatment Reminders Order Date Submit Date Provider Last Modified By Organization Details Last Modified Time Details Appointments ESTABLISH ED 20 2023 09:20A M Not available Not available Not available Lab urinalysi s, dipstick 2022 023 [facility], [address], [address], [place], [address], 06/18/2023 09:24:09 urinalysi s, microscop ic 2022 023 [facility], [address], [address], [place], [address], 08/20/2023 13:00:25 urinalysi s, dipstick 2022 023 [facility], [address], [address], [place], [address], 08/20/2023 13:00:23 culture, urine 2022 023 [facility], [address], [address], [place], [address], 08/22/2023 09:11:01 Referral None recorded. Procedures None recorded. Surgeries None recorded. Imaging None recorded. Medication Orders Estrace 0.01% (0.1 mg/gram) vaginal cream 2022 023 [id number] [facility], [address] [place], [address], 02/26/2024 10:35:28 Bactrim 400 mg-80 mg tablet 2023 024 [email or web address] [facility] [address], [address] [place], [address], 03/01/2024 10:46:17 Patient TargetsNo targets recorded. Patient Instructions Encounter Date Encounter Id Patient Instructions Last Modified By Organization Details Last Modified Time 06/18/2023 [id number] Recurrent urinar y tract infections (UTIs): -Discussed [...] arise. rbourget Not available 06/18/2023 10:00:33 08/20/2023 [id number] Recurrent urinar y tract infections (UTIs): -She [...] needed. rbourget Not available 08/20/2023 13:17:59 03/01/2024 [id number] Recurrent urinar y tract infections (UTIs): -UC results negative from 02/26 with [facility] [place]. -Test and treat as symptomatic for infection, [...] Name Description Value Unit Range Abnormal Flag Note LastModifiedBy Organization Detail LastModifiedTime 06/18/2006/18/2023 UA WITHO UT MICRO - CS URISC AN blood - uriscan NEGATI VE negati ve Not Available [facility] [address] [facility] [address], [place], [address], 06/18/2023 09:24:09 06/18/2006/18/2023 UA WITHO UT MICRO - CS URISC AN bilirubin - uriscan NEGATI VE mg/dL negati ve Not Available [facility] [address] [facility] [address], [place], [address], 06/18/2023 09:24:09 06/18/20 23 06/18/2023 UA WITHO UT MICRO - CS URISC AN urobilinogen - uriscan NORMAL mg/dL normal Not Available [facility] [address] [facility] [address], [place], [address], 06/18/2023 09:24:09 06/18/20 23 06/18/2023 UA WITHO UT MICRO - CS URISC AN ketones - uriscan NEGATI VE mg/dL negati ve Not Available [facility] [address] [place] [address] [address], [place], [address], 06/18/2023 09:24:09 06/18/20 23 06/18/2023 UA WITHO UT MICRO - CS URISC AN protein - uriscan NEGATI VE mg/dL negati ve Not Available [facility] [address] [place] [address] [address], [place], [address], 06/18/2023 09:24:09 06/18/20 23 06/18/2023 UA WITHO UT MICRO - CS URISC AN nitrites - uriscan NEGATI VE negati ve Not Available [facility] [address] [place] [address] [address], [place], [address], 06/18/2023 09:24:09 06/18/20 23 06/18/2023 UA WITHO UT MICRO - CS URISC AN glucose - uriscan NEGATI VE mg/dL negati ve Not Available [facility] [address] [place] [address] [address], [place], [address], 06/18/2023 09:24:09 06/18/20 23 06/18/2023 UA WITHO UT MICRO - CS URISC AN pH - uriscan 6.50 5.00-9 .00 Not Available [facility] [address] [place] [address] [address], [place], [address], 06/18/2023 09:24:09 08/16/06/18/2023 UA WITHO UT MICRO - CS URISC AN sp. gravity - uriscan 1.02 1.01-1 .03 Not Available [facility] [address] [place] [address] [address], [place], [address], 06/18/2023 09:24:09 06/18/20 23 06/18/2023 UA WITHO UT MICRO - CS URISC AN leukocytes - uriscan NEGATI VE negati ve Not Available [facility] [address] [place] [address] [address], [place], [address], 06/18/2023 09:24:09 06/18/20 23 06/18/2023 UA WITHO UT MICRO - CS URISC AN color - uriscan YELLOW lt. yellow ;yello w Not Available [facility] [address] [place] [address] [address], [place], [address], 06/18/2023 09:24:09 06/18/20 23 06/18/2023 UA WITHO UT MICRO - CS URISC AN clarity - uriscan CLEAR clear Not Available [facility] [address] [place] [address] [address], [place], [address], 06/18/2023 09:24:09 06/18/2006/18/2023 UA WITHO UT MICRO - CS URISC AN total urine volume (mL) 40 /mL ----- ----- ----- ----- ----- ----- ----- ----- ----- ----- ----- ----- ----- ----- ---- *Plea se note the follo wing minim um quant ities for addit ional urine testi ng: - Atypi cals: 3 mL - Cytol ogy: 20 mL - GC/CH : 2 mL - FISH: 30 mL - Atypi cals w/ GC/CH : 5 mL - Cytol ogy PLUS FISH: 50 mL - Urine Cultu re: 3 mL ----- ----- ----- ----- ----- ----- ----- ----- ----- ----- ----- ----- ----- ----- ---- This lab resul t is being provi ded to you and your provi angie at the same time [facility] with the Centu ry Cures Act. Your provi angie may not have had time to revie w and make recom menda tions based on the resul t. Mike awan allow up to one week for provi angie revie w. Not Available [facility] [address] [place] [address] [address], [place], [address], 06/18/2023 09:24:09 08/20/20 23 08/20/2023 UA WITHO UT MICRO - CS URISC AN blood - uriscan LARGE negati ve abnormal Not Available [facility] [address] [place] [address] [address], [place], [address], 08/20/2023 13:00:23 08/20/20 23 08/20/2023 UA WITHO UT MICRO - CS URISC AN bilirubin - uriscan NEGATI VE mg/dL negati ve Not Available [facility] [address] [place] [address], [place], [address], 08/20/2023 13:00:23 08/20/20 23 08/20/2023 UA WITHO UT MICRO - CS URISC AN urobilinogen - uriscan NORMAL mg/dL normal Not Available [facility] [address] [facility] [address], [place], [address], 08/20/2023 13:00:23 08/20/20 23 08/20/2023 UA WITHO UT MICRO - CS URISC AN ketones - uriscan NEGATI VE mg/dL negati ve Not Available [facility] [address] [place] [address], [place], [address], 08/20/2023 13:00:23 08/20/20 23 08/20/2023 UA WITHO UT MICRO - CS URISC AN protein - uriscan NEGATI VE mg/dL negati ve Not Available [facility] [address] [facility] [address], [place], [address], 08/20/2023 13:00:23 08/20/20 23 08/20/2023 UA WITHO UT MICRO - CS URISC AN nitrites - uriscan NEGATI VE negati ve Not Available [facility] [address] [facility] [address], [place], [address], 08/20/2023 13:00:23 08/20/2008/20/2023 UA WITHO UT MICRO - CS URISC AN glucose - uriscan NEGATI VE mg/dL negati ve Not Available [facility] [address] [facility] [address], [place], [address], 08/20/2023 13:00:23 08/20/2008/20/2023 UA WITHO UT MICRO - CS URISC AN pH - uriscan 5.50 5.00-9 .00 Not Available [facility] [address] [facility] [address], [place], [address], 08/20/2023 13:00:23 08/20/20 23 08/20/2023 UA WITHO UT MICRO - CS URISC AN sp. gravity - uriscan <=1.01 1.01-1 .03 Not Available [facility] [address] [facility] [address], [place], [address], 08/20/2023 13:00:23 08/20/2008/20/2023 UA WITHO UT MICRO - CS URISC AN leukocytes - uriscan SMALL negati ve abnormal Not Available [facility] [address] [facility] [address], [place], [address], 08/20/2023 13:00:23 08/20/2008/20/2023 UA WITHO UT MICRO - CS URISC AN color - uriscan YELLOW lt. yellow ;yello w Not Available [facility] [address] [facility] [address], [place], [address], 08/20/2023 13:00:23 08/20/20 23 08/20/2023 UA WITHO UT MICRO - CS URISC AN clarity - uriscan CLEAR clear Not Available [facility] [address] [facility] [address], [place], [address], 08/20/2023 13:00:23 08/20/20 23 08/20/2023 UA WITHO UT MICRO - CS URISC AN total urine volume (mL) 40 /mL ----- ----- ----- ----- ----- ----- ----- ----- ----- ----- ----- ----- ----- ----- ---- *Bailey robledo note the follo wing minim um quant ities for addit ional urine testi ng: - Atypi cals: 3 mL - Cytol ogy: 20 mL - GC/CH : 2 mL - FISH: 30 mL - Atypi cals w/ GC/CH : 5 mL - Cytol ogy PLUS FISH: 50 mL - Urine Cultu re: 3 mL ----- ----- ----- ----- ----- ----- ----- ----- ----- ----- ----- ----- ----- ----- ---- This lab resul t is being provi ded to you and your provi angie at the same time in compl iance with the 21st Centu ry Cures Act. Your provi angie may not have had time to revie w and make recom menda tions based on the resul t. Mike awan allow up to one week for provi angie revie w. Not Available [facility] [address] [facility] [address], [place], [address], 08/20/2023 13:00:23 08/20/20 23 08/20/2023 UA MICRO SCOPI C U-WBC 2 - 5 [hpf] 0 - 2 abnormal Not Available [facility] [address] [facility] [address], [place], [address], 08/20/2023 13:00:25 08/20/20 23 08/20/2023 UA MICRO SCOPI C U-RBC 0 - 2 [hpf] 0 - 2 Not Available [facility] [address] [facility] [address], [place], [address], 08/20/2023 13:00:25 08/20/20 23 08/20/2023 UA MICRO SCOPI C bacteria SMALL [hpf] negati ve abnormal Not Available [facility] [address] [facility] [address], [place], [address], 08/20/2023 13:00:25 08/20/20 23 08/20/2023 UA MICRO SCOPI C squamous epi SMALL /lpf negati ve,sma ll This lab resul t is being provi ded to you and your provi angie at the same time in compl iance with the Centu ry Cures Act. Your provi angie may not have had time to revie w and make recom menda tions based on the resul t. Pleas e allow up to one week for provi angie revie w. Not Available [facility] [address] [facility] [address], [place], [address], 08/20/2023 13:00:25 08/20/20 23 08/20/2023 URINE CULTU RE final report MICROB IOLOGY RESULT S abnormal SOURC E Void KNOWN ALLER GIES see chart TREAT MENT see chart MEDIA PLATE D AT: Media plate d on 08/20 @ 1:18 PM COLON Y COUNT >100, 000 cfu/m l RESUL T Esche ortiz a coli (Isol ate 1) Sensi tivit y Yvette sis Swoope te 1 ----- ----- ----- ----- ----- ----- ----- - AMOX/ K CLAV <=8/4 *S AMP/S ULBAC CAMEJO <=8/4 *S AMPIC ILLIN <=8*S AZTRE ONAM <=4*S CEFAZ TRACY <=2*S CEFTA ZIDIM E <=1*S CEFTR IAXON E <=1*S CEFUR OXIME <=4*S CIPRO FLOXA LISA <=1*S LEVOF LOXAC IN <=2*S NITRO FURAN TOIN <=32* S PIP/T AZO <=16* S TETRA CYCLI NE <=4*S TRIME TH/ALVA LFA <=2/3 8*S TRIME THOPR IM <=8*S Orga nisms that are susce ptibl e to tetra cycli ne are gener ally also susce ptibl e to doxyc yclin e and minoc yclin e. Any subst ituti on of drugs which have not been teste d for sensi tivit y shoul d be consi dered based on appro gaurang usage of the drugs . Infor matio n on doxyc yclin e and minoc yclin e can be found in the Physi juany' s Desk Refer ence or from the [facility]. S= Susce ptibl e;I= Inter media te;R= Resis tant; ESBL= Resis tance due to confi rmed ESBL This lab resul t is being provi ded to you and your provi angie at the same time in compl iance with the Centu ry Cures Act. Your provi angie may not have had time to revie w and make recom menda tions based on the resul t. Pleas e allow up to one week for provi angie revie w. Not Available [facility] [address] [facility] [address], [place], [address], 08/22/2023 09:11:01 Result Notes None recorded. Problems Name Problem SNOMED Code Status Onset Date Resolution Date Notes Provider Name and Address Organization Details Recorded Time Diabetes mellitus 26659244 Active 2022 HAM Olivier - [facility] 10/18/202 3 12:29:05 Gastroesophage al reflux disease 620868646 [facility] 12:29:22 Hypertensive disorder 85044316 Active 2022 Jaleesa garza, [facility] 3 12:29:39 Aspirin therapy Active 2023 Jaleesa garza [facility] 4 10:12:44 History of statin therapy 508200594 Active 2023 Jaleesa garza [facility] 4 10:13:02 Problem Notes None recorded. Procedures Surgical History Date Name Laterality Status Provider Name and Address Organization Details Recorded Time 03/01/20 24 Past Data Reviewed completed BHANU Enriquez [address] [place] [address],[facility] [address], [place], [address], [facility] 03/01/2024 10:34:17 08/20/20 23 Past Data Reviewed completed BHANU Enriquez [address] [place] [address],[address], [place], [address], [facility] 08/19/2023 16:47:20 06/18/20 23 Past Data Reviewed completed BHANU Enriquez [address] [place] [address],[facility] [address], [place], [address], [facility] 06/18/2023 09:03:07 06/18/20 23 In and Out Catheterization- female completed BHANU Enriquez [address] [place] [address],[facility] [address], [place], [address], [facility] 06/18/2023 09:18:56 05/03/[address] colonography screening [...] Name and Address Organization Details Recorded Time 341236 latex environme nt,medica tion cough wheezing Not available Not available Not available 06/16/2023 56712 91 RxNorm Not Available Health Note 3 21:13:09 077398 shellfish derived food,medi cation cough wheezing Not available Not available Not available 06/16/2023 Not Available Health Note 3 21:13:09 272031 Ceclor medicatio n cough wheezing Not available Not available Not available 06/16/2023 03731 5 RxNorm Not Available Health Note 3 21:13:09 839928 penicilli n G Not available cough nausea wheezing Not available Not available Not available Not available 06/16/2023 7980 RxNorm Not Available Health Note 3 21:13:09 084021 Cipro medicatio n anaphylax is severe Not available 06/17/2023 98315 3 RxNorm BHANU Enriquez [address] [facility],[address] [place] [address], [address], [facility] 3 13:29:10 697844 nitrofura ntoin medicatio n Not available Not available Not available 06/18/2023 7454 RxNorm BHANU Enriquez [address] [place] [address],[address] [place] [address], [address], [facility] 3 09:21:59 025498 adhesive environme nt,medica tion Not available Not available Not available 06/18/2023 Jaleesa garza [facility] 3 09:33:34 121439 Medicinal product containin g aminoglyc oside and acting as antibacte rial agent (product) medicatio n Not available Not available Not available 06/18/2023 16471 7008 SNOMED Jaleesa garza [facility] 3 09:36:06 108075 amlodipin e medicatio n Not available Not available Not available 06/18/2023 16010 RxNorm Jaleesa garza [facility] 3 09:36:21 406942 bacitraci n medicatio n Not available Not available Not available 06/18/2023 1291 RxNorm Jaleesa garza, [facility] 3 09:36:38 982637 budesonid e medicatio n Not available Not available Not available 06/18/2023 48277 RxNorm Jaleesa garza, [facility] 3 09:36:49 091513 cefaclor medicatio n Not available Not available Not available 06/18/2023 2176 RxNorm Jaleesa garza [facility] 3 09:37:07 356606 ciproflox acin medicatio n Not available Not available Not available 06/18/2023 2551 RxNorm BHANU Enriquez [address] [place] [address], [address] [place] [address] Urology 4 10:34:33 872185 formotero l Not available Not available Not available Not available 06/18/2023 74720 RxNorm Jaleesa garza [facility] 3 09:37:47 434094 polymyxin B medicatio n Not available Not available Not available 06/18/2023 8536 RxNorm Jaleesa garza [facility] 3 09:39:05 184223 triamcino lone medicatio n Not available Not available Not available 06/18/2023 17490 RxNorm Jaleesa garza [facility] 3 09:39:25 083144 zinc oxide medicatio n Not available Not available Not available 06/18/2023 38061 RxNorm Jaleesa garza [facility] 3 09:39:39 Medications Name Sig Start Date Stop Date Status Note LastModified by Organization Details LastModified Time carvedilo l 25 mg tablet TAKE 1 TABLET BY MOUTH TWICE DAILY. ADMINIST ER WITH A MEAL/MAIRANA D active Not Available Not Available No [...] Updated DateTime 06/18/2023 167.64 cm 26.6 kg/m2 87562.8300 322235 g Not Available Health Note 06/18/2023 08:56:39 Date Recorded Body height Body mass index (BMI) Body weight Provider Name and Address Organization Details Last Updated DateTime 08/20/2023 167.64 cm 26.6 kg/m2 66133.74 g Jaleesa Sun [facility] 08/20/2023 12:25:48 Date Recorded Body height Body mass index (BMI) Body weight Provider Name and Address Organization Details Last Updated DateTime 03/01/2024 167.64 cm 26.6 kg/m2 79918.74 g Jaleesa Sun [facility] 03/01/2024 10:11:33 Social History Question Answer [...] available 02/26/2024 Are You Currently Employed? No [email or web address] Information not available 03/01/2024 Do You Or Have You Ever Used E-cigarettes Or Vape? Never Used Electronic Cigarettes [email or web address] Information not available 02/26/2024 When Did You Quit Smoking? 16+yearssincel astcigarsheila [email or web address] Information not available 03/01/2024 Number Of Pregnancies [...] Been Counseled For Unhealthy Alcohol Use? No [email or web address] Information not available 03/01/2024 What Is Your [...] Other Forms Of Tobacco Or Nicotine? No [email or web address] Information not available 03/01/2024 How Many Days [...] GERD/Acid Reflux Y Sexually Transmitted Infection N Diabetes Y Bleeding Disorder N Cancer N High Cholesterol N Heart Disease N Gynecological History Statement/Question [...] 02/26/2024 10:35:28 influenza, unspecified formulation 08/03/2023 completed Jaleesa garza [facility] 03/01/2024 10:11:41 SARS-COV-2 (COVID-19) vaccine, UNSPECIFIED 05/03/2020 completed Jaleesa garza [facility] 08/20/2023 12:25:53 pneumococcal, unspecified formulation 11/03/2021 completed Jaleesa garza [facility] 08/20/2023 12:25:53 influenza, unspecified formulation 08/03/2022 completed Jaleesa garza [facility] 03/01/2024 10:11:41 Past Encounters Encounter ID Performer Location Encounter Start Date Encounter Closed Date Diagnosis/Indication Diagnosis SNOMED-CT Code Diagnosis ICD10 Code [id number] BHANU Enriquezury [address] [place] [address] 06/18/2023 08:53:24 06/18/2023 11:09:09 Recurrent urinary tract infection N39.0 Atrophic vaginitis 06047 000 N95.2 Urinary tr act infectious disease 96311777 N39.0 [id number] BHANU Enriquez [place] [address] [place] [address] 08/20/2023 12:20:44 08/20/2023 13:31:35 Recurrent urinary tract infection N39.0 Atrophic vaginitis 37888 000 N95.2 Urinary tr act infectious disease 61239817 N39.0 [id number] BHANU EnriquezWoo [place] [address] [facility],[address] [place] [address] 03/01/2024 10:09:01 03/01/2024 10:48:18 Recurrent urinary tract infection 010165472 N39.0 Atrophic vaginitis 23031 000 N95.2 Urinary tr act infectious disease 50718636 N39.0 Health Concerns Section Related Observation LastModified by Organization Detai ls LastModified Time None Recorded Concern Status LastModified by Organization Details LastModified Time None Recorded Advance Directives Directive None Recorded Payers Encounter Date Sequence Insurance Name Policy Number Policy Knott Covered Member ID Knott Member ID Guarantor Name 06/18/2023 1 [place] [id number] Ly Monroe Rahn [id number] Ly Sander 08/20/2023 1 [place] [id number] Ly Monroe Rahn [id number] Ly Sander 03/01/2024 1 [place] [id number] Ly Monroe Rahn [id number] Ly Boucher Notes Date Note Type Note [...] uses 0 pads per day. snowbirds to [place], she leaves sep 03 through February 2024 (DA-6):6, (IIQ-7):0 BHANU Enriquez [address] [place] [address],[address], [place], [address], [facility] 06/18/2023 10:00:38 08/20/2023 text/html HPI Notes: 08/20: Patient presents to follow up for urinary tract infections (UTIs). Reports that dues to her traveling recently, she has been taking a daily abx everyday until July Has been off of them for 3-4 weeks. Reports she will get them from [place]. Using vaginal estrogen cream, every night right [...] uses 0 pads per day. [place] to [place], she leaves sep 03 through February 2024 (DA-6):6, (IIQ-7):0 BHANU Enriquez [address] [place] [address],[address], [place], [address], [facility] 08/20/2023 13:22:58 03/01/2024 text/html HPI Notes: : Patient presents to follow up for urinary tract infections (UTIs) [place] to [place] (leaves in Sep) in the winter [facility] UA done friday. Her UC was negative [...] weeks. Reports she will get them from [place]. Using vaginal estrogen cream, every night right [...] uses 0 pads per day. [place] to [place], she leaves sep 03 through February 2024 (DA-6):6, (IIQ-7):0 BHANU Enriquez [address] [place] [address],[address], [place], [address], [facility] 03/01/2024 10:47:16 OBGyn Episode No OBEpisode recorded.
--- OUTSIDE RECORDS SUMMARY | 2024-07-16 15:32 | XMS_ITS | Clinical Summary ---
Author Organization [employer] [facility] Address [place], [place] [address] Care Team Providers Care Corporate Staff Accountant Name Role Phone Rip Reynaga MD Primary [...] rhinitis type Allergy shots for mite,mold,cat,dog, pollens-T, EISENSTADT ALLERGY & ASTHMA 0 02/24/2015 Active metFORMIN [...] Noted Date Diagnosed Date Environmental allergies 06/15/2013 Overview (06/15/2013): Latex, animals, plants Hypertension 06/15/2013 Type 2 diabetes mellitus 06/15/2013 Asthma, moderate persistent 06/15/2013 Gastric reflux 06/15/2013 Spinal stenosis 06/15/2013 Overview (09/06/2015): L4-L5 L3-5 decompression 09/05/2015 Immunizations Name Administration [...] 45-75 07/04/2013 07/04/20 12 (Completed outside of [facility]) Colonoscopy through age 75 07/04/201807/04 (Completed outside of [facility]) Tetanus booster 09/28/2018 09/28/2008 (Comp leted outside of [facility]) DEXA/DXA scan for age 65+ 2023 Pneumococcal series for age 65+ (1 of 1 - PCV) 2023 COVID-19 vaccine series (2022-24 season) 2024 Influenza for age 65+ 07/04/2024 07/19/2015, 013 Medical Devices Implanted Type Area Welder Helper Device Identifier Shelf Expiration Date Model / Serial / Lot Dura 1x1in Duragen Plus Non-Mcclendon - [id number] Implanted:Qty: 1 on 09/05/2015 by Miguel Angel Matthew MD at [facility] N/A: Spine Integra Lif[employer]iences Nathaniel [id number]# / / [id number] Screw Lmbr Post 6.5x45mm Tsrh 3dx Og Thin Va - [id number] Implanted:Qty: 4 on 09/05/2015 by Miguel Angel Matthew MD at [facility] N/A: Spine Medtronic Spine/Ortho [id number] / / Herman Lmbr 35x5.5mm Tsrh 3d Cvd Titnm - [id number] Implanted:Qty: 2 on 09/05/2015 by Miguel Angel Matthew MD at [facility] N/A: Spine Medtronic Spine/Ortho [id number] / / Cnnctr Lmbr Sm 5.5mm Tsrh 3dx Titnm - [id number] Implanted:Qty: 4 on 09/05/2015 by Miguel Angel Matthew MD at [facility] N/A: Spine Medtronic Spine/Ortho [id number] / / Advance Directives * Full Code (Latest Code Status on File) Date Activated Date Inactivated Comments 09/05/2015 7:27 PM 09/08/2015 3:20 PM * Full Code Date Activated Date Inactivated Comments 09/05/2015 10:40 AM 09/05/2015 7:27 PM Question Answer Comments Code Status Discussion: Discussed Care Teams Corporate Staff Accountant Relationship Specialty Start Date End Date Rip Reynaga MD [address] [place] [address] PCP - General Family Practice 05/18/20
--- OUTSIDE RECORDS SUMMARY | 2024-07-16 15:32 | XMS_ITS | Clinical Summary ---
Author Organization [facility] Address [address] [place] [address] Care Team Providers Care Mold Washer Name Role Phone Elsewhere, Pcp Primary Care Provider Unavailabl e Source Comments Patient records contain information from all sites at [facility]. For routine questions regarding patient records, call [phone] during business hours, M-F 8:00 AM - 5:00 PM Central Time. Record requests for emergency care only can be directed to [phone] at any time.[facility] Allergies Active Allergy Reactions Criticality Noted [...] CDT Office Visit Department of Dermatology in [address] [address] Mikhail Delgado M.D. Keratosis Actinic (Primary Dx); [...] your living situation today? I have a [facility] place to live 04/22/2023 Sex and Gender [...] Colonoscopy 09/14/2018 09/14/2008 Colorectal Cancer Screening 09/14/2018 Hemoglobin A1C 08/26/2023 02/24/2023 Depression Screening (Annual PHQ-2) 11/03/2023 Fall Risk Screen (Annual) 11/03/2023 Creatinine Level (Kidney Fun ction Test) 03/24/2024 03/24/2023, 03/23/2023, 03/22/2023, Additional history exists Potassium Level 03/24/2024 03/24/2023, 03/04, 03/22/2023, Additional history exists Sodium Level 03/24/2024 03/24/2023, 03/04, 03/22/2023, Additional history exists Office Visit for Blood Press ure Check / Re-check 04/23/2024 04/23/2023 COVID-19 Vaccine (3 - 2022-2 4 season) 2024 02/16/2021, 01/19/2021 Influenza Vaccine (#1) 2024 , 08/03/2023, 08/08/2022, [...] 04/04, 02/18/2019 Medical Devices Implanted Type Area Billiard Parlor Manager Device Identifier Shelf Expiration Date Model [...] System IMG NON RAD IMAGI NG PROCEDURES [facility] NA * (ABNORMAL) Lipid Panel (04/23/2023 9:24 [...] CDT Bob Alvarado M.D. LAB BLOOD ADD-ON [facility] [address] [place] [address], [facility] CNFL [facility] in [address] [address] * (ABNORMAL) Basic Metabolic Panel (03/24/2023 6:49 AM CDT) Pathologist [facility] [place] Potassium, P 5.2 3.6 - 5.2 mmol/L [...] CDT Chanel Kinsey M.D. LAB BLOOD ADD-ON [facility] [address] [address], [place] CNFL [facility] in [place] [address] [address] * (ABNORMAL) Hemoglobin A1c (02/24/2023 3:40 AM [...] C.N.P. LAB BLOOD ADD-ON [facility] [address] [place] [address], [place] DTL [facility] [address] [place] [address] from Last 3 Months or Most Recently Relevant to Health Maintenance Advance Directives For more information, please contact: [phone] * Full Code (Latest Code Status on File) Date Activated Date Inactivated Comments 03/22/2023 10:39 PM 03/24/2023 1:12 PM Question Answer Comments Full Code: Not Discussed Due to: Patient not available * Full Code Date Activated Date Inactivated Comments 02/23/2023 8:26 PM 02/24/2023 8:04 PM Question Answer Comments Full Code: Discussed Care Teams Mold Washer Relationship Specialty Start Date End Date Elsewhere, Pcp PCP - General Internal Medicine 02/23/23
--- OUTSIDE RECORDS SUMMARY | 2024-07-16 15:32 | XMS_ITS ---
Author Organization [facility] Address [address] [place] [address] Care Team Providers Care Traveling Storekeeper Name Role Phone Unavailable Unavailable Unavailable Surgery Details Not on file Complications Check Surgery Details section. Procedure Estimated Blood Loss Check Surgery Details section. Procedure Findings Check Surgery Details section. Procedure Specimens Taken Check Surgery Details section.
== END 2024-07-12 09:51 | disposition home or self-care (01) ==
LOC: NFLDREF 07-16 15:30
PROVIDERS: PCP Family Medicine; Referring Provider Family Medicine; Visit Provider Family Medicine
DX: N39.0 Urinary tract infection, site not specified (principal)
CPT/HCPCS: 87086

== ENCOUNTER 2024-08-30 13:24 | Outpatient (CLI) | payer MEDICARE, SELFPAY ==
--- OUTSIDE RECORDS SUMMARY | 2024-08-30 13:27 | XMS_ITS | Continuity of Care Document ---
Author Organization [facility] Address [address] [place] [address] Phone Care Team Providers Care Appliance Technician Name Role Phone Norberto Ayalaca Unavailable Unavailable [...] tient Visit,Est, Mod [facility], [address], [place], [place], [id number], [place] tel:[phone] [facility] Spondylolisth esis, lumbar region 7 Pelkola Fiordaliza. [facility], [address] [place] [address], [id number] , [place]. tel:[phone] Referring Provider: Galdino Gloria, [facility] [address] [place], [address]. tel:[phone] Office/Outpa tient Visit,Est, Mod [facility], [address] [place] [address], [id number], [place] tel:[phone] [facility] [place] Spondylolisth esis, lumbar regionSpinal stenosis, lumbar region 6 Pelkola Fiordaliza. [facility], [address] [place] [address], [place], [place], [id number] , [place]. tel:[phone] Referring Provider: Galdino Gloria, [facility] [address] [place], [address]. tel:[phone] Office/Outpa tient Visit,Est, Mod [facility], [address] [place] [address], [id number], [place] tel:[phone] [facility] Arthrodesis statusSpinal stenosis, lumbar regionSpondyl olisthesis, lumbar region 6 Tiff Michelle. [facility], [address] [place] [address], [address], [place], [place], [id number] , [place]. tel:[phone] Referring Provider: Galdino Gloria, [facility] [address] [place], [address]. tel:[phone] Office/Outpa tient Visit,Est, Mod [facility], [address], [place], [place], [id number], [place] tel:[phone] [facility] [place] OverweightEss ential (primary) hypertensionS shahzad stenosis, lumbar regionSpondyl olisthesis, lumbar regionArthrod esis status Tiff Michelle. [facility], [address] [place] [address], [address], [place], [place], [id number] , [place]. tel:[phone] Referring Provider: Galdino Gloria, [facility] [address] [place], [address]. tel:[phone] [facility], [address], [place], [id number], [place] tel:[phone] [facility] [place] Spondylolisth esis, lumbar regionSpinal stenosis, lumbar region Pelkola Fiordaliza. [facility], [address] [place] [address] [address], [place], [place], [id number] , [place]. tel:[phone] Referring Provider: Galdino Gloria, [facility] [address] [place], [address]. tel:[phone] [facility], [address], [place], [place], [id number], [place] tel:[phone] [facility] OverweightSpo ndylolisthesi s, lumbar regionSpondyl olisthesis, lumbar region Tiff Michelle. [facility], [address] [place] [address], [address], [place], [place], [id number] , [place]. tel:[phone] [facility], [address] [place] [address], [id number], [place] tel:[phone] [facility] No Information 3201 5 Tiff Michelle. [facility], [address], [address], [place], [place], [id number] , [place]. tel:[phone] Referring Provider: Galdino Gloria, [facility] [address] [place], [address]. tel:[phone] Office/Outpa tient Visit,Est, Mod [facility], [address], [place], [place], [id number], [place] tel:[phone] [facility] [place] OverweightEss ential (primary) hypertensionS shahzad stenosis, lumbar regionSpondyl olisthesis, lumbar regionRadicul opathy, lumbar region Nov-0 2-201 5 Tiff Michelle. [facility], [address] [place] [address], [address], [place], [place], [id number] , [place]. tel:[phone] Referring Provider: Galdino Gloria, [facility] [address] [place], [address]. tel:[phone] Office/Outpa tient Visit,New, High [facility], [address], [place], [place], [id number], [place] tel:[phone] [facility] Thoracic spondylosis with myelopathySpi nal stenosis of lumbar region with neurogenic claudicationA cquired spondylolisth esis Sep-2 3-201 5 Pelkola Fiordaliza. [facility], [address] [place] [address] [address], [place], [place], [id number] , [place]. tel:[phone] Referring Provider: Galdino Gloria, [facility] [address] [place], [address]. tel:[phone] Office consultation , low Z [facility], [address], [place], [address], [place] tel:[phone] [facility] No Information 6 Tiff Michelle. [facility], [address] [place] [address], [address], [place], [place], [id number] , . tel:[phone] Referring Provider: Davin Oabndo, [facility] [address] [place], [address]. tel:[phone] Family History Family Member Type Diagnosis Age At Onset No Information Payers Payer name Insurance type Covered republican ID Donnie reynaga(s) BCBS [id number] [facility] [id number] Social History Type Description Quantity Date Captured [...]
--- OUTSIDE RECORDS SUMMARY | 2024-08-30 13:27 | XMS_ITS | Clinical Summary ---
Author Organization [facility] Address [address] [place] [address] Care Team Providers Care Drill Press Operator Numerical Control Name Role Phone Elsewhere, Pcp Primary Care Provider Unavailabl e Source Comments Patient records contain information from all sites at [facility]. For routine questions regarding patient records, call [phone] during business hours, M-F 8:00 AM - 5:00 PM Central Time. Record requests for emergency care only can be directed to [phone] at any time.[facility] Allergies Active Allergy Reactions Criticality Noted [...] Oxide Hives (Reselect Reaction) High 03/23/2018 Medications * This document contains information received from the source organization and may not represent a complete record from that organization. albuterol (ACCUNEB) 2.5 mg /3 mL nebulizer solution 3 mL every 4 (four) hours as needed for wheezing or shortness of breath. 1 8 Active lisinopril (PRINIVIL,ZESTRIL) 20 mg tablet Take 20 mg by mouth at bedtime. 1 8 Active beclomethasone (QVAR) 80 mcg/actuation inhaler Inhale 1 puff 2 (two) times a day. 1 puff twice a day 3 Active famotidine (PEPCID) 10 mg tablet Take 10 mg by mouth at bedtime. 3 Active Contour Next Test Strips strips USE 1 STRIP TO CHECK GLUCOSE THREE TIMES DAILY 1 Active carvediloL (COREG) 25 mg tablet Take 25 mg by mouth 2 (two) times a day. 1 Active aspirin [address] tablet Take 81 mg by mouth daily. Active metFORMIN XR (GLUCOPHAGE-XR) 500 mg 24 hr tablet Take 1 tablet (500 mg total) by mouth 2 (two) times a day. Resume Metformin on the evening of 02/26/23 3 Active magnesium oxide (MAG-OX) 400 mg (241.3 mg magnesium) tablet Take 400 mg by mouth daily. 3 Active albuterol 90 mcg/actuation inhaler Inhale 2 puffs every 4 (four) hours as needed for shortness of breath or wheezing. 3 Active semaglutide (OZEMPIC) 1 mg/dose (4 mg/3 mL) injection Inject 1 mg under the skin once a week. 3 Active fluticasone propionate (FLONASE) 50 mcg/actuation nasal spray Administer 1 spray into each nostril daily. Active nystatin (MYCOSTATIN) 100,000 unit/gram cream Apply to rash involving abdominal fold twice daily as needed 30 g 2 3 Active ondansetron ODT (ZOFRAN-ODT) 4 mg disintegrating tablet Dissolve 1 tablet (4 mg total) in the mouth every 12 (twelve) hours. 10 tablet 3 Active rosuvastatin (CRESTOR) 10 mg tablet Take 1 tablet (10 mg total) by mouth at bedtime. 90 tablet 3 3 Active sulfamethoxazole-t rimethoprim (BACTRIM DS) 800-160 mg per tablet 3 Active fluconazole (DIFLUCAN) 150 mg tablet as needed. 3 Active Active Problems Problem Noted Date Diagnosed [...] CDT Office Visit Department of Dermatology in [address] [address] Mikhail Delgado M.D. Keratosis Actinic (Primary Dx); Nevi Multiple; Keratosis Seborrheic Discharge Disposition: Home or Self Care from Last 3 Months Immunizations Name Administration Dates Next Due H1N1 Inj 09/26/2009 HepB Adult 01/04/2002,11/10/2000,08/13/2000 Influenza TIV (IM) 07/22/2013 Influenza Whole 08/17/2009 Influenza, Injectable, Quadrivalent 1004/2022,08/22/2021,07/11/2020,2015,08/02/2016,07/22/2013,07/18/2012,1 ,07/20/2009 Influenza, Seasonal, Injectable 07/22/2013,07/18,07/20/2009 PPSV23 08/18/2006 [...] money to buy more. Never true 04/22/20 23 Within the past 12 months, t he [...] a [facility] to live 04/22/2023 Comments Unknown Sex and Gender Information Value Date Recorded Sex Assigned at Female 04/22/2023 2:51 PM CDT Legal Sex Female 10:28 AM STAFF DEVELOPER Gender Identity Female 04/22/2023 2:51 PM CDT [...] Additional history exists Potassium Level 03/24/2024 03/24/2023, 052 11/2022, 03/22/2023, Additional history exists Sodium Level 03/24/2024 03/24/2023, 03/04, 03/22/2023, Additional history exists Office Visit for Blood Press ure Check / Re-check 04/23/2024 04/23/2023 COVID-19 Vaccine (3 - 2023-2 5 season) 2024 02/16/2021, 01/19/2021 Influenza Vaccine (#1) [...] 04/04, 02/18/2019 Medical Devices Implanted Type Area Senior Back End Java Developer Device Identifier Shelf Expiration Date Model / [...] found on the encounter that produced images. us Provider Not In System IMG NON RAD IMAGING PROCE DURES Final Result [facility] NA * (ABNORMAL) Lipid Panel (04/23/2023 [...] 9:24 AM CDT 04/23/2023 9:27 AM CDT us Bob Alvarado M.D. LAB BLOOD ADD-ON Final Res ult [facility] [address] [place] [address], [facility] CNFL [facility] [address] * (ABNORMAL) Basic Metabolic Panel (03/24/2023 6:49 [...] 6:49 AM CDT 03/24/2023 6:55 AM CDT us Chanel Kinsey M.D. LAB BLOOD ADD-ON Final R esult Performing Organization Address City/[facility]/ZIP Co de Phone Number [facility] [address] [place] [address], [place] CNFL [facility] in [address] [address] * (ABNORMAL) Hemoglobin A1c (02/24/2023 3:40 AM CDT) Hemoglobin A1c, B 5.9(H) 4.0 - 5.6 % 02/24/2023 4:27 AM CDT DTL Comment: Hemoglobin A1c values of 5.7-6.4 percent indicate an increased risk for developing diabetes mellitus. In diabetic patients, HbA1c goals should be discussed with healthcare provider. Blood (Blood, Venous) 02/24/2023 3:40 AM CDT 02/24/2023 3:58 AM CDT us Lori Anderson APRN CSuellenNK[facility]ine LAB BLOO D ADD-ON Final Result Performing Organization Address City[facility]/ZIP Co de Phone Number [facility] [address] [place] [address], [place] DTL [facility] [address] [place] [address] from Last 3 Months or Most Recently Relevant to Health Maintenance Insurance [facility] Advance Directives For more information, please contact: [phone] * Full Code (Latest Code Status on File) Date Activated Date Inactivated Comments 03/22/2023 10:39 PM 03/24/2023 1:12 PM Question Answer Comments Full Code: Not Discussed Due to: Patient not available * Full Code Date Activated Date Inactivated Comments 02/23/2023 8:26 PM 02/24/2023 8:04 PM Question Answer Comments Full Code: Discussed Care Teams Drill Press Operator Numerical Control Relationship Specialty Start Date End Date Elsewhere, Pcp PCP - General Internal Medicine 02/23/23
--- OUTSIDE RECORDS SUMMARY | 2024-08-30 13:27 | XMS_ITS | Referral Summary ---
Author Organization [facility] Address [address] [place] [address] Care Team Providers Care Accountant Assistant Name Role Phone Elsewhere, Pcp Primary Care Provider Unavailabl e Source Comments Patient records contain information from all sites at [facility]. For routine questions regarding patient records, call [phone] during business hours, M-F 8:00 AM - 5:00 PM Central Time. Record requests for emergency care only can be directed to [phone] at any time.[facility] Encounters Date Type Department Care Team Description 06/22/2024 2:35 PM CDT Ancillary Procedure Department of Dermatology 06/22/2024 2:00 PM CDT Office Visit Department of Dermatology in [address] [address] Mikhail Delgado M.D. Keratosis Actinic (Primary Dx); [...] your living situation today? I have a [facility] place to live 04/22/2023 Comments Unknown Sex and Gender Information Value Date Recorded Sex Assigned at Female 04/22/2023 2:51 PM CDT Legal Sex Female 10:28 AM CONTRACT OFFICER Gender Identity Female 04/22/2023 2:51 PM CDT [...] on file Medical Devices Implanted Type Area Hospital Staff Pharmacist Device Identifier Shelf Expiration Date Model / [...] In System IMG NON RAD IMAGING PROCE PACHECO Final Result [facility] NA * (ABNORMAL) Lipid [...] M.D. LAB BLOOD ADD-ON Final Res ult Performing Organization Address [facility]/ZIP Co de Phone Number [facility] [address] [place] [address], [facility] CNFL [facility] in [address] [address] * (ABNORMAL) Basic Metabolic Panel (03/24/2023 6:49 AM CDT) [facility] Potassium, P 5.2 3.6 - 5.2 mmol/L [...] M.D. LAB BLOOD ADD-ON Final R esult [facility] [address] [place] [address], [place] CNFL [facility] in [address] [address] * (ABNORMAL) Hemoglobin A1c (02/24/2023 3:40 AM [...] CSuellenNKaterine LAB BLOO D ADD-ON Final Result [facility] [address] [place] [address], [place] DTL [facility] [address] [place] [address] from Last 3 Months or Most Recently Relevant to Health Maintenance Insurance [facility] Advance Directives For more information, please contact: [phone] * Full Code (Latest Code Status on File) Date Activated Date Inactivated Comments 03/22/2023 10:39 PM 03/24/2023 1:12 PM Question Answer Comments Full Code: Not Discussed Due to: Patient not available * Full Code Date Activated Date Inactivated Comments 02/23/2023 8:26 PM 02/24/2023 8:04 PM Question Answer Comments Full Code: Discussed Care Teams Accountant Assistant Relationship Specialty Start Date End Date Elsewhere, Pcp PCP - General Internal Medicine 02/23/23
--- OUTSIDE RECORDS SUMMARY | 2024-08-30 13:27 | XMS_ITS ---
Author Organization [facility] Address [address] [place] [address] Care Team Providers Care Glass Processing Worker Name Role Phone Unavailable Unavailable Unavailable Surgery Details Not on file Complications Check Surgery Details section. Procedure Estimated Blood Loss Check Surgery Details section. Procedure Findings Check Surgery Details section. Procedure Specimens Taken Check Surgery Details section.
--- OUTSIDE RECORDS SUMMARY | 2024-08-30 13:28 | XMS_ITS | Encounter Summary ---
Author Organization [facility] Address [address] [place] [address] Care Team Providers Care Toy Assembler Wood Name Role Phone Elsewhere, Pcp Primary Care Provider Unavailabl e Reason for Visit * Reason Comments Skin Check * Appointment Request (Routine) - Closed Specialty Diagnoses / Procedures Referred By Cindy t Referred To Contact Dermatology Referral ID Status Reason Start Date Expiration Date Visits Re quested Visits Authorized [id number] Closed 01/02/2024 01/01/2025 1 1 Encounter Details Date Type Department Care Team (Late st Contact Info) Description 06/22/2024 2:00 PM CDT Office Visit Department of Dermatology in [address] [address] Mikhail Delgado M.D. [address] [place] [address] Keratosis Actinic (Primary Dx); Nevi Multiple; Keratosis [...] your living situation today? I have a [facility] place to live 04/22/2023 Comments Unknown Sex and Gender Information Value Date Recorded Sex Assigned at Female 04/22/2023 2:51 PM CDT Legal Sex Female 10:28 AM TITLE CURATIVE SPECIALIST Gender Identity Female 04/22/2023 2:51 PM CDT [...] extremities. My scribe (Dejah) served as a public school teacher for the entirety of the exam. Examination [...] Signed: branden White. 06/22/2024. 2:20 PM CDT. IMikhail M.D., personally performed the services described in [...] Seborrheic documented in this encounter Care Teams Toy Assembler Wood Relationship Specialty Start Date End Date Elsewhere, Pcp PCP - General Internal Medicine 02/23/23 documented as of this encounter
--- OUTSIDE RECORDS SUMMARY | 2024-08-30 13:28 | XMS_ITS | Encounter Summary ---
Author Organization [facility] Address [address] [place] [address] Care Team Providers Care Mining Detail Draftsperson Name Role Phone Elsewhere, Pcp Primary Care [...] your living situation today? 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
--- OUTSIDE RECORDS SUMMARY | 2024-08-30 13:28 | XMS_ITS | Clinical Summary ---
Author Organization [facility] Address [place], [place] [address] Care Team Providers Care Junior Automation Engineer Name Role Phone Rip Reynaga MD Primary [...] [id number] 07/04/2013 07/04/20 12 (Completed outside of [facility]) Colonoscopy through age 75 07/04/201807/04 (Completed outside of [facility]) Tetanus booster 09/28/2018 09/28/2008 (Comp leted outside of [facility]) DEXA/DXA scan for age 65+ 2023 Pneumococcal series for age 65+ (1 of 1 - PCV) 2023 COVID-19 vaccine series ( season) 2024 Influenza for age 65+ 07/04/2024 07/19/2015, 013 Medical Devices Implanted Type Area Care Coordinator Device Identifier Shelf Expiration Date Model / Serial / Lot Dura 1x1in Duragen Plus Non-[place]cl[place]on - [id number] Implanted:Qty: 1 on 09/05/2015 by Miguel Angel Matthew MD at [facility] N/A: Spine Integra Lifesciences Nathaniel [id number] / / [id number] Screw Lmbr Post 6.5x45mm Tsrh 3dx Og Thin Va - [id number] Implanted:Qty: 4 on 09/05/2015 by Miguel Angel Matthew MD at [facility] N/A: Spine Medtronic Spine/Ortho [id number] / / Herman Lmbr 35x5.5mm Tsrh 3d Cvd Titnm - [id number] Implanted:Qty: 2 on 09/05/2015 by Miguel Angel Matthew MD at [facility] N/A: Spine Medtronic Spine/Ortho [id number] / / Cnnctr Lmbr Sm 5.5mm Tsrh 3dx Titnm - [id number] Implanted:Qty: 4 on 09/05/2015 by Miguel Angel Matthew MD at [facility] N/A: Spine Medtronic Spine/Ortho [id number] / / Advance Directives * Full Code (Latest Code Status on File) Date Activated Date Inactivated Comments 09/05/2015 7:27 PM 09/08/2015 3:20 PM * Full Code Date Activated Date Inactivated Comments 09/05/2015 10:40 AM 09/05/2015 7:27 PM Question Answer Comments Code Status Discussion: Discussed Care Teams Junior Automation Engineer Relationship Specialty Start Date End Date Rip Reynaga MD [address] [place] [address] PCP - General Family Practice 05/18/20
== END 2024-08-30 13:25 | disposition home or self-care (01) ==
PROVIDERS: PCP Family Medicine; Visit Provider Family Medicine
DX: I10 Essential (primary) hypertension (principal); E11.9 Type 2 diabetes mellitus without complications; M25.50 Pain in unspecified joint; E78.2 Mixed hyperlipidemia; N17.9 Acute kidney failure, unspecified
CPT/HCPCS: 80048; 83735

== ENCOUNTER 2025-02-08 10:01 | Outpatient (CLI) | payer MEDICARE, SELFPAY ==
--- NOTE | 2025-02-08 10:15 | CRLHL7_ITS ---
For Patients: As a result of the Century Cures Act, medical imaging exams and procedure reports are released immediately into your electronic medical record. You may view this report before your referring provider. If you have questions, please contact your health care provider. BILATERAL DIGITAL SCREENING MAMMOGRAM WITH COMPUTER-AIDED DETECTION AND TOMOSYNTHESIS CLINICAL HISTORY: Routine screening exam. COMPARISON: 08/21/23, 09/04/21, 06/12/20. TECHNIQUE: Digital mammogram in CC and MLO projections including computer-aided detection (CAD). Tomosynthesis was used in this interpretation. BREAST COMPOSITION: The breasts are heterogeneously dense, which may obscure small masses. FINDINGS: RIGHT Breast: No suspicious findings. LEFT Breast: Focal asymmetric density upper outer quadrant 8 cm from the nipple. LEFT axillary adenopathy. IMPRESSION: LEFT breast asymmetry/mass. RECOMMENDATIONS: Additional mammographic views of the LEFT breast including 3D spot compression CC/MLO. LEFT breast ultrasound may also be required. The [facility] will contact the patient. A lay language report of this examination will be provided to the patient. BI-RADS Category 0: Incomplete: Need Additional Imaging Evaluation Dictated by Rip Hunter MD @ 02/08/2025 1:34:23 PM chris/Dictated by: Rip Hunter MD @ 02/08/2025 1:37:00 PM (Electronically Signed)
== END 2025-02-08 10:02 | disposition home or self-care (01) ==
LOC: MAMMO 10:01
PROVIDERS: PCP Family Medicine; Visit Provider Family Medicine
DX: Z12.31 Encounter for screening mammogram for malignant neoplasm of breast (principal); N63.20 Unspecified lump in the left breast, unspecified quadrant; R92.333 Mammographic heterogeneous density, bilateral breasts
CPT/HCPCS: 77063; 77067

== ENCOUNTER 2025-02-10 09:35 | Outpatient (CLI) | payer MEDICARE, SELFPAY | END 2025-02-10 09:36 | disposition home or self-care (01) | PROVIDERS: PCP Family Medicine; Visit Provider Family Medicine | DX: E78.2 Mixed hyperlipidemia (principal); I10 Essential (primary) hypertension; R53.83 Other fatigue; M48.061 Spinal stenosis, lumbar region without neurogenic claudication; Z79.82 Long term (current) use of aspirin | CPT/HCPCS: 80048; 80061; 82306; 84460 ==

== ENCOUNTER 2025-02-11 10:34 | Outpatient (CLI) | payer MEDICARE, SELFPAY ==
--- NOTE | 2025-02-11 10:45 | CRLHL7_ITS ---
For Patients: As a result of the Century Cures Act, medical imaging exams and procedure reports are released immediately into your electronic medical record. You may view this report before your referring provider. If you have questions, please contact your health care provider. CLINICAL HISTORY: LEFT breast mass/asymmetry. COMPARISON: 02/08/25, 08/21/23, 09/04/21 TECHNIQUE: Digital LEFT mammogram in 2 projections. Tomosynthesis was used in this interpretation. Real-time ultrasound imaging of LEFT breast with imaging documentation. Scanning was performed by both the technologist and the radiologist. BREAST COMPOSITION: The breasts are heterogeneously dense, which may obscure small masses. FINDINGS: 3D spot compression CC/MLO left breast mammogram images submitted. Decreased conspicuity of asymmetric density within the upper-outer quadrant. No underlying architectural distortion. No suspicious calcifications. Targeted left axillary ultrasound performed. In this location, there is an enlarged left axillary lymph node with hypoechoic internal echotexture measuring 2.3 x 1.2 x 2.1 cm. A smaller adjacent hypoechoic lymph node measures 1.2 x 0.9 x 1.4 cm. No ultrasound abnormality detected within the upper-outer quadrant of the left breast. IMPRESSION: Suspicious left axillary lymph nodes measuring 2.3 cm and 1.4 cm. RECOMMENDATIONS: Ultrasound-guided core needle biopsy of both the abnormal left axillary lymph nodes. A lay language report of this examination will be provided to the patient. BI-RADS Category 4. Suspicious. Dictated by Rip Hunter MD @ 02/11/2025 11:43:11 AM Dictated by: Rip Hunter MD @ 02/11/2025 11:43:16 (Electronically Signed)
== END 2025-02-11 10:35 | disposition home or self-care (01) ==
LOC: MAMMO 10:35
PROVIDERS: PCP Family Medicine; Visit Provider Family Medicine
DX: N63.20 Unspecified lump in the left breast, unspecified quadrant (principal); R92.333 Mammographic heterogeneous density, bilateral breasts; R92.8 Other abnormal and inconclusive findings on diagnostic imaging of breast
CPT/HCPCS: 76642; 77065; G0279

== ENCOUNTER 2025-02-21 08:55 | Outpatient (CLI) | payer MEDICARE, SELFPAY ==
--- NOTE | 2025-02-21 09:15 | CRLHL7_ITS ---
For Patients: As a result of the Century Cures Act, medical imaging exams and procedure reports are released immediately into your electronic medical record. You may view this report before your referring provider. If you have questions, please contact your health care provider. ULTRASOUND-GUIDED CORE NEEDLE BIOPSY 2 SITES IN THE LEFT AXILLA CLINICAL HISTORY: Enlarged left axillary lymph nodes COMPARISON STUDIES: 02/11/2025 TECHNIQUE: Real-time ultrasound with image documentation was used for targeting the left axillary lesions. A core needle biopsy system was used, 18 gauge. CONSENT and TIME OUT: The procedure, risks, and alternatives were explained to the patient and a consent was signed. [place] Protocol was followed including pre-procedure verification that relevant information/documentation was available, reviewed and properly matched to the patient; consent accurate and complete; and equipment and supplies available. Time Out was conducted just prior to starting procedure to verify the four required elements: patient identity, correct side/site marked (if applicable), procedure, relevant images/results properly labeled and displayed (if applicable). PROCEDURE: All biopsies were performed in a similar manner. The patient was positioned supine on the ultrasound table. The left axilla was prepped with ChloraPrep. 8 cc of 1 percent lidocaine used for local anesthesia. Core samples were obtained. A sterile metal biopsy clip was placed percutaneously to angela the lesion position within the left axilla. The specimens were placed in 10% formalin and sent to the Pathology Department. Pressure was held on the biopsy site until all bleeding subsided. The skin incision was closed with Steri-Strips. An ice pack was positioned over the biopsy site. The patient tolerated the procedure well. Post-biopsy instructions were reviewed with the patient, and a written copy was given to her. SITE A: LATERALITY: Left axilla LESION: Enlarged hypoechoic lymph node measuring 12 x 9 x 14 millimeters SUSPICION: High NUMBER OF SAMPLES: 5 BIOPSY CLIP SHAPE: Oval PROXIMITY OF CLIP TO TARGET: Within the lesion SITE B: LATERALITY: Left axilla LESION: Enlarged hypoechoic lymph node measuring 23 x 12 x 21 millimeters SUSPICION: High NUMBER OF SAMPLES: 5 BIOPSY CLIP SHAPE: HydroMARK PROXIMITY OF CLIP TO TARGET: Within the lesion DISTANCE BETWEEN: Sites A and B: 1.1 cm IMPRESSION: Ultrasound-guided left axillary lymph node biopsy of two or more sites. When the pathology report is available, an addendum to this report will be made. ACR not applicable Dictated by Rip Hunter MD @ 02/22/2025 9:41:19 AM (Electronically Signed)
== END 2025-02-21 08:56 | disposition home or self-care (01) ==
LOC: US 08:56
PROVIDERS: PCP Family Medicine; Visit Provider Family Medicine
DX: R92.8 Other abnormal and inconclusive findings on diagnostic imaging of breast (principal); C77.3 Secondary and unspecified malignant neoplasm of axilla and upper limb lymph nodes; R59.0 Localized enlarged lymph nodes
CPT/HCPCS: 38505; 76942; 88305; 88341; 88342; 88360; 88361; A4648; A4649

== ENCOUNTER 2025-02-23 13:12 | Outpatient (CLI) | payer MEDICARE, SELFPAY ==
--- NOTE | 2025-02-23 13:30 | CRLHL7_ITS ---
For Patients: As a result of the Century Cures Act, medical imaging exams and procedure reports are released immediately into your electronic medical record. You may view this report before your referring provider. If you have questions, please contact your health care provider. XR DXA Bone Mineral Density (BMD) Reason for exam: Asymptomatic menopausal state. Current height (in): 65. Weight (lb): 165. Menopause age: 58. Ethnicity: White. 1. Have you had a previous hip or vertebral fracture? No. 2. Have you had any fractures during your adult life which did not result from significant trauma (e.g., auto accident)? No. 3. Did either of your parents have a hip fracture? No. 4. Do you smoke? No. 5. Have you ever taken Glucocorticoids? No. 6. Do you have rheumatoid arthritis? No. 7. Do you have secondary osteoporosis? No. 8. Do you drink 3 or more alcoholic drinks per day? No. 9. Are you being treated for osteoporosis? No. 10. Have you ever taken any of the following medications: Actonel, Evista, Fosamax, Miacalcin, Reclast, Boniva, Forteo, HRT (i.e., estrogen/hormone therapy), Protelos, Prolia, Vitamin D, Calcium, other ??? please specify. ANSWER: Yes, vitamin D. 11. Do you have any of the following medical conditions: Anorexia or bulimia, asthma or emphysema, end stage renal disease, hyperparathyroidism, any seizure disorders, cancer, inflammatory bowel diseases, hysterectomy, other ??? please specify. ANSWER: Yes, asthma or emphysema. 12. What was your maximum height (inches)? 66. 13. Do you perform weight bearing exercise regularly? Yes. 14. Do you regularly consume dairy products? Yes. 15. Do you drink caffeinated beverages? Yes. 16. At what age did your period start? 10. 17. Are you premenopausal? No. 18. How many full-term pregnancies have you had? 2. 19. Have you ever missed your period for more than 6 months in a row (not including or menopause)? No. TECHNIQUE: Bone mineral density study was performed using the [employer]. FINDINGS: The results of the study expressed as bone mineral density (BMD) are as follows: Neck Left: BMD: 0.853 g/cm2. T-score: 0.0. Z-score: 1.6 Right: BMD: 0.836 g/cm2. T-score: -0.1. Z-score: 1.5 Total Left: BMD: 1.076 g/cm2. T-score: 1.1. Z-score: 2.4 Right: BMD: 1.071 g/cm2. T-score: 1.1. Z-score: 2.4 Radius Left 33%: BMD: 0.661 g/cm2. T-score: -0.6. Z-score: 1.3 IMPRESSION: Normal bone density. *Comparison exams done prior to 04/2020 were performed on different unit, [employer]. Rip Hunter M.D. Diagnostic Radiologist [email or web address] NIMO/[email or web address] cook/Dictated by: Rip Hunter MD @ 02/23/2025 4:37:00 PM (Electronically Signed)
== END 2025-02-23 13:13 | disposition home or self-care (01) ==
LOC: RAD 13:12
PROVIDERS: PCP Family Medicine; Visit Provider Family Medicine
DX: Z13.820 Encounter for screening for osteoporosis (principal); Z78.0 Asymptomatic menopausal state
CPT/HCPCS: 77080

== ENCOUNTER 2025-03-02 19:28 | Outpatient (CLI) | payer MEDICARE, SELFPAY ==
--- NOTE | 2025-03-02 19:45 | CRLHL7_ITS ---
For Patients: As a result of the 21st Century Cures Act, medical imaging exams and procedure reports are released immediately into your electronic medical record. You may view this report before your referring provider. If you have questions, please contact your health care provider. 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 INDICATION FOR BREAST MRI: Evaluate for breast primary malignancy. COMPARISON STUDIES: Mammogram 02/08/2025, additional mammographic views of the LEFT breast and LEFT breast and axillary ultrasound 02/11/2025, ultrasound-guided lymph node biopsy 02/21/2025. CONTRAST: 15 mL Dotarem IV. TECHNIQUE: The patient was positioned prone using a breast coil. Multiple imaging sequences were obtained using 1-1.5 mm thick slices with no gap. The image sequences include T2-weighted STIR in the axial plane, T1-weighted nonfat-saturated gradient echo in the axial plane, pre- and post-contrast T1-weighted FLASH 3D with fat suppression in the axial plane, and T1-weighted FLASH high resolution 3D with fat suppression in the sagittal plane. Image post-processing was performed on a [employer] workstation. Complex 3D rendering including maximum intensity projections (MIPS) and volumetric renderings were obtained to optimize visualization of the extent of pathology and relationship to the nipple, skin, and chest wall. This aids in determining feasibility of breast conservation surgery. Subtraction, multiplanar reconstruction, mean curve determination, and angiogenesis mapping were also performed. The study was technically adequate. FINDINGS: Amount of Fibroglandular Tissue: Scattered fibroglandular tissue. Breast Background Enhancement: Mild. RIGHT Breast: No suspicious areas of enhancement. LEFT Breast: No suspicious areas of enhancement. Lymph Nodes: There is an enlarged LEFT axillary lymph node with artifact from a biopsy marker clip, the lymph node measures 1.4 x 1.2 cm. There is a second lymph node with eccentric cortical thickening, measuring up to 0.9 cm which also contains artifact from a biopsy marker clip. These are consistent with the sites of biopsy-proven rafat metastasis. Postprocedural hematoma is present. No RIGHT axillary adenopathy. IMPRESSIONS AND RECOMMENDATIONS: 1. Two abnormal LEFT axillary lymph nodes, containing biopsy marker clips, consistent with the sites of rafat metastasis. 2. No MRI evidence of breast malignancy in either breast. 3. Surgical/Oncologic follow up for known malignancy. BI-RADS Category 6: Known Biopsy-Proven Malignancy Dictated by Leisa Sharp MD @ 03/03/2025 11:19:45 AM jj/Dictated by: Leisa Sharp MD @ 03/03/2025 11:20:00 AM (Electronically Signed)
== END 2025-03-02 19:29 | disposition home or self-care (01) ==
LOC: MRI 19:28
PROVIDERS: PCP Family Medicine; Visit Provider Family Medicine
DX: C77.3 Secondary and unspecified malignant neoplasm of axilla and upper limb lymph nodes (principal); C80.1 Malignant (primary) neoplasm, unspecified
CPT/HCPCS: 77049; C8908; C8937; A9575

== ENCOUNTER 2025-03-08 14:37 | Outpatient (CLI) | payer MEDICARE, SELFPAY ==
[2025-03-08 22:12] LABS: Immature Reticulocyte Fraction 8.4 % (3.0-15.9); Reticulocyte Hemoglobin Equivi 39.2 pg (29.0-35.0); Reticulocytes Absolute 0.11 # (0.03-0.08)
== END 2025-03-08 14:38 | disposition home or self-care (01) ==
PROVIDERS: PCP Family Medicine; Visit Provider Family Medicine
DX: I10 Essential (primary) hypertension (principal); E78.2 Mixed hyperlipidemia; E11.9 Type 2 diabetes mellitus without complications; C80.1 Malignant (primary) neoplasm, unspecified
CPT/HCPCS: 80053; 84443; 85025; 85045

== ENCOUNTER 2025-03-24 07:56 | Day surgery (SDC) | payer MEDICARE, SELFPAY ==
[2025-03-24 08:14] VITALS: BMI 29.0
[2025-03-24 08:36] VITALS: BP 196/84; PULSE 68; RESP 16; TEMP 36.3; O2SAT 98
[2025-03-24] MEDS: SODIUM CHLORIDE 0.9 % (FLUSH) 10 ML SYRINGE IVF (08:40)
[2025-03-24] MEDS: LACTATED RINGERS 500 ML 500 ML 100 ML IV (08:50)
--- NOTE | 2025-03-24 09:15 | CRLHL7_ITS ---
For Patients: As a result of the Cures Act, medical imaging exams and procedure reports are released immediately into your electronic medical record. You may view this report before your referring provider. If you have questions, please contact your health care provider. LEFT AXILLARY LYMPH NODE WIRE LOCALIZATION USING ULTRASOUND GUIDANCE X2 CLINICAL HISTORY: Malignancy of unknown origin regarding 2 right axillary lymph nodes. LATERALITY: Right axilla LESION: Two enlarged right axillary lymph nodes containing clips. LOCALIZATION WIRE: [place] hookwire x2. TECHNIQUE: Each localization wire was placed using real-time ultrasound guidance with image documentation. CONSENT and TIME OUT: The procedure, risks, and alternatives were explained to the patient and a consent was signed. [place] Protocol was followed including pre-procedure verification that relevant information/documentation was available, reviewed and properly matched to the patient; consent accurate and complete; and equipment and supplies available. Time Out was conducted just prior to starting procedure to verify the four required elements: patient identity, correct side/site marked (if applicable), procedure, relevant images/results properly labeled and displayed (if applicable). PROCEDURE: Each localization was performed in similar fashion. The skin was prepped with ChloraPrep and 8 cc of 1% lidocaine was injected for local anesthesia. The localization wire was placed within or near the targeted right axillary lymph node lesion using ultrasound guidance. The patient tolerated the procedure well. PROXIMITY OF WIRE TO LESION: The wire is present within each lesion. IMPRESSION: Successful right axillary lymph node wire localization x2. ACR not applicable Dictated by Rip Hunter MD @ 03/24/2025 12:20:26 PM (Electronically Signed)
--- NOTE | 2025-03-24 10:27 | SUR.PREOP ---
Pt back from Radiology-had wire localization done. Pt ready for surgery.
--- NOTE | 2025-03-24 10:40 | P.ANES_ITS ---
Anesthesia Charges Start Date/Time Anesthesia Start Date: 03/24/25 Anesthesia Start Time: 10:50 Stop Date/Time Anesthesia Stop Date: 03/24/25 Anesthesia Stop Time: 12:37 Coding CPT Codes CPT Codes: ANESTH SURGERY OF SHOULDER - 83308 ([id number]) P2 - PATIENT W/MILD SYST DISEASE, QK - WIRE WEAVING LOOM SETTER 2-4 CNCRNT ANES PROC, QX - TOURISM RADIO PRESENTER SVC W/ MD MED DIRECTION
--- NOTE | 2025-03-24 10:40 | W.ANESCHARGE ---
Anesthesia Charges Start Date/Time Anesthesia Start Date: 03/24/25 Anesthesia Start Time: 10:50 Stop Date/Time Anesthesia Stop Date: 03/24/25 Anesthesia Stop Time: 12:37 Coding CPT Codes CPT Codes: ANESTH SURGERY OF SHOULDER - 74156 ([id number]) P2 - PATIENT W/MILD SYST DISEASE, QK - DYNO TECHNICIAN 2-4 CNCRNT ANES PROC, QX - CORPORATE AIRCRAFT MECHANIC SVC W/ MD MED DIRECTION
--- NOTE | 2025-03-24 10:43 | W.PM.H&PU ---
History & Physical Update History & Physical Update H&P Reviewed and patient assessed: No changes noted
[2025-03-24] MEDS: CLINDAMYCIN 900 MG/50 ML-D5W IVPB (10:56)
[2025-03-24] MEDS: BUPIVACAINE 0.25% 30 ML INJECTION (11:23)
[2025-03-24] MEDS: LIDOCAINE 1% MDV 20 ML INJECTION (11:23)
--- NOTE | 2025-03-24 11:49 | CRLHL7_ITS ---
For Patients: As a result of the Cures Act, medical imaging exams and procedure reports are released immediately into your electronic medical record. You may view this report before your referring provider. If you have questions, please contact your health care provider. CLINICAL HISTORY: Left axillary lymph node malignancy COMPARISON: 02/11/2025 FINDINGS: Specimen contains the biopsy lymph node along with the biopsy clip. Localization wire is also present. IMPRESSION: Specimen contains the biopsied lymph node along with a biopsy clip and localization wire. ACR not applicable. Dictated by Rip Hunter MD @ 03/24/2025 12:26:19 PM (Electronically Signed)
--- NOTE | 2025-03-24 12:06 | CRLHL7_ITS ---
For Patients: As a result of the Century Cures Act, medical imaging exams and procedure reports are released immediately into your electronic medical record. You may view this report before your referring provider. If you have questions, please contact your health care provider. CLINICAL HISTORY: Left axillary lymph node malignancy COMPARISON: 02/11/2025 FINDINGS: Specimen contains the biopsy lymph node along with the biopsy clip. Localization wire is also present. IMPRESSION: Specimen contains the biopsied lymph node along with a biopsy clip and localization wire. Dictated by Rip Hunter MD @ 03/24/2025 12:30:20 PM (Electronically Signed)
--- NOTE | 2025-03-24 12:36 | P.ANES_ITS ---
Anesthesia Charges Start Date/Time Anesthesia Start Date: 03/24/25 Anesthesia Start Time: 10:50 Stop Date/Time Anesthesia Stop Date: 03/24/25 Anesthesia Stop Time: 12:37 Coding CPT Codes CPT Codes: ANESTH SKIN EXT/PER/ATRUNK - 01102 ([id number]) P2 - PATIENT W/MILD SYST DISEASE, QK - TREE TOPPER 2-4 CNCRNT ANES PROC, QX - UNIVERSITY DEAN SVC W/ MD MED DIRECTION
--- NOTE | 2025-03-24 12:36 | W.ANESCHARGE ---
Anesthesia Charges Start Date/Time Anesthesia Start Date: 03/24/25 Anesthesia Start Time: 10:50 Stop Date/Time Anesthesia Stop Date: 03/24/25 Anesthesia Stop Time: 12:37 Coding CPT Codes CPT Codes: ANESTH SKIN EXT/PER/ATRUNK - 82639 ([id number]) P2 - PATIENT W/MILD SYST DISEASE, QK - COURT BAILIFF 2-4 CNCRNT ANES PROC, QX - HAND M[employer]ICAN FOOD MAKER SVC W/ MD MED DIRECTION
[2025-03-24 12:37] VITALS: BP 136/68; PULSE 64; RESP 16; TEMP 36.6; O2SAT 98
[2025-03-24 12:45] VITALS: BP 140/68; PULSE 62; RESP 16; O2SAT 98
[2025-03-24 13:00] VITALS: BP 152/74; PULSE 61; RESP 16; O2SAT 98
[2025-03-24 13:15] VITALS: BP 159/81; PULSE 63; RESP 16; TEMP 36.7; O2SAT 99
--- NOTE | 2025-04-04 12:46 | PM.GSPRC ---
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 A core biopsy was obtained which showed a poorly differentiated carcinoma of unknown primary. Her case was presented at tumor Board, with recommendations for removal of the lymph nodes to obtain more tissue. Risks and benefits of removal were discussed at length with the patient. Risks included, but were not limited to: Bleeding, infection, risk of damage to surrounding structures, risk of seroma, risk of lymphatic leak, risk of lymphedema and anesthesia complication. All questions and concerns were addressed with patient agreeing to proceed. Procedure Description: Prior to presenting to the operating room the patient was taken to radiology where wire localization of the 2 positive left axillary nodes was obtained. After discussing the risks and benefits of the procedure, the patient signed informed consent.? The operative site was marked and the patient was brought to the operating room and placed on the operating table in supine position.? Care was taken to pad the patient's pressure points.?? The patient was then given sedation by anesthesia.?? The operative site was then prepped and draped in the usual sterile fashion.? A time-out was then performed. A transverse incision was made within the axilla, close to the 2 localizing wires. Dissection was carried down through subcutaneous tissue with cautery. The 1st wire was identified and dissection followed down to a large, firm lymph node. This was dissected out circumferentially. The vascular pedicle was tied off with 3-0 Vicryl before being transected. The lymph node, wire and clip were then passed off to be sent to Radiology. Radiology confirmed presence of both the wire and clip. The specimen was then sent in permanent for pathology. The 2nd wire was just inferior to the 1st and dissected down deep to a large, firm lymph node. This again was dissected out circumferentially. The vascular pedicle was tied off with 3-0 Vicryl performing transected. The lymph node, wire and clip were then passed off to be sent to Radiology. Radiology confirmed the presence of both the wire and clip. The specimen was then sent in permanent for pathology. The axilla was palpated, 2 additional firm, fixed lymph nodes were appreciated, circumferentially dissected free with the vascular pedicle ligated with 3-0 Vicryl and removed. These were sent to pathology as axillary lymph node 3 and axillary lymph node 4. Hemostasis was assured with electrocautery. The cavity was gently irrigated. The clavipectoral fascia was then closed with interrupted 3 0 Vicryl. The incision was closed in layers with interrupted 3 0 Vicryl in running 4 O Monocryl. Sterile dressings were then applied. ? The patient was then woken and transported to the recovery area in stable condition. ? The patient tolerated the procedure well. Findings: Two wire localized left axillary nodes. Two additional firm, fixed lymph nodes appreciated and removed. Anesthesia: MAC and local Surgeon: Zuleyma Jung MD Estimated blood loss (mL): 5 Additional Specimen Information: A. Left axillary lymph node, wire localized #1 B. Left axillary lymph node, wire localized #2 C. Left axillary lymph node, #3 D. Left axillary lymph node, #4 Condition: stable Disposition: PACU
== END 2025-03-24 13:38 | disposition home or self-care (01) ==
PROVIDERS: PCP Family Medicine; Visit Provider Surgery
PROC: (CPT 38500; principal; 2025-03-24 10:30)
DX: C77.3 Secondary and unspecified malignant neoplasm of axilla and upper limb lymph nodes (principal); C80.1 Malignant (primary) neoplasm, unspecified; I10 Essential (primary) hypertension; E11.9 Type 2 diabetes mellitus without complications; Z79.84 Long term (current) use of oral hypoglycemic drugs; Z79.85 Long-term (current) use of injectable non-insulin antidiabetic drugs; Z79.82 Long term (current) use of aspirin
CPT/HCPCS: 38525; 00400; 01610; 10035; 82962; 88304; 88305; 88341; J2003; C1769; J0665; J0736; J1100; J2250; J2405; J2704; J3010; J7120

== ENCOUNTER 2025-04-14 09:01 | Outpatient (RCR) | payer MEDICARE, SELFPAY | END 2025-10-11 23:59 | disposition home or self-care (01) | LOC: CCIC 09:01 | PROVIDERS: PCP Family Medicine; Visit Provider Internal Medicine Hematology & Oncology | DX: C80.1 Malignant (primary) neoplasm, unspecified (principal); C77.3 Secondary and unspecified malignant neoplasm of axilla and upper limb lymph nodes; Z87.2 Personal history of diseases of the skin and subcutaneous tissue; N39.0 Urinary tract infection, site not specified | CPT/HCPCS: 87086; 99202; 99204 ==

== ENCOUNTER 2025-04-20 12:35 | Outpatient (CLI) | payer MEDICARE, SELFPAY | END 2025-04-20 12:36 | disposition home or self-care (01) | LOC: NFLDREF 04-24 03:20 | PROVIDERS: PCP Family Medicine; Referring Provider Family Medicine; Visit Provider Nurse Practitioner Family | DX: R35.0 Frequency of micturition (principal); N39.0 Urinary tract infection, site not specified | CPT/HCPCS: 87086 ==

== ENCOUNTER 2025-06-13 15:45 | Outpatient (CLI) | payer MEDICARE, SELFPAY | END 2025-06-13 15:46 | disposition home or self-care (01) | LOC: NFLDREF 06-17 13:41 | PROVIDERS: PCP Family Medicine; Referring Provider Family Medicine; Visit Provider Family Medicine | DX: N39.0 Urinary tract infection, site not specified (principal) | CPT/HCPCS: 87086 ==

== ENCOUNTER 2025-06-14 13:45 | Outpatient (RCR) | payer MEDICARE, SELFPAY ==
--- NOTE | 2025-04-22 14:14 | PT.OPEX ---
[facility] [place] [facility] PT [facility] Start: 04/22/25 07:47 Freq: Status: Active Protocol: Document 04/22/25 07:48 [email or web address] (Rec: 04/22/25 14:06 WILLIS [id number]) E-signed By Katherine Sandoval, PT Physical Therapy Outpatient Evaluation Insurance Information Recert Due Date 07/17/25 Insurance Name Medicare B Medical Diagnosis S/P cancer L lymph node resection Treating Diagnosis L UE pain, radiculopathy, swelling, decreased L UE ROM Referring Zuleyma Yee Subjective Subjective Ly reports to PT s/p 4 weeks L axillary lymph node resection. Hx includes on 02/08/25 she went in for a routine mammogram which was abnormal. Additional imaging on 02/11/25 found abnormal activity in 2 lymph nodes. 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 She underwent lymph node removal on 03/24/25. 4 nodes were removed with only 2 revealing cancer without known origin. Otherwise PET scan was normal. She was referred to [facility] for further work-up and tissue was sent there for additional testing however has not had any appointments yet. Generally she was quite sore and swollen in axilla following surgery but this has slowly gotten better. She was initially unable to don a bra d/t discomfort and was given an SELENA bandage to use instead. Has now been able to use a bra and no longer using SELENA . Notes some tightness in L UE and generally feels weak . She would like to regain full ROM and strength to be able to cook, garden and play the guitar. She also notes some tingling/warmth sensation in 2-4th L digits that is new since surgery. Pain Comments -01/10 Date of Last 04/14/25 Physician Visit Objective Other/Pertinent Posture: Objective -slight rounded shoulders Standing UE ROM (R/L): -scaption: 152/144 pull on L -FF: 141/132 -Functional IR: Director Telemetry strength avg R/L lb -44/42 Incision site: 1 inch long incision just above bra line in axilla. Healing well and no s/s of infection. Min scar tissue formation and per MD note small seroma however not palpated on exam today UE Strength (R/L): -ER0: R: 4+/5, L: 4/5 -IR0: R: 4+/5, L: 4+/5 -FF: R: 5-/5, L: 4+/5 -Abduction: R: 5-/5, L: 4+/5 -Mid Trap: R: 4/5, L: 4/5 -Lower Trap: R: 4-/5, L: 4-/5 Functional Test QuickDASH: 11.4/100 Performed & Score Assessment Assessment/ Patient initially seen in PT for the 4 week post- Impression operative evaluation to assess for post-operative impairments that will benefit from continuation of skilled care. She currently presents with [List impairments] that will benefit from skilled care, including therapeutic exercise, manual therapy, neuromuscular education, self-care training and HEP training, in order to return her to her prior level of function and comfort. Plan of Care Rehabilitation Good Potential Physical Therapy 1. Restore shoulder AROM after initial recovery period Goals to improve 1 and 2-handed functional activity ability. 2. Restore functional scoring using Quick DASH assessment tool to 0 to ensure full return to baseline function. 3. Restore functional strength in order to return to cooking, gardening and playing guitar with 0/10 pain or dysfunction Treatment Plan/ Heat,Ice/Cold/Vasopneumatic,Joint Mobilization,Manual Direct Interventions Therapy,Neuromuscular Re-ed,Self-Care/Home Management, Therapeutic Activities,Therapeutic Exercises Frequency/Duration 1x/wk for 4 weeks with additional 2-4 sessions prn based on progress Patient Will Be Completion of LTG(s),Independent w/HEP,Independently Discharged From Progressing Therapy Evaluation Billing Untimed Code 28 Treatment Minutes Complexity Low Certification Information Initial 04/22/25 Certification Date Ending Certification 07/17/25 Date Provider Signature Yes Required Provider Signature POC & Medical Necessity Shows Agreement With Physician NPI Number Write NPI# Here Physician Comment/ : Change Physician Signature Please Sign/Date Here & Date Requested
== END 2025-10-12 23:59 | disposition home or self-care (01) ==
PROVIDERS: PCP Family Medicine; Visit Provider Surgery
DX: C77.3 Secondary and unspecified malignant neoplasm of axilla and upper limb lymph nodes (principal); Z51.89 Encounter for other specified aftercare
CPT/HCPCS: 87086; 97110; 97161; 97165; 97530; 97535

== ENCOUNTER 2025-07-27 08:47 | Outpatient (CLI) | payer MEDICARE, SELFPAY | END 2025-07-27 08:48 | disposition home or self-care (01) | LOC: FBOREF 08:47 | PROVIDERS: PCP Family Medicine; Visit Provider Family Medicine | DX: E11.9 Type 2 diabetes mellitus without complications (principal) | CPT/HCPCS: 82043; 82570 ==

== ENCOUNTER 2025-09-13 14:16 | Outpatient (CLI) | payer MEDICARE, SELFPAY | END 2025-09-13 14:17 | disposition home or self-care (01) | LOC: FBOREF 14:18 | PROVIDERS: PCP Family Medicine; Visit Provider Family Medicine | DX: N89.8 Other specified noninflammatory disorders of vagina (principal) | CPT/HCPCS: 87210 ==